=== PATIENT | male | born 1945 | race Caucasian/White ===

== ENCOUNTER 2017-11-14 12:34 | Emergency (ER) | payer MEDICARE, SELFPAY ==
--- NOTE | 2017-11-14 12:12 | EKG12_ITS ---
Test Reason : PAIN LF SIDE Blood Pressure : / mmHG Vent. Rate : 070 BPM Atrial Rate : 070 BPM P-R Int : 164 ms QRS Dur : 082 ms QT Int : 390 ms P-R-T Axes : 045 000 033 degrees QTc Int : 421 ms Normal sinus rhythm Normal ECG Confirmed by MARGARITA BUCKLEY, MOO ([id number]), editor magazine CARMEN MACIAS ([id number]) on 11/20/2017 5:30:08 PM Referred By: CAITLIN Confirmed By:MOO AVILA MD
--- NOTE | 2017-11-14 12:34 | DT_ITS ---
This patient was seen during an EMR downtime November 11, 2017 - November 18, 2017. This patient may have a combination of paper and electronic documentation or all paper documentation. All documentation is viewable within the e-chart portion of [facility] for each patient visit.
--- NOTE | 2017-11-14 13:45 | RAD_ITS ---
STUDY: X-RAY CHEST REASON FOR EXAM: Male, 72 years old. Weakness. TECHNIQUE: Frontal and lateral views of the chest. COMPARISON: June 22, 2017 FINDINGS: The lungs are mildly hyperexpanded and there is scarring at both bases unchanged. There is no demonstrated pleural abnormality. Normal size heart. Normal mediastinum and autumn. Normal visualized pulmonary arteries. There is atherosclerotic calcification of the aortic arch with tortuosity. Normal visualized thoracic spine. Normal visualized ribs, clavicles, and shoulders. There is no demonstrated abnormality of the visualized soft tissue structures of the upper abdomen. RAD/Chest PA and Lateral IMPRESSION: Stable appearance of the chest with no new or acute pathology. Electronically Signed: Rafael Godinez MD at 12:58 EDT , Service support ,
[2017-11-16 14:20] LABS: AST(SGOT) 15 U/L (15-37); Alanine Aminotransfer ALT/SGPT 22 U/L (16-61); Albumin, Serum 3.5 g/dL (3.2-5.0); Alkaline Phosphatase 56 U/L (45-117); Anion Gap 6 (5-15); BUN 23 mg/dL (7-18); BUN/Creat Ratio 25.3 RATIO (10-20); Calcium,Total 8.5 mg/dL (8.5-10.1); Chloride 107 mmol/L (98-107); Creatinine, Serum 0.91 mg/dL (0.70-1.30); EST Glomerular Filtration Rate 87 mL/min (>60); Est Glom Filt Rate - Afr Amer 105 mL/min (>60); Globulin 3.4 g/dL (2.2-4.2); Glucose 76 mg/dL (74-106); Protein, Total 6.9 g/dL (6.4-8.2); Sodium Level 142 mmol/L (136-145)
[2017-11-17 13:31] LABS: Differential Indicated SCAN CRITERIA MET; Hematocrit 41.7 % (40-54); Mean Corp Hgb Conc 33.6 g/gl (32-36); Mean Corpuscular Hgb 29.6 pg (27.0-32.0); Mean Corpuscular Volume 88.2 fL (80-94); Mean Platelet Vol. 9.3 fl (6.2-12.0); POSITIVE COUNT NO; POSITIVE DIFFERENTIAL YES; POSITIVE MORPHOLOGY NO; Platelet Count 173 K/mm3 (150-450); RBC Distribution Width CV 14.2 % (11.6-14.6); Red Blood Count 4.73 M/mm3 (4.6-6.2); White Blood Count 4.8 K/mm3 (4.4-11.0)
[2017-11-17 13:32] LABS: Absolute Lymphocyte Count 0.56 X10^3/ul (0.83-4.51); Absolute Neutrophil Count 3.6 X10^3/uL (2.0-7.7); Basophil# 0.02 X10^3/uL; Basophil% 0.4 % (0-1); Eosinophil# 0.19 X10^3/uL; Lymphocyte # 0.56 X10^3/ul (4.0); Lymphocyte % 11.8 % (19-41); Monocyte# 0.42 X10^3/uL; Monocyte% 8.8 % (0-10); Neutrophil # 3.56 X10^3/uL (2.7-7.7)
[2017-11-17 13:33] LABS: Differential Comment SCANNED
== END 2017-11-14 15:15 | disposition home or self-care (01) ==
LOC: ED 16:32
PROVIDERS: Emergency Provider Emergency Medicine; Family Provider Family Medicine; PCP Family Medicine
DX: M54.2 Cervicalgia (principal); R53.1 Weakness; E78.00 Pure hypercholesterolemia, unspecified; Z85.46 Personal history of malignant neoplasm of prostate; Z87.891 Personal history of nicotine dependence; Z79.82 Long term (current) use of aspirin; Z79.899 Other long term (current) drug therapy
CPT/HCPCS: 36415; 71046; 80053; 84484; 85025; 93005; 99283; A4216

== ENCOUNTER → 2017-12-27 09:41 | Outpatient (CLI) | payer MEDICARE, SELFPAY ==
[2017-12-27 11:43] LABS: PSA,Total- Diagnostic 1.26 ng/mL (0.0-4.0)
== END ==
PROVIDERS: Family Provider Family Medicine; PCP Family Medicine; Visit Provider Urology
DX: C61 Malignant neoplasm of prostate (principal)
CPT/HCPCS: 36415; 84153

== ENCOUNTER → 2018-01-23 08:47 | Outpatient (CLI) | payer MEDICARE, SELFPAY ==
[2018-01-23 09:08] LABS: Hematocrit 42.2 % (40-54); Hemoglobin 14.1 g/dl (13.0-16.5); Mean Corp Hgb Conc 33.4 g/gl (32-36); Mean Corpuscular Hgb 29.9 pg (27.0-32.0); Mean Corpuscular Volume 89.4 fL (80-94); Mean Platelet Vol. 9.4 fl (6.2-12.0); Platelet Count 197 K/mm3 (150-450); RBC Distribution Width CV 14.2 % (11.6-14.6); RBC Distribution Width SD 46.2 fl (35.1-43.9); Red Blood Count 4.72 M/mm3 (4.6-6.2); Scan Indicated on CBC? Y/N NO; White Blood Count 4.1 K/mm3 (4.4-11.0)
[2018-01-23 09:37] LABS: Anion Gap 4 (5-15); BUN 17 mg/dL (7-18); BUN/Creat Ratio 19.5 RATIO (10-20); Calcium,Total 8.7 mg/dL (8.5-10.1); Chloride 107 mmol/L (98-107); Creatinine, Serum 0.87 mg/dL (0.70-1.30); EST Glomerular Filtration Rate 91 mL/min (>60); Est Glom Filt Rate - Afr Amer 110 mL/min (>60); Glucose 106 mg/dL (74-106); Sodium Level 142 mmol/L (136-145)
== END ==
PROVIDERS: Family Provider Family Medicine; PCP Family Medicine; Visit Provider Otolaryngology
DX: Z01.818 Encounter for other preprocedural examination (principal)
CPT/HCPCS: 36415; 80048; 85027; 93005

== ENCOUNTER → 2018-01-28 16:37 | Outpatient (CLI) | payer MEDICARE, SELFPAY ==
--- NOTE | 2018-01-28 11:51 | SUBM_PTH ---
PATIENT: FRANTZ MEYERS [id number] AGE/SX: 79/M ROOM: RE01/28/[address]: Dr. Benigno Alvarez MD : 1945 BED: DIS: SPEC #: [id number] RECD: 01/28/18 16:34 STATUS: JOHN CELE #: [id number] DENISE: 01/28/18 11:[address]: Benigno Alvarez DEPT: SURGICAL PATHOLOGY RECD BY: Michael Azevedo ENTERED: 01/29/18 12:22 SP TYPE: SUBMAN GL OTHR DR: Dr. Warner Lewis MD [facility] Tissues: Salivary gland, NOS Procedures: Surgery Specimen Level V HEADER OPERATION: Excision left submandibular gland PRE-OP DIAGNOSIS: Chronic sialoadenitis TISSUE SUBMITTED: Left submandibular gland MICROSCOPIC DIAGNOSIS Left submandibular gland, excision: Major salivary gland tissue with focal mild chronic inflammation. SJ:davi 01/30/18 MICROSCOPIC DESCRIPTION Slides are reviewed. GROSS DESCRIPTION Received is one container labeled with the patient's name and not further designated. The specimen consists of two pieces of irregular glandular tissue weighing in aggregate 12.8 gm and measuring 4 x 2.5 x 2 cm and 3.5 x 2 x 1 cm. Both pieces are inked black. Sections do not reveal any mass lesion. The entire specimen is submitted in nine cassettes as follows: 1 & 2 ? smaller piece of tissue, 3-9 ? larger piece of tissue from one end to another end. / LEIF:davi 01/29/18 TC:3 CPT: 22752
== END ==
PROVIDERS: Family Provider Family Medicine; PCP Family Medicine; Visit Provider Otolaryngology
DX: K11.23 Chronic sialoadenitis (principal)
CPT/HCPCS: 88307

== ENCOUNTER 2018-02-04 08:26 | Day surgery (SDC) | payer MEDICARE, SELFPAY ==
[2018-02-04] VITALS (7 sets, daily range): BP systolic 117–157; BP diastolic 71–107; PULSE 64–74; RESP 14–18; TEMP 35.7–36.6; O2SAT 97–100; BMI 26.6
--- NOTE | 2018-02-04 09:30 | COLBX_PTH ---
PATIENT: FRANTZ MEYERS LOC: [facility] U#:[id number] AGE/SX: 72/M ROOM: RE02/04/[address]: Dr. Galen Levin MD : 1945 BED: DIS: 02/04/2018 SPEC #: [id number] RECD: 02/04/18 09:59 STATUS: JOHN CELE #: [id number] DENISE: 02/04/18 09:[address]: Galen Levin DEPT: SURGICAL PATHOLOGY RECD BY: Garfield Perez ENTERED: 02/04/18 12:27 SP TYPE: COLON BX OTHR DR: Dr. 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 No evidence of colitis. AM:davi 8/29/18 MICROSCOPIC DESCRIPTION Slides are reviewed. GROSS DESCRIPTION Received in fixative is one container labeled with the patient's name and designated rectal biopsy. The specimen consists of two irregular fragments of light etienne soft tissue that in aggregate measure 0.5 x 0.3 x 0.1 cm. The specimen is totally submitted in one cassette. / AM:davi 02/04/18 TC:5 CPT: 76626
--- NOTE | 2018-02-04 09:49 | PCM.OPRPT ---
Problem List (1) Radiation proctitis Status: Acute Report of Operation Date of Procedure: 02/04/18 Pre-Operative Diagnosis: Radiation proctitis, acute change of bowel habits, rectal bleeding Post-Operative Diagnosis: Patent colorectal anastomosis, mild radiation proctitis Surgery/Procedure Performed:: Colonoscopy with cold forcep rectal biopsies Description of Surgical Findings:: Timeout and informed consent was obtained. 72-year-old gent was taken to the endoscopy suite. He was placed in the left lateral decubitus position. Throughout the procedure total 100 mg Remeron 3.5 mg of Versed were given as intravenous sedation. Digital rectal exam performed. Mild hemorrhoidal changes. 3+ enlarged smooth prostate. No mass lesions. Flexible colonoscope inserted the rectum advanced quite readily through the left and transverse colon. The patient required being placed supine with transabdominal pressure to get the scope to go to the cecum. The cecum ileocecal valve area was nicely achieved. Bowel prep was good. The scope was carefully withdrawn from the cecum ascending colon transverse colon and descending colon without acute abnormality. Scattered diverticulosis noted on the left. Patent low colorectal anastomosis was identified. There was some mild erythema of the rectum consistent with proctitis. Cold forcep biopsies were obtained. Excess fluid and air was aspirated free the procedure was completed with the patient tolerating it well. Impression No evidence for radiation-induced stricturing. The rectal mucosa though erythematous quite distally still has normal texture. Final pathology is pending. Previous colonoscopy was November 27, 2016. Next screening colonoscopy recommended in 10 years. The patient will be notified of pathology results as they become available. There are no signs of obstruction or stricturing. Mild erythema of the very distal rectum noted. Cc: Dr. Warner Lewis Medications were given in 927. The scope [place] 0931[place] [id number]. The procedure was completed at 1042 Galen Levin M.D., F.A.C.S. Type of Anesthesia:: IV Sedation
== END 2018-02-04 10:47 | disposition home or self-care (01) ==
LOC: EN 08:26 → AC 08:27
PROVIDERS: Family Provider Family Medicine; PCP Family Medicine; Visit Provider Surgery
PROC: 0DJD8ZZ Inspection of Lower Intestinal Tract, Via Natural or Artificial Opening Endoscopic (ICD-10-PCS; CPT 45378; principal; 2018-02-04 09:25)
DX: K63.89 Other specified diseases of intestine (principal); K62.7 Radiation proctitis; K64.9 Unspecified hemorrhoids; I10 Essential (primary) hypertension; E78.5 Hyperlipidemia, unspecified; M19.90 Unspecified osteoarthritis, unspecified site; Z85.46 Personal history of malignant neoplasm of prostate; Z92.3 Personal history of irradiation; Z87.19 Personal history of other diseases of the digestive system; Z90.49 Acquired absence of other specified parts of digestive tract; Z79.899 Other long term (current) drug therapy; Z87.891 Personal history of nicotine dependence
CPT/HCPCS: 45380; 88305; 99152; 99153; J7120

== ENCOUNTER → 2018-05-22 18:45 | Outpatient (CLI) | payer MEDICARE, SELFPAY ==
--- OUTSIDE RECORDS SUMMARY | 2018-07-08 14:57 | XMS RPT_ITS ---
:1945 Author Organization OHIP Support Name Relationship Address Phone R Unavailable Unavailable Unavailable DESAI, LAITH Unavailable [id number] + [facility] [place] [address] CHRISTOPHER DESAI Unavailable [address] + [place] [address] R Unavailable Unavailable Unavailable DESAI, LAITH Unavailable [address] + [place] [address] DARRIUS DESAIICA Un[address] + [place] [address] R Unavailable Unavailable Unavailable DESAI, LAITH Unavailable [address] + [place] [address] DARRIUS DESAIICA Unavailable [address] + [place] [address] R Unavailable Unavailable Unavailable DESAI, LAITH Unavailable [address] + [place] [address] DARRIUS DESAIICA Unavailable [address] + [place] [address] R Unavailable Unavailable Unavailable DESAI, LAITH Unavailable [address] + [place] [address] DARRIUS DESAIICA Unavailable [address] + [place] [address] R Unavailable Unavailable Unavailable DESAI, LAITH Unavailable [address] + [place] [address] STEPHANIE DESAISSICA Unavailable [address] + [place] [address] R Unavailable Unavailable Unavailable DESAI, LAITH Unavailable [address] + [place] [address] STEPHANIE DESAISSICA Unavailable [address] + [place], [place] R Unavailable Unavailable Unavailable DESAI, LAITH Unavailable [address] + [place] [address] DARRIUS DESAIICA Unavailable [address] + [place], [place] R Unavailable Unavailable Unavailable DESAI, LAITH Unavailable [address] + [place] [address] DESAIDARRISU TAYLORICA Unavailable [address] + [place], [place] R Unavailable Unavailable Unavailable DESAI, LAITH Unavailable [address] + [place] [address] R Unavailable Unavailable Unavailable DESAI, LAITH Unavailable [address] + [place] [address] R Unavailable Unavailable Unavailable DESAI, LAITH Unavailable [address] + [place] [address] R Unavailable Unavailable Unavailable DESAI, LAITH Unavailable [address] + [place] [address] Care Team Providers Name Role Phone REGINE DE LEÓN (YE) Attending Unavailable WARNER OVERTON Attending Unavailable BROOKLYNN, WARNER A Referring Unavailable BROOKLYNN, WARNER A Referring Unavailable Betty Omer Attending Unavailable Brooklynn, Warner Primary Care Unavailable Betty Omer Referring Unavailable Galen Levin Attending Unavailable Brooklynn, Warner Referring Unavailable Ruben Freeman Attending Unavailable Brooklynn, Warner Primary Care Unavailable Galen Levin Attending Unavailable Galen Levin Referring Unavailable Brooklynn, Warner Primary Care Unavailable Slade Reid Attending Unavailable Lennie Nino Referring Unavailable Brooklynn, Warner Primary Care Unavailable Brooklynn, Warner Primary Care Unavailable Tristen Kaplan Attending Unavailable Slade Reid Attending Unavailable Lennie Nino Referring Unavailable Brooklynn, Warner Primary Care Unavailable Galen Levin Attending Unavailable Brooklynn, Warner Referring Unavailable Brooklynn, Warner Primary Care Unavailable Carlos Alvarez Attending Unavailable Carlos Alvarez Referring Unavailable Brooklynn, Warner Primary Care Unavailable Galen Levin Attending Unavailable Poonam Galen Referring Unavailable Brooklynn, Warner Primary Care Unavailable Carlos Alvarez Attending Unavailable Warner Overton Primary Care Unavailable Galen Levin Attending Unavailable Galen Levin Referring Unavailable Warner Overton Primary Care Unavailable Galen Levin Consulting Unavailable Galen Levin Attending Unavailable Warner Overton Referring Unavailable PROBLEMS PROBLEMS DATE TYPE CONDITION / CODE ATTENDING STATUS SOURCE 05/23/2018 Unknown R82.998 - Other [place], Betty Active [place] abnormal findings in [facility] urine / Hospital R82.998(ICD-10) Repository 04/24/2018 Unknown K62.5 - Hemorrhage CebulGalen Active [place] of anus and rectum / [facility]ly [facility] K62.5(ICD-10) Hospital Repository 01/17/2018 Unknown 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 / [facility] K62.7(ICD-10) Hospital Repository 12/27/2017 Unknown C61 - Malignant LennieSlade Active [place] neoplasm of prostate [facility] / C61(ICD-10) Hospital Repository 12/06/2017 Unknown M54.2 - Cervicalgia Jwayyed, Active [place] / M54.2(ICD-10) [facility] Repository 12/01/2014 Active Mixed hyperlipidemia NA Active [place] / E78.2(ICD-10) Clinic Main [place] Repository 10/25/2017 Active Other superintendent container terminal NA Active [place] (current) drug Clinic Main therapy / [place] Z79.899(ICD-10) Repository PROCEDURES PROCEDURES No Procedure Records FoundRESULTS RESULTS PROGRESS Observed: 06/27/2018 Status: COMPLETED Source: [place] 7:47 AM [facility] REPOSITORY HNO ID: [id number] Author: Umang De León Service: (none) Author Type: Physician Documentation Improvement Specialist Type: Progress Notes Filed: 06/27/2018 8:36 AM Note Text: Chief Complaint Patient presents with: ED Follow-up HPI Frantz Desai is a 72 year old male who presents here today for ER Follow Up.. Patient was in ER on 06/24/18 for intermittent chest pain. Workup at ER was negative. patient reports he is still getting intermittent twinges of pain on left chest wall/breast. No aggravating or alleviating factors. Symptoms are random. He can not illicit the pain. Currently has mild ache in left lower lateral chest wall. No shortness of breath, no SHELTON, chest pain not worse with activity. No pleuritic chest pain Patient has been trimming his pine trees recently using hedge clippers. No heartburn or abdominal pain. No n/v/d No past hx of cardiac dz No significant family hx of Cardiac dz patient is former smoker- quit . Past medical history, appointments, medications, allergies reviewed. Previous Medical History PAST MEDICAL HISTORY Diagnosis Date - Acid reflux - Allergic rhinitis, cause unspecified Allergic rhinitis - Enlarged prostate - Hypertrophy of prostate without urinary obstruction and other lower urinary tract symptoms (LUTS) Hypertrophy of the prostate w/o obstruction - Impaired fasting glucose 10/13/2010 - Irritable bowel syndrome Irritable bowel - Mental disorder anxiety - Migraine - Mixed hyperlipidemia Hyperlipidemia - Nontraumatic rupture of tendons of biceps (long head) 2006 right arm - Osteoarthrosis, unspecified whether generalized or localized, other specified sites Osteoarthritis Previous Surgical History PAST SURGICAL HISTORY Procedure Laterality Date - CARD CATH DIAGNOSTIC 2002 normal - COLONOSCOPY reported polyp removed - no followup indicated - COLONOSCOPY 03/09/03 Ashleigh Levin. No polyps. Sigmoid diveticulosis - COLONOSCOPY 09/04/06 @ as part of [facility] physical. No polyp , repeat in 10 yrs. - COLONOSCOPY 11/27/2016 repeat 10 yrs - COLONOSCOPY 02/04/2018 Dr. Levin Repeat 10 yrs - KNEE SCOPE,DIAGNOSTIC 2002 Arthroscopy, knee right - LAP COLECTOMY, SIGMOID W/SPEECH INSTRUCTOR 03/10/03 Ashleigh Kelley Diverticulitis with localized perforation - REMOVAL OF TONSILS,<12 Y/O Tonsillectomy - REPAIR ING HERNIA,5+Y/O,REDUCIBL 1994 Hernia repair, inguinal - STRESS TEST 10/25/2016 negative - STRESS TEST 10/25/2016 WNL Family History FAMILY HISTORY Problem Relation Age of Onset - Cancer Mother lung- age 75 - Cancer Brother prostate diagnosed at 64 Patient Allergies ALLERGIES Allergen Reactions - Nut - Unspecified Anaphylaxis headache - Sulfa (Sulfonamide * Rash - Alcohol Other: See Comments headache - Chocolate Other: See Comments headaches Current Medications Current Outpatient Prescriptions on File Prior to Visit: simvastatin (ZOCOR) 20 mg tablet Take 1 tablet by mouth daily at bedtime. rizatriptan (MAXALT) 10 mg tablet Take 1 tablet by mouth as needed. May repeat in 2 hours if needed. No more than 2 tabs in 24hours. sertraline (ZOLOFT) 50 mg tablet TAKE ONE AND ONE-HALF TABLETS ONCE DAILY etodolac (LODINE) 400 mg tablet Take 1 tablet by mouth once daily. tamsulosin ER (FLOMAX) 0.4 mg cap Take 1 capsule by mouth once daily. fluticasone (FLONASE) 50 mcg/actuation nasal spray Use 1 [place] in each nostril once daily. Rinse mouth after use. Multivitamin ORAL Tab Take one(1) tablet daily. Nmwldszuotvdvji-Mxysivbwt-CO (BROMFED DM) 2-30-10 mg/5 mL syrup Take 5-10 ml po q6h prn ADULT LOW DOSE ASPIRIN 81 MG TAB, DELAYED RELEASE Take one(1) tablet daily. No current facility-administered medications on file prior to visit. Social History Social History Marital status: Spouse name: Emmanuelle Years of education: Number of children: 2 Occupational History Occupation Employer Comment [employer]- retired [employer]* Social History Main Topics Smoking status: Former Smoker Packs/day: 0.00 Years: 0.00 Types: Cigarettes Smokeless tobacco: Former User Comment: last smoked 20 years ago (age 39). Smoked for 25 years Alcohol use: No Drug use: No Sexual activity: Yes Partners with: Female Review of Symptoms REVIEW OF SYSTEMS GENERAL: No weight loss, malaise or fevers NECK: Negative for lumps, goiter, pain and significant neck swelling RESPIRATORY: Negative for cough, hemoptysis, wheezing, COPD, dyspnea or shortness of breath CARDIOVASCULAR: Negative for chest pain, leg swelling, CHF or palpitations, See HPI GI: No nausea, vomiting, or diarrhea and No heartburn or reflux symptoms : No history of worsening. dysuria, frequency or incontinence NEURO: No history of headaches, syncope, paralysis, seizures or tremors EXAM: BP 140/94 Pulse 64 Wt 80.3 kg (177 lb) BMI 29.01 kg/m? BP 144/84 Pulse 64 Wt 80.3 kg (177 lb) BMI 29.01 kg/m? Last 5 Encounter BP Readings: Date: BP: 06/27/2018 140/94 02/09/2018 142/84 01/08/2018 100/80 12/31/2017 122/72 10/30/2017 134/78 General Appearance: Well appearing, alert, in no acute distress, well-hydrated, well nourished.. Neck: Supple, no adenopathy; thyroid symmetric, normal size, no bruits. Lungs: lungs clear to auscultation. No wheezing, rhonchi, rales. Heart: RRR without murmur, gallop, or rubs. No ectopy. Chest Wall: no pain to palp. No abnormality noted. Breast: Left breast without masses or abnormality. No axillary lymphadenopathy. Health Maintenance List DTAP,TDAP,TD(1 - Tdap) due on 1963 DIABETES SCREEN due on 10/25/2020 LIPID SCREEN due on 10/25/2022 COLORECTAL CANCER SCREENING,SEE MODIFIER due on 02/05/2028 ADULT PREVNAR-13 Completed INFLUENZA Completed HEPATITIS C SCREENING Completed PNEUMOVAX AGE 65 AND OVER WITH 5YR LOOKBACK Completed Data reviewed ER Report: ECG: NSR Labs: unremarkable CXR: No acute findings. Left lung base with evidence of scarring and/or linear atelectasis. ASSESSMENT/PLAN: 1. Atypical chest pain - ICD9: 786.59, ICD10: R07.89 (primary diagnosis) Atypical chest pain, symptoms are not consistent with cardiac ischemia due to nonexertional nature of symptom and localization of the pain possible etiology include musculoskeletal Given age, will schedule for stress test, however my suspicion for cardiac is low. Symptoms are more consistent with MSK give the location and nature of pain. Patient is to let us know or go to ER if symptoms worsen or if he develops additional symptoms such as lightheadedness, shortness of breath or SHELTON. - STRESS REGULAR W/TREAD 2. Elevated BP without diagnosis of hypertension - ICD9: 796.2, ICD10: R03.0 - Recheck today with minimal improvement - Patient has appointment scheduled in 2 weeks so have BP recheck during that visit. - Goal of BP <130/80 Discussed possible red flags and when to seek medical attention. LORIE BLEVINS Observed: 06/27/2018 Status: COMPLETED Source: [place] 7:40 AM [facility] RE[facility]IT[facility] FRANTZ DESAI ([id number]) 1945 M Date Time Provider Department 06/27/18 7:40 AM MIKE DE LEÓN) RENZO During your visit today, we recorded the following information about you: Pulse Blood pressure Weight 64/minute 144/84 80.3 kg REGINE DE LEÓN PA-C 06/27/2018 8:36 AM Signed Chief Complaint Patient presents with: ED Follow-up HPI Frantz Desai is a 72 year old male who presents here today for ER Follow Up.. Patient was in ER on 06/24/18 for intermittent chest pain. Workup at ER was negative. patient reports he is still getting intermittent twinges of pain on left chest wall/breast. No aggravating or alleviating factors. Symptoms are random. He can not illicit the pain. Currently has mild ache in left lower lateral chest wall. No shortness of breath, no SHELTON, chest pain not worse with activity. No pleuritic chest pain Patient has been trimming his pine trees recently using hedge clippers. No heartburn or abdominal pain. No n/v/d No past hx of cardiac dz No significant family hx of Cardiac dz patient is former smoker- quit . Past medical history, appointments, medications, allergies reviewed. Previous Medical History PAST MEDICAL HISTORY Diagnosis Date - Acid reflux - Allergic rhinitis, cause unspecified Allergic rhinitis - Enlarged prostate - Hypertrophy of prostate without urinary obstruction and other lower urinary tract symptoms (LUTS) Hypertrophy of the prostate w/o obstruction - Impaired fasting glucose 10/13/2010 - Irritable bowel syndrome Irritable bowel - Mental disorder anxiety - Migraine - Mixed hyperlipidemia Hyperlipidemia - Nontraumatic rupture of tendons of biceps (long head) 2006 right arm - Osteoarthrosis, unspecified whether generalized or localized, other specified sites Osteoarthritis Previous Surgical History PAST SURGICAL HISTORY Procedure Laterality Date - CARD CATH DIAGNOSTIC 2002 normal - COLONOSCOPY reported polyp removed - no followup indicated - COLONOSCOPY 03/09/03 Ashleigh Levin. No polyps. Sigmoid diveticulosis - COLONOSCOPY 09/04/06 @ as part of [facility] physical. No polyp , repeat in 10 yrs. - COLONOSCOPY 11/27/2016 repeat 10 yrs - COLONOSCOPY 02/04/2018 Dr. Levin Repeat 10 yrs - KNEE SCOPE,DIAGNOSTIC 2002 Arthroscopy, knee right - LAP COLECTOMY, SIGMOID W/SPEECH INSTRUCTOR 03/10/03 Ashleigh Levin. Diverticulitis with localized perforation - REMOVAL OF TONSILS,<12 Y/O Tonsillectomy - REPAIR ING HERNIA,5+Y/O,REDUCIBL 1994 Hernia repair, inguinal - STRESS TEST 10/25/2016 negative - STRESS TEST 10/25/2016 WNL Family History FAMILY HISTORY Problem Relation Age of Onset - Cancer Mother lung- age 75 - Cancer Brother prostate diagnosed at 64 Patient Allergies ALLERGIES Allergen Reactions - Nut - Unspecified Anaphylaxis headache - Sulfa (Sulfonamide * Rash - Alcohol Other: See Comments headache - Chocolate Other: See Comments headaches Current Medications Current Outpatient Prescriptions on File Prior to Visit: simvastatin (ZOCOR) 20 mg tablet Take 1 tablet by mouth daily at bedtime. rizatriptan (MAXALT) 10 mg tablet Take 1 tablet by mouth as needed. May repeat in 2 hours if needed. No more than 2 tabs in 24hours. sertraline (ZOLOFT) 50 mg tablet TAKE ONE AND ONE-HALF TABLETS ONCE DAILY etodolac (LODINE) 400 mg tablet Take 1 tablet by mouth once daily. tamsulosin ER (FLOMAX) 0.4 mg cap Take 1 capsule by mouth once daily. fluticasone (FLONASE) 50 mcg/actuation nasal spray Use 1 [place] in each nostril once daily. Rinse mouth after use. Multivitamin ORAL Tab Take one(1) tablet daily. Sdqdhjrsrnclmba-Ibcgjxzlj-FH (BROMFED DM) 2-30-10 mg/5 mL syrup Take 5-10 ml po q6h prn ADULT LOW DOSE ASPIRIN 81 MG TAB, DELAYED RELEASE Take one(1) tablet daily. No current facility-administered medications on file prior to visit. Social History Social History Marital status: Spouse name: Emmanuelle Years of education: Number of children: 2 Occupational History Occupation Employer Comment [employer]- retired [employer]* Social History Main Topics Smoking status: Former Smoker Packs/day: 0.00 Years: 0.00 Types: Cigarettes Smokeless tobacco: Former User Comment: last smoked 20 years ago (age 39). Smoked for 25 years Alcohol use: No Drug use: No Sexual activity: Yes Partners with: Female Review of Symptoms REVIEW OF SYSTEMS GENERAL: No weight loss, malaise or fevers NECK: Negative for lumps, goiter, pain and significant neck swelling RESPIRATORY: Negative for cough, hemoptysis, wheezing, COPD, dyspnea or shortness of breath CARDIOVASCULAR: Negative for chest pain, leg swelling, CHF or palpitations, See HPI GI: No nausea, vomiting, or diarrhea and No heartburn or reflux symptoms : No history of worsening. dysuria, frequency or incontinence NEURO: No history of headaches, syncope, paralysis, seizures or tremors EXAM: BP 140/94 Pulse 64 Wt 80.3 kg (177 lb) BMI 29.01 kg/m? BP 144/84 Pulse 64 Wt 80.3 kg (177 lb) BMI 29.01 kg/m? Last 5 Encounter BP Readings: Date: BP: 06/27/2018 140/94 02/09/2018 142/84 01/08/2018 100/80 12/31/2017 122/72 10/30/2017 134/78 General Appearance: Well appearing, alert, in no acute distress, well-hydrated, well nourished.. Neck: Supple, no adenopathy; thyroid symmetric, normal size, no bruits. Lungs: lungs clear to auscultation. No wheezing, rhonchi, rales. Heart: RRR without murmur, gallop, or rubs. No ectopy. Chest Wall: no pain to palp. No abnormality noted. Breast: Left breast without masses or abnormality. No axillary lymphadenopathy. Health Maintenance List DTAP,TDAP,TD(1 - Tdap) due on 1963 DIABETES SCREEN due on 10/25/2020 LIPID SCREEN due on 10/25/2022 COLORECTAL CANCER SCREENING,SEE MODIFIER due on 02/05/2028 ADULT PREVNAR-13 Completed INFLUENZA Completed HEPATITIS C SCREENING Completed PNEUMOVAX AGE 65 AND OVER WITH 5YR LOOKBACK Completed Data reviewed ER Report: ECG: NSR Labs: unremarkable CXR: No acute findings. Left lung base with evidence of scarring and/or linear atelectasis. ASSESSMENT/PLAN: 1. Atypical chest pain - ICD9: 786.59, ICD10: R07.89 (primary diagnosis) Atypical chest pain, symptoms are not consistent with cardiac ischemia due to nonexertional nature of symptom and localization of the pain possible etiology include musculoskeletal Given age, will schedule for stress test, however my suspicion for cardiac is low. Symptoms are more consistent with MSK give the location and nature of pain. Patient is to let us know or go to ER if symptoms worsen or if he develops additional symptoms such as lightheadedness, shortness of breath or SHELTON. - STRESS REGULAR W/TREAD 2. Elevated BP without diagnosis of hypertension - ICD9: 796.2, ICD10: R03.0 - Recheck today with minimal improvement - Patient has appointment scheduled in 2 weeks so have BP recheck during that visit. - Goal of BP <130/80 Discussed possible red flags and when to seek medical attention. REGINE DE LEÓN PA-C Referring Provider: SELF [[id number]] Allergies As of Date: 06/27/2018 Noted Allergy Reaction NUT - UNSPECIFIED 07/06/2009 10 - Anaphylaxis Comments: headache SULFA (SULFONAMIDE ANTIBIOTICS) 04/16/2005 2 - Rash ALCOHOL 07/06/2009 14 - Other: See Comments Comments: headache CHOCOLATE 07/06/2009 14 - Other: See Comments Comments: headaches Date Reviewed: 06/27/2018 Reviewed by: Mike) Sarthak - Fully Assessed Reason for Visit: ED Follow-up [821] Primary Visit Diagnosis:Atypical chest pain [R07.89] Other Visit Diagnosis:Elevated BP without diagnosis of hypertension [R03.0] Order(s):STRESS REGULAR W/TREAD [[id number]] Order #: [id number]: 1 Prescriptions as of 06/27/2018 Sig: SIMVASTATIN 20 MG TABLET Take 1 tablet by mouth daily * RIZATRIPTAN 10 MG TABLET Take 1 tablet by mouth as nee* SERTRALINE 50 MG TABLET TAKE ONE AND ONE-HALF TABLETS* ETODOLAC 400 MG TABLET Take 1 tablet by mouth once d* TAMSULOSIN 0.4 MG CAPSULE Take 1 capsule by mouth once * FLUTICASONE 50 MCG/ACTUATION * Use 1 [place] in each nostril o* MULTIVITAMIN TABLET Take one(1) tablet daily. BROMPHENIRAMINE-PSEUDOEPHEDRI* Take 5-10 ml po q6h prn ADULT LOW DOSE ASPIRIN 81 MG * Take one(1) tablet daily. Problem List As Of Date 06/27/2018 Noted Resolved Osteoarthrosis, unspecified whether generalized*INVALID FOR* Mixed hyperlipidemia [E78.2] INVALID FOR* DISC DEGENERATION NOS [GDH8352] INVALID FOR* Cough [R05] INVALID FOR*07/06/2009 More... More... Colon polyps [K63.5] INVALID FOR* More... Spinal stenosis, lumbar [M48.061] INVALID FOR* Melanoma [C43.9] INVALID FOR* More... Impaired fasting glucose [R73.01] INVALID FOR* Family history of prostate cancer [Z80.42] INVALID FOR* Prostate cancer (HCC) [C61] INVALID FOR* More... Well adult exam [Z00.00] INVALID FOR* More... Irritable bowel syndrome without diarrhea [K58.*INVALID FOR* Allergic rhinitis [J30.9] INVALID FOR* Benign non-nodular prostatic hyperplasia withou*INVALID FOR* Cluster headache, not intractable [G44.009] INVALID FOR* More... Generalized anxiety disorder [F41.1] INVALID FOR* Hiatal hernia [K44.9] INVALID FOR* GERD with esophagitis [K21.0] INVALID FOR* Medicare annual wellness visit, subsequent [Z00*INVALID FOR* More... Encounter Status:Closed by REGINE MAN on 06/27/18 12 LEAD ELECTROCARDIOGRAM Observed: 06/26/2018 Status: F Source: [place] 3:56 PM [facility] REPOSIT[facility] Cardiovascular Services [address] [place] [id number] 12 Lead EKG 06/24/18 1337 MR#: [id number] Acct: [id number] Name: FRANTZ DSEAI Rep #: [id number] : 1945 72 From: Javier Galvez MD Attending Dr: Status: DEP ER Ordering Dr: Tristen Kaplan MD Date: 06/24/18 Location: ED Sex: M C Admitted: Test Reason : CHEST PAIN Blood Pressure : / mmHG Vent. Rate : 077 BPM Atrial Rate : 077 BPM P-R Int : 166 ms QRS Dur : 076 ms QT Int : 380 ms P-R-T Axes : 049 -03 053 degrees QTc Int : 430 ms Normal sinus rhythm Normal ECG Confirmed by LEONOR BUCKLEY, JAVIER ([id number]), editorial intern CARMEN MACIAS ([id number]) on 06/26/2018 3:55:39 PM Referred By: Slade Reid Confirmed By:JAVIER GALVEZ MD 06/26/18 1555 Date Javier Galvez MD CC: Tristen Kaplan MD; Warner Overton MD Signed EMERGENCY DEPARTMENT Observed: 06/24/2018 Status: F Source: [place] SUMMARY 4:09 PM [facility] REPOSITORY [facility] Medical Records Department [address] [place] [address] Emergency Department Summary 06/24/18 1553 MR#: [id number] Acct: [id number] Name: FRANTZ DESAI Rep #: [id number] : 1945 72 From: Tristen Kaplan MD PCP: Warner Overton MD Status: REG ER - ER Visit Summary Date of Service: 06/24/18 Chief Complaint: Chest pain History of Present Illness: The patient is a 72 M with left- sided chest pain intermittently for 3 days. The pain feels like a twinge in his left chest. Associated with some mild nausea and hot flashes. No pain or symptoms with exertion. No history of coronary disease, aortic disease, or venous thromboembolism. No cough or sputum. No other GI symptoms. Non-smoker. History of hyperlipidemia. Physical Examination: Afebrile and vital signs unremarkable. Alert and oriented. No acute distress. Skin appears normal without pallor or diaphoresis. Heart regular rate and rhythm. Lungs clear in all carnes. Abdomen soft and nontender. Extremities nontender with no edema. Pulses strong and equal. Test Results: EKG showed sinus rhythm at a rate of 77. No signs of ischemia, infarction, or nonspecific changes. Chest x-ray showed left base atelectasis versus scarring. CBC, metabolic panel, troponin normal. Emergency Department Course and Treatment: Patient declined aspirin because of an upcoming hemorrhoid surgery. He was placed on a monitor. Had no further events or changes during his stay. His workup was unremarkable. His symptoms are atypical for cardiac pain. There is nothing to suggest aortic disease or PE. This does not appear to be infectious. He does have a history of similar symptoms from acid reflux. This was considered. Patient's history, exam, and workup are reassuring. I advised that I cannot rule out cardiac, aortic, or PE disease entirely, but I have low suspicion. Patient was discussed with Dr. Leija who was on-call for his PCP. They will follow-up with him as an outpatient. Advised the patient to return right away if he has new or worsening issues. Treatment Plan: As above Disposition: Discharge Impression: 1. Chest pain unclear etiology This note was generated with Central Test[employer] software. It may contain incorrect words, spelling, and punctuation that were not noted in review of the chart prior to signing ED Disposition - Plan for ED Patient: Chief Complaint: Chest Pain Referrals: Warner Overton MD [Primary Care Provider] - What to do if you have Problems For any increased pain, shortness of breath, bleeding, nausea or vomiting, chest pain, or any unexpected problems, contact your Primary Care Provider. Call [facility] ([phone]) or report to the closest Emergency Room. Call 911 if necessary. 06/24/18 1609 <Electronically signed by Tristen Kaplan MD> Date Tristen Kaplan MD Cosigner Signature (If Indicated): Date CC: Warner Overton MD DISCHARGE INSTRUCTION Observed: 06/24/2018 Status: F Source: [place] 4:09 PM [facility] REPOSITORY [facility] Medical Records Department [address] [place] [address] Discharge Instruction 06/24/18 1558 MR#: [id number] Acct: [id number] Name: FRANTZ DESAI Rep #: [id number] : 1945 72 From: Tristen Kaplan MD PCP: Warner Overton MD Status: REG ER ED Disposition - Plan for ED Patient: Chief Complaint: Chest Pain Instructions: ED Chest Pain Atypical Unkn Cause Referrals: Warner Overton MD [Primary Care Provider] - What to do if you have Problems For any increased pain, shortness of breath, bleeding, nausea or vomiting, chest pain, or any unexpected problems, contact your Primary Care Provider. Call [facility] ([phone]) or report to the closest Emergency Room. Call 911 if necessary. 06/24/18 1609 <Electronically signed by Tristen Kaplan MD> Date Tristen Kaplan MD Cosigner Signature (If Indicated): Date CC: Warner Overton MD CHEST 1 VIEW Observed: 06/24/2018 Status: F Source: [place] (PORTABLE) 2:00 PM [facility] REPOSITORY [facility] Imaging Services [address] [place] [id number] Chest 1 View (Portable) MR#: [id number] Acct: [id number] Name: FRANTZ DESAI Rep #: [id number] : 1945 M 72 From: Mark Kelsey MD PCP: Warner Overton MD Status: REG ER Study: Chest 1 View (Portable) Date of Exam: 06/24/18 Exam# [id number] Ordering Dr: Tristen Kaplan MD STUDY: X-RAY CHEST REASON FOR EXAM: Male, 72 years old. Chest pain. TECHNIQUE: Single AP portable view of the chest. COMPARISON: Comparison is made with prior study dated June 22, 2017. FINDINGS: EKG electrodes are seen. Stable mild increased markings at the left lung base suggestive of atelectasis and/or scarring. There is no demonstrated pleural abnormality. Normal size heart. Normal mediastinum and autumn. Normal visualized pulmonary arteries. There is atherosclerotic tortuosity of the aortic arch and descending thoracic aorta. Normal visualized thoracic spine. Normal visualized ribs, clavicles, and shoulders. There is no demonstrated abnormality of the visualized soft tissue structures of the upper abdomen. RAD/Chest 1 View (Portable) IMPRESSION: Stable mild increased linear markings at the left lung base suggestive of linear atelectasis and/or scarring. Electronically Signed: Mark Kelsey MD at 14:41 EST Tel [phone], Service support , CC: Tristen Kaplan MD; Warner Overton MD Forwarder Operator: Signed CBC W/DIFF, AUTOMATED Collected: 06/24/2018 Status: F Source: [place] 1:42 PM [facility] REPOSIT[facility] TYPE CODE TESTS RESULT OUT OF RANGE REFERENCE UNITS LAB L100.1000 4.4-11.0 K/mm3 Normal WBC 4.9 LAB L100.1200 4.6-6.2 M/mm3 Normal RBC 4.96 LAB L100.1300 13.0-16.5 g/dl Normal HGB 14.3 LAB L100.1400 40-54 % Normal HCT 43.8 LAB L100.1500 80-94 fL Normal MCV 88.3 LAB L100.1600 27.0-32.0 pg Normal MCH 28.8 LAB L100.1700 32-36 g/gl Normal MCHC 32.6 LAB L100.1810 11.6-14.6 % Normal RDW CV 14.2 LAB L100.1820 35.1-43.9 fl High RDW SD 45.5 LAB L100.1900 150-450 K/mm3 Normal PLT 199 LAB L100.2000 6.2-12.0 fl Normal MPV 9.7 LAB L100.2100 47-70 % High NEUT% 70.9 LAB L100.2200 19-41 % Low LY% 16.8 LAB L100.2300 0-10 % Normal MONO% 8.6 LAB L100.2400 0-5 % Normal EO% 2.9 LAB L100.2500 0-1 % Normal BASO% 0.6 LAB L100.2550 0.0-0.9 % Normal IM GRAN % 0.200 Result Comment: IG% - Immature Granulocytes (promyelocytes, myelocytes and metamyelocytes) > 1% indicates that a LEFT SHIFT is Present. LAB L100.2620 2.0-7.7 X10 3/uL Normal Absolute Neut 3.5 LAB L100.2720 0.83-4.51 X10 3/ul Low Absolute Lymph 0.82 Performed By: #### L100.0100 #### [facility] [address] [place], [place], [address] BASIC METABOLIC Collected: 06/24/2018 Status: F Source: [place] PROFILE ([facility]) 1:42 PM [facility] REPOSIT[facility] TYPE CODE TESTS RESULT OUT OF RANGE REFERENCE UNITS LAB L501.0100 74-106 mg/dL Normal GLU 95 Result Comment: Please note revised GLUCOSE reference range effective 2017. LAB L501.1000 7-18 mg/dL Normal BUN 15 LAB L501.1100 0.70-1.30 mg/dL Normal CREAT,SERUM 0.85 Result Comment: The validity of the calculated GFR AND GFRAA in patients over 70 years has not been determined. Clinical correlation is essential. LAB L501.1110 >60 mL/min Normal EST GFR 94 Result Comment: Non- GFR Calc LAB L501.1115 >60 mL/min Normal EST GFR - AA 113 Result Comment: GFR Calc LAB L501.1255 ml/min Normal Estimated CRCL 74.88 LAB L501.1300 10-20 RATIO Normal BUN/CRE 17.6 LAB L501.2200 8.5-10 mg/dL Normal .1 CA 8.7 LAB L501.5300 136-14 mmol/L Normal 5 NA 140 LAB L501.5600 3.5-5. mmol/L Normal 1 K 4.0 LAB L501.5900 98-107 mmol/L Normal CL 106 LAB L501.6100 21.0-3 mmol/L Normal 2.0 CO2 27.0 LAB L501.6200 5-15 Normal GAP 7 Performed By: #### L500.2500, L501.4010 #### [facility] [address] [place], [address] TROPONIN-I Collected: 06/24/2018 Status: F Source: [place] 1:42 PM [facility] REPOSITORY TYPE CODE TESTS RESULT OUT OF RANGE REFERENCE UNITS LAB L501.4010 <0.045 ng/mL Normal < 0.015 TROPONIN-I Result Comment: TROPONIN-I EXPECTED VALUES <0.045 Negative 0.045 - 0.590 Consistent with Cardiac Damage > OR = 0.600 Critical Value Not every elevated troponin is indicative of MA. These values should be used with clinical judgement in examining the patient's clinical picture for diagnosis. To establish a diagnosis of MA versus myocardial injury, there must be a demonstrated rise and/or fall in the troponin values, in addition to ischemic symptoms, EKG changes, new regional wall motion abnormality, and/or angiographical evidence. PLEASE NOTE: REFERENCE RANGES EDITED 17 Performed By: #### L500.2500, L501.4010 #### [facility] [address] [place], [address] CBC-COMPLETE BLOOD CNT Collected: 06/23/2018 Status: F Source: [place] NO DIFF 9:28 AM [facility] REPOSITORY Order Comment: PSAD FOR DR REID CBC BMP FOR DR LEVIN TYPE CODE TESTS RESULT OUT OF RANGE REFERENCE UNITS LAB L100.1000 4.4-11.0 K/mm3 Normal WBC 4.5 LAB L100.1200 4.6-6.2 M/mm3 Normal RBC 5.05 LAB L100.1300 13.0-16.5 g/dl Normal HGB 14.7 LAB L100.1400 40-54 % Normal HCT 45.5 LAB L100.1500 80-94 fL Normal MCV 90.1 LAB L100.1600 27.0-32.0 pg Normal MCH 29.1 LAB L100.1700 32-36 g/gl Normal MCHC 32.3 LAB L100.1810 11.6-14.6 % Normal RDW CV 14.2 LAB L100.1820 35.1-43.9 fl High RDW SD 46.2 LAB L100.1900 150-450 K/mm3 Normal PLT 185 LAB L100.2000 6.2-12.0 fl Normal MPV 9.5 Performed By: #### L100.0500 #### [facility] [address] [place], [address] BASIC METABOLIC Collected: 06/23/2018 Status: F Source: [place] PROFILE (BMP) 9:28 AM [facility] REPOSIT[facility] Order Comment: PSAD FOR DR REID CBC BMP FOR DR LEVIN TYPE CODE TESTS RESULT OUT OF RANGE REFERENCE UNITS LAB L501.0100 74-106 mg/dL High GLU 111 Result Comment: Fasting Glucose result from 100 to 125 mg/dL suggests IMPAIRED HOMEOSTASIS per A.D.A. criteria. Please note revised GLUCOSE reference range effective 2017. LAB L501.1000 7-18 mg/dL High BUN 19 LAB L501.1100 0.70-1.30 mg/dL Normal CREAT,SERUM 0.83 Result Comment: The validity of the calculated GFR AND GFRAA in patients over 70 years has not been determined. Clinical correlation is essential. LAB L501.1110 >60 mL/min Normal EST GFR 97 Result Comment: Non- GFR Calc LAB L501.1115 >60 mL/min Normal EST GFR - AA 117 Result Comment: GFR Calc LAB L501.1300 10-20 RATIO High BUN/CRE 22.9 LAB L501.2200 8.5-10.1 mg/dL CA Normal 8.8 LAB L501.5300 136-145 mmol/L NA Normal 140 LAB L501.5600 3.5-5.1 mmol/L K Normal 4.2 LAB L501.5900 98-107 mmol/L CL Normal 104 LAB L501.6100 21.0-32.0 mmol/L Normal CO2 30.0 LAB L501.6200 5-15 Normal GAP 6 Performed By: #### L500.2500, L501.9940 #### [facility] [address] [place], [address] PSA,TOTAL- DIAGNOSTIC Collected: 06/23/2018 Status: F Source: [place] 9:28 AM [facility] REPOSIT[facility] Order Comment: PSAD FOR DR REID CBC BMP FOR DR LEVIN TYPE CODE TESTS RESULT OUT OF RANGE REFERENCE UNITS LAB L501.9940 0.0-4.0 ng/mL PSA, Normal DIAGNOSTIC 1.05 Result Comment: This test was performed using the TPSA assay method for the Transifex chemistry system. Values obtained with different assay methods cannot be used interchangably. When changing PSA assays in the course of monitoring a patient, additional sequential testing should be carried out to confirm baseline values. Performed By: #### L500.2500, L501.9940 #### [facility] [address] [place], [address] SURGERY VISIT REPORT Observed: 05/28/2018 Status: F Source: [place] 5:16 PM [facility] REPOSITORY [facility] [address] [place] [address] OFFICE VISIT Date of Service: 05/28/18 MR#: [id number] Acct: [id number] Name: FRANTZ DESAI Rep #: [id number] : 1945 Provider: Galen Levin MD Age/Sex: 72/M Location: [facility] Status: Signed Intake Intake Visit Reasons: F/U Rectal Bleeding seen 04/24 Chief Complaint: recheck rectal bleeding Change Release Manager Required: No Is patient in pain?: No Allergies Sulfa (Sulfonamide Antibiotics) Adverse Reaction (Verified 05/28/18 07:47) Unknown Medications Fluticasone Propionate [Allergy Relief] 15.8 ml NS DAILY 09/24/16 [History Confirmed 05/28/18] Rizatriptan Benzoate [Maxalt] 10 mg PO PRN PRN 09/24/16 [History Confirmed 05/28/18] Sertraline HCl [Zoloft] 50 mg PO DAILY 09/24/16 [History Confirmed 05/28/18] Simvastatin [Zocor] 20 mg PO QHS 09/24/16 [History Confirmed 05/28/18] Tamsulosin HCl [Flomax] 0.4 mg PO DAILY 09/24/16 [History Confirmed 05/28/18] Etodolac 400 mg PO DAILY 06/22/17 [History Confirmed 05/28/18] Aspirin [Aspirin, Baby] 81 mg PO DAILY@0800 02/04/18 [History Confirmed 05/28/18] Multivitamin [Daily Multiple Vitamin] 1 ea PO DAILY 02/04/18 [History Confirmed 05/28/18] Subjective Details: 72-year-old gentleman returns today. He has had problems with rectal bleeding. I performed a colonoscopy demonstrating hemorrhoids and possibly some radiation proctitis but biopsies did not confirm the radiation proctitis. He has had radiation treatment for prostate cancer. Despite being taken off the aspirin and not being on any anticoagulants he continues to have rectal bleeding bright red is noted on the stool. On a couple occasions he has noted it without defecation and is been present on his undergarments. This point he would like to attempt a definitive treatment MR#:[id number]:[id number] Name: FRANTZ DESAI HRep #:[id number] : 1945 Provider:Galen Levin MD Age/Sex: 72/M Location:[facility] Status:Signed Intake Intake Visit Reasons: Rectal Bleeding - Self Ref Chief Complaint: rectal bleeding/ c-scope Change Release Manager Required: No Is patient in pain?: No Allergies Sulfa (Sulfonamide Antibiotics) Adverse Reaction (Verified 04/24/18 07:37) Unknown Medications Fluticasone Propionate [Allergy Relief] 15.8 ml NS DAILY 09/24/16 [History Confirmed 02/04/18] Rizatriptan Benzoate [Maxalt] 10 mg PO PRN PRN 09/24/16 [History Confirmed 02/04/18] Sertraline HCl [Zoloft] 50 mg PO DAILY 09/24/16 [History Confirmed 02/04/18] Simvastatin [Zocor] 20 mg PO QHS 09/24/16 [History Confirmed 02/04/18] Tamsulosin HCl [Flomax] 0.4 mg PO DAILY 09/24/16 [History Confirmed 02/04/18] Etodolac 400 mg PO DAILY 06/22/17 [History Confirmed 02/04/18] Aspirin [Aspirin, Baby] 81 mg PO DAILY@0800 02/04/18 [History Confirmed 02/04/18] Multivitamin [Daily Multiple Vitamin] 1 ea PO DAILY 02/04/18 [History Confirmed 02/04/18] [facility] Medical History Rectal bleeding (Acute) Environmental allergies (Acute) Hyperlipidemia (Acute) Prostate cancer (Acute) HTN (hypertension) (Chronic) Surgical History History of colonoscopy (Acute 01/2018) H/O colonoscopy (Acute) History of partial colectomy (Acute) S/P inguinal hernia repair (Acute) S/P right knee arthroscopy (Acute) Family History Brother Cancer prostate Social History Smoking Status: Former smoker alcohol intake: never HPI HPI HPI: FRANTZ DESAI, is a 72 M who presents to the office today for ongoing surgical follow-up because of rectal bleeding. The patient has had a history of prostate cancer with radiation treatment. He presented with rectal bleeding. I performed a colonoscopy on him on February 04, 2018. Rectal biopsies were negative for radiation proctitis. The patient returns today complaining of ongoing almost daily painless rectal bleeding. [facility] Medical Records Department [address] [place] [address] Operative Report 02/04/18 0949 MR#: [id number]:[id number] Name: FRANTZ DESAI [facility] #:[id number] : [id number]: Galen Levin MD PCP:Warner Overton MD Status:REG [facility] Location: [place] [address] Problem List (1) Radiation proctitis Status: Acute Report of Operation Date of Procedure: 02/04/18 Pre-Operative Diagnosis: Radiation proctitis, acute change of bowel habits, rectal bleeding Post-Operative Diagnosis: Patent colorectal anastomosis, mild radiation proctitis Surgery/Procedure Performed:: Colonoscopy with cold forcep rectal biopsies Description of Surgical Findings:: Timeout and informed consent was obtained. 72-year-old gent was taken to the endoscopy suite. He was placed in the left lateral decubitus position. Throughout the procedure total 100 mg Remeron 3.5 mg of Versed were given as intravenous sedation. Digital rectal exam performed. Mild hemorrhoidal changes. 3+ enlarged smooth prostate. No mass lesions. Flexible colonoscope inserted the rectum advanced quite readily through the left and transverse colon. The patient required being placed supine with transabdominal pressure to get the scope to go to the cecum. The cecum ileocecal valve area was nicely achieved. Bowel prep was good. The scope was carefully withdrawn from the cecum ascending colon transverse colon and descending colon without acute abnormality. Scattered diverticulosis noted on the left. Patent low colorectal anastomosis was identified. There was some mild erythema of the rectum consistent with proctitis. Cold forcep biopsies were obtained. Excess fluid and air was aspirated free the procedure was completed with the patient tolerating it well. Impression No evidence for radiation-induced stricturing. The rectal mucosa though erythematous quite distally still has normal texture. Final pathology is pending. Previous colonoscopy was November 27, 2016. Next screening colonoscopy recommended in 10 years. The patient will be notified of pathology results as they become available. There are no signs of obstruction or stricturing. Mild erythema of the very distal rectum noted. Cc: Dr. Warner Overton Medications were given in 09. The [place] 0931[place] [address]. The procedure was completed at 1042 Galen Levin M.D., F.A.C.S. Type of Anesthesia:: IV Sedation 02/04/18 0952<Electronically signed by Galen Levin MD> Date Galen Levin MD CC: Warner Overton MD; Galen Levin MD Signed Exam GI Other: External anus appears to be clean. Minimal hemorrhoidal findings. On digital exam he has some moderate internal hemorrhoids. Nontender. 3+ enlarged prostate. No active bleeding. Assessment AND Plan Problems 1. Rectal bleeding K62.5 Plan Upon further discussing features with him it has become apparent that he is taking a daily aspirin. He claims that he recently injured his right ear with a small scrape that then bled profusely. He has not had any documented heart disease. He has not had any documented colon polyps. No family history of colon cancer. He has not been prescribed the aspirin but has been taking it on his own account. With that in mind I have asked him to cease his aspirin at this time. He is to give me a phone call contact in 3 weeks with an assessment as to whether his breathing is any better. If he is still having bleeding then I would consider a examination under anesthesia with anticipated internal hemorrhoidectomy with a sutured approach. Because of his previous rectal radiation I would not risk hemorrhoidal banding or stapling. I believe that he would have the best chance of healing with a surgical hemorrhoidectomy. The majority of his hemorrhoids are internal. Is of additional note that the patient was questioning whether this could be diverticular bleeding. I do not believe that his clinical presentation is consistent with that. Galen Levin M.D., Pavithra.CNaveenS. Coding Level of Care Code Off vis,est,level 2 Diagnoses Rectal bleeding K62.5 04/24/18 0759<Electronically signed by Galen Levin MD> Date Galen Levin MD Objective Details: Patient is alert no acute distress Chest: Clear to auscultation with good effort Cardiac exam regular rate and rhythm Abdomen is soft, nontender, no gross hepatosplenomegaly Calves are supple nontender Neurologic exam grossly intact Assessment AND Plan Plan I am recommending to the patient examination under anesthesia believe this could be accomplished under monitored anesthesia care and local anesthetic I anticipate a surgical hemorrhoidectomy I anticipate the possible use of argon beam to treat radiation proctitis. He is aware of technique, benefits, risks and alternatives. We will proceed at his discretion. Galen Levin M.D., F.A.C.S. Coding Level of Care Code Off vis,est,level 2 05/28/18 1716 <Electronically signed by Galen Levin MD> Date Galen Levin MD Cosigner Signature: Date (if applicable) CC: Observed: 05/22/2018 Status: F Source: [place] CULTURE, URINE 10:45 AM [facility] REPOSITORY Urine Culture Culture exhibits no growth. Performed By: #### M100.0650 #### [facility] [address] [place], [address] SURGERY VISIT REPORT Observed: 04/24/2018 Status: F Source: [place] 7:59 AM [facility] REPOSITORY [facility] [address] [place] [address] OFFICE VISIT Date of Service: 04/24/18 MR#: [id number] Acct: [id number] Name: FRANTZ DESAI Rep #: [id number] : 1945 Provider: Galen Levin MD Age/Sex: 72/M Location: [facility] Status: Signed Intake Intake Visit Reasons: Rectal Bleeding - Self Ref Chief Complaint: rectal bleeding/ c-scope Change Release Manager Required: No Is patient in pain?: No Allergies Sulfa (Sulfonamide Antibiotics) Adverse Reaction (Verified 04/24/18 07:37) Unknown Medications Fluticasone Propionate [Allergy Relief] 15.8 ml NS DAILY 09/24/16 [History Confirmed 02/04/18] Rizatriptan Benzoate [Maxalt] 10 mg PO PRN PRN 09/24/16 [History Confirmed 02/04/18] Sertraline HCl [Zoloft] 50 mg PO DAILY 09/24/16 [History Confirmed 02/04/18] Simvastatin [Zocor] 20 mg PO QHS 09/24/16 [History Confirmed 02/04/18] Tamsulosin HCl [Flomax] 0.4 mg PO DAILY 09/24/16 [History Confirmed 02/04/18] Etodolac 400 mg PO DAILY 06/22/17 [History Confirmed 02/04/18] Aspirin [Aspirin, Baby] 81 mg PO DAILY@0800 02/04/18 [History Confirmed 02/04/18] Multivitamin [Daily Multiple Vitamin] 1 ea PO DAILY 02/04/18 [History Confirmed 02/04/18] [facility] Medical History Rectal bleeding (Acute) Environmental allergies (Acute) Hyperlipidemia (Acute) Prostate cancer (Acute) HTN (hypertension) (Chronic) Surgical History History of colonoscopy (Acute 01/2018) H/O colonoscopy (Acute) History of partial colectomy (Acute) S/P inguinal hernia repair (Acute) S/P right knee arthroscopy (Acute) Family History Brother Cancer prostate Social History Smoking Status: Former smoker alcohol intake: never HPI HPI HPI: FRANTZ DESAI, is a 72 M who presents to the office today for ongoing surgical follow-up because of rectal bleeding. The patient has had a history of prostate cancer with radiation treatment. He presented with rectal bleeding. I performed a colonoscopy on him on February 04, 2018. Rectal biopsies were negative for radiation proctitis. The patient returns today complaining of ongoing almost daily painless rectal bleeding. [facility] Medical Records Department [address] [place] [address] Operative Report 02/04/18 0949 MR#: [id number] Name: FRANTZ DESAI [facility] #:[id number] : [id number]: Galen Levin MD PCP:Warner Overton MD Status:REG [facility] Location: [id number] Problem List (1) Radiation proctitis Status: Acute Report of Operation Date of Procedure: 02/04/18 Pre-Operative Diagnosis: Radiation proctitis, acute change of bowel habits, rectal bleeding Post-Operative Diagnosis: Patent colorectal anastomosis, mild radiation proctitis Surgery/Procedure Performed:: Colonoscopy with cold forcep rectal biopsies Description of Surgical Findings:: Timeout and informed consent was obtained. 72-year-old gent was taken to the endoscopy suite. He was placed in the left lateral decubitus position. Throughout the procedure total 100 mg Remeron 3.5 mg of Versed were given as intravenous sedation. Digital rectal exam performed. Mild hemorrhoidal changes. 3+ enlarged smooth prostate. No mass lesions. Flexible colonoscope inserted the rectum advanced quite readily through the left and transverse colon. The patient required being placed supine with transabdominal pressure to get the scope to go to the cecum. The cecum ileocecal valve area was nicely achieved. Bowel prep was good. The scope was carefully withdrawn from the cecum ascending colon transverse colon and descending colon without acute abnormality. Scattered diverticulosis noted on the left. Patent low colorectal anastomosis was identified. There was some mild erythema of the rectum consistent with proctitis. Cold forcep biopsies were obtained. Excess fluid and air was aspirated free the procedure was completed with the patient tolerating it well. Impression No evidence for radiation-induced stricturing. The rectal mucosa though erythematous quite distally still has normal texture. Final pathology is pending. Previous colonoscopy was November 27, 2016. Next screening colonoscopy recommended in 10 years. The patient will be notified of pathology results as they become available. There are no signs of obstruction or stricturing. Mild erythema of the very distal rectum noted. Cc: Dr. Warner Overton Medications were given in 927. The scope was inserted 930. [place] [address]. The procedure was completed at 1042 Galen Levin M.D., F.A.C.S. Type of Anesthesia:: IV Sedation 02/04/18 0952<Electronically signed by Galen Levin MD> Date Galen Levin MD CC: Warner Overton MD; Galen Levin MD Signed Exam GI Other: External anus appears to be clean. Minimal hemorrhoidal findings. On digital exam he has some moderate internal hemorrhoids. Nontender. 3+ enlarged prostate. No active bleeding. Assessment AND Plan Problems 1. Rectal bleeding K62.5 Plan Upon further discussing features with him it has become apparent that he is taking a daily aspirin. He claims that he recently injured his right ear with a small scrape that then bled profusely. He has not had any documented heart disease. He has not had any documented colon polyps. No family history of colon cancer. He has not been prescribed the aspirin but has been taking it on his own account. With that in mind I have asked him to cease his aspirin at this time. He is to give me a phone call contact in 3 weeks with an assessment as to whether his breathing is any better. If he is still having bleeding then I would consider a examination under anesthesia with anticipated internal hemorrhoidectomy with a sutured approach. Because of his previous rectal radiation I would not risk hemorrhoidal banding or stapling. I believe that he would have the best chance of healing with a surgical hemorrhoidectomy. The majority of his hemorrhoids are internal. Is of additional note that the patient was questioning whether this could be diverticular bleeding. I do not believe that his clinical presentation is consistent with that. Galen Levin M.D., F.A.C.S. Coding Level of Care Code Off vis,est,level 2 Diagnoses Rectal bleeding K62.5 04/24/18 0759 <Electronically signed by Galen Levin MD> Date Galen Levin MD Cosigner Signature: Date (if applicable) CC: Warner Overton MD PROGRESS Observed: 02/09/2018 Status: COMPLETED Source: [place] 12:[address] [facility] REPOSITORY HNO ID: [id number] Author: Bridgette (Paralegal Supervisor) Older Service: (none) Author Type: Nurse Practitioner Type: Progress Notes Filed: 02/09/2018 1:28 PM Note Text: CC: Patient presents with: left ear pain: x 10 days HPI: Frantz Desai is a 72 year old male who presents to the office with complaint of left ear pain for 10 days. Also reports pain in left maxillary sinus and left jaw. Patient states he had left salivary gland removed two weeks ago. History of sinus infection one month ago requiring treatment with two different antibiotics. Denies fever, chills, muffled hearing, drainage from ear. Surgical site left neck appears normal to patient. Denies swelling or pain inside mouth or purulent drainage. Is able to fully open and close mouth but does cause some discomfort. Treatments tried include Claritin daily with minor relief of symptoms. Smoker: No Seasonal/environmental allergies: Yes The ROS is otherwise negative. The patient's pmh, medications, allergies, and past visits are reviewed. PHYSICAL EXAM: BP 142/84 Pulse 68 Temp 36.7 ?C (98.1 ?F) (Right Tympanic) Resp 16 Wt 77.9 kg (171 lb 12.8 oz) SpO2 98% BMI 28.15 kg/m? General appearance: healthy, alert, cooperative, pleasant, in no acute distress Head: Normocephalic Eyes: conjunctiva pink and moist, no icterus, sclera white, non-injected Ears: Right ear: External ear/canal- Normal, TM - clear with good landmarks. Left ear: External ear/canal- Normal, TM - clear with good landmarks Nose: sinus tenderness over maxillary sinuses left. Oropharynx:moist without lesions, No erythema, exudates or tonsillar hypertrophy., oral mucosa normal. Incision left neck well approximated without redness, drainage, induration, fluctuance. Neck:supple and no adenopathy Heart: Negative. RRR without obvious murmur, gallop, or rubs. No ectopy. Lungs: clear to auscultation, without rales or wheeze, good air exchange ASSESSMENT/PLAN: 1. Left ear pain - ICD9: 388.70, ICD10: H92.02 Possible eustachian tube dysfunction Secondary to recent sinus infection vs left salivary gland removal No evidence of surgical infection or otitis media. No alarm symptoms or exam findings. Discussed analgesics for pain relief including NSAID's and Tylenol Follow-up with surgeon on Saturday if no relief or to ER for acutely worsening symptoms Prescription instructions reviewed with patient as applicable. Potential red flag symptoms discussed with the patient. Reviewed appropriate action plan to take if red flag symptoms occur. Patient agreeable to treatment plan. LUIS McleodOV Observed: 02/09/2018 Status: COMPLETED Source: [place] 12:00 PM [facility] REPOSITORY Office Visit ([facility]) FRANTZ DESAI ([id number]) 1945 M Date Time Provider Department 02/09/18 12:00 PM BRIDGETTE SONI) [facility] During your visit today, we recorded the following information about you: Temperature Pulse Respiration Blood pressure 98.1 degrees 68/minute 16/minute 142/84 Weight 77.9 kg Bridgette Soni APRN.[employer] TECHNICIAN 02/09/2018 1:28 PM Signed CC: Patient presents with: left ear pain: x 10 days HPI: Frantz Desai is a 72 year old male who presents to the office with complaint of left ear pain for 10 days. Also reports pain in left maxillary sinus and left jaw. Patient states he had left salivary gland removed two weeks ago. History of sinus infection one month ago requiring treatment with two different antibiotics. Denies fever, chills, muffled hearing, drainage from ear. Surgical site left neck appears normal to patient. Denies swelling or pain inside mouth or purulent drainage. Is able to fully open and close mouth but does cause some discomfort. Treatments tried include Claritin daily with minor relief of symptoms. Smoker: No Seasonal/environmental allergies: Yes The ROS is otherwise negative. The patient's pmh, medications, allergies, and past visits are reviewed. PHYSICAL EXAM: BP 142/84 Pulse 68 Temp 36.7 ?C (98.1 ?F) (Right Tympanic) Resp 16 Wt 77.9 kg (171 lb 12.8 oz) SpO2 98% BMI 28.15 kg/m? General appearance: healthy, alert, cooperative, pleasant, in no acute distress Head: Normocephalic Eyes: conjunctiva pink and moist, no icterus, sclera white, non-injected Ears: Right ear: External ear/canal- Normal, TM - clear with good landmarks. Left ear: External ear/canal- Normal, TM - clear with good landmarks Nose: sinus tenderness over maxillary sinuses left. Oropharynx:moist without lesions, No erythema, exudates or tonsillar hypertrophy., oral mucosa normal. Incision left neck well approximated without redness, drainage, induration, fluctuance. Neck:supple and no adenopathy Heart: Negative. RRR without obvious murmur, gallop, or rubs. No ectopy. Lungs: clear to auscultation, without rales or wheeze, good air exchange ASSESSMENT/PLAN: 1. Left ear pain - ICD9: 388.70, ICD10: H92.02 Possible eustachian tube dysfunction Secondary to recent sinus infection vs left salivary gland removal No evidence of surgical infection or otitis media. No alarm symptoms or exam findings. Discussed analgesics for pain relief including NSAID's and Tylenol Follow-up with surgeon on [place] if no relief or to ER for acutely worsening symptoms Prescription instructions reviewed with patient as applicable. Potential red flag symptoms discussed with the patient. Reviewed appropriate action plan to take if red flag symptoms occur. Patient agreeable to treatment plan. Bridgette Soni APRN.[employer] TECHNICIAN Referring Provider: SELF [[id number]] Allergies As of Date: 02/09/2018 Noted Allergy Reaction NUT - UNSPECIFIED 07/06/2009 10 - Anaphylaxis Comments: headache SULFA (SULFONAMIDE ANTIBIOTICS) 04/16/2005 2 - Rash ALCOHOL 07/06/2009 14 - Other: See Comments Comments: headache CHOCOLATE 07/06/2009 14 - Other: See Comments Comments: headaches Date Reviewed: 02/09/2018 Reviewed by: Gali Montesinos Ma - Fully Assessed Reason for Visit: left ear pain [Other] Cmt: x 10 days Primary Visit Diagnosis:Left ear pain [H92.02] Prescriptions as of 02/09/2018 Sig: BROMPHENIRAMINE-PSEUDOEPHEDRI* Take 5-10 ml po q6h prn TAMSULOSIN 0.4 MG CAPSULE Take 1 capsule by mouth once * SIMVASTATIN 20 MG TABLET Take 1 tablet by mouth daily * FLUTICASONE 50 MCG/ACTUATION * Use 1 [place] in each nostril o* RIZATRIPTAN 10 MG TABLET TAKE 1 TABLET AT ONSET OF HEA* SERTRALINE 50 MG TABLET TAKE ONE AND ONE-HALF TABLETS* ETODOLAC 400 MG TABLET Take 1 tablet by mouth once d* MULTIVITAMIN TABLET Take one(1) tablet daily. ADULT LOW DOSE ASPIRIN 81 MG * Take one(1) tablet daily. Problem List As Of Date 02/09/2018 Noted Resolved Osteoarthrosis, unspecified whether generalized*INVALID FOR* Priority: M Mixed hyperlipidemia [E78.2] INVALID FOR* Priority: A DISC DEGENERATION NOS [DPV7297] INVALID FOR* Priority: M Cough [R05] INVALID FOR*07/06/2009 More... More... Colon polyps [K63.5] INVALID FOR* Priority: C More... Spinal stenosis, lumbar [M48.061] INVALID FOR* Priority: M Melanoma [C43.9] INVALID FOR* Priority: A More... Impaired fasting glucose [R73.01] INVALID FOR* Priority: A Family history of prostate cancer [Z80.42] INVALID FOR* Priority: F Prostate cancer (HCC) [C61] INVALID FOR* Priority: C More... Well adult exam [Z00.00] INVALID FOR* Priority: E More... Irritable bowel syndrome without diarrhea [K58.*INVALID FOR* Priority: C Allergic rhinitis [J30.9] INVALID FOR* Priority: B Benign non-nodular prostatic hyperplasia withou*INVALID FOR* Priority: C Cluster headache, not intractable [G44.009] INVALID FOR* Priority: A More... Generalized anxiety disorder [F41.1] INVALID FOR* Priority: A Hiatal hernia [K44.9] INVALID FOR* Priority: A GERD with esophagitis [K21.0] INVALID FOR* Priority: A Medicare annual wellness visit, subsequent [Z00*INVALID FOR* Priority: E More... Encounter Status:Closed by BRIDGETTE SONI CNP on 02/09/18 OPERATIVE REPORT Observed: 02/04/2018 Status: F Source: [place] 9:52 AM [facility] REPOSITORY [facility] Medical Records Department [address] [place] [address] Operative Report 02/04/18 0949 MR#: [id number] Acct: [id number] Name: FRANTZ DESAI Rep #: [id number] : 1945 72 From: Galen Levin MD PCP: Warner Overton MD Status: REG [facility] Location: [place] [address] Problem List (1) Radiation proctitis Status: Acute Report of Operation Date of Procedure: 02/04/18 Pre-Operative Diagnosis: Radiation proctitis, acute change of bowel habits, rectal bleeding Post-Operative Diagnosis: Patent colorectal anastomosis, mild radiation proctitis Surgery/Procedure Performed:: Colonoscopy with cold forcep rectal biopsies Description of Surgical Findings:: Timeout and informed consent was obtained. 72-year-old gent was taken to the endoscopy suite. He was placed in the left lateral decubitus position. Throughout the procedure total 100 mg Remeron 3.5 mg of Versed were given as intravenous sedation. Digital rectal exam performed. Mild hemorrhoidal changes. 3+ enlarged smooth prostate. No mass lesions. Flexible colonoscope inserted the rectum advanced quite readily through the left and transverse colon. The patient required being placed supine with transabdominal pressure to get the scope to go to the cecum. The cecum ileocecal valve area was nicely achieved. Bowel prep was good. The scope was carefully withdrawn from the cecum ascending colon transverse colon and descending colon without acute abnormality. Scattered diverticulosis noted on the left. Patent low colorectal anastomosis was identified. There was some mild erythema of the rectum consistent with proctitis. Cold forcep biopsies were obtained. Excess fluid and air was aspirated free the procedure was completed with the patient tolerating it well. Impression No evidence for radiation-induced stricturing. The rectal mucosa though erythematous quite distally still has normal texture. Final pathology is pending. Previous colonoscopy was November 27, 2016. Next screening colonoscopy recommended in 10 years. The patient will be notified of pathology results as they become available. There are no signs of obstruction or stricturing. Mild erythema of the very distal rectum noted. Cc: Dr. Warner Overton Medications were given in 927. The scope was [place] 0931. [place] [address]. The procedure was completed at 1042 Galen Levin M.D., F.A.C.S. Type of Anesthesia:: IV Sedation 02/04/18951 <Electronically signed by Galen eLvin MD> Date Galen Levin MD CC: Warner Overton MD; Galen Levin MD Signed COLON BIOPSY (CHOOSE Observed: 02/04/2018 Status: F Source: [facility]) 9:30 AM [facility] REPOS[facility] Patient: FRANTZ DESAI : 1945 (72/M) Acct Num: [id number] Phys: Poonam BUCKLEY,Galen Unit Num: [id number] Loc: EN Specimen: [id number] Received: 02/04/1859 Spec Type: COLON BX TISSUES TISSUES: Rectum, NOS GROSS DESCRIPTION Received in fixative is one container labeled with the patient's name and designated rectal biopsy. The specimen consists of two irregular fragments of light etienne soft tissue that in aggregate measure 0.5 x 0.3 x 0.1 cm. The specimen is totally submitted in one cassette. / AM:rg 02/04/18 TC:5 CPT: 42966 HEADER OPERATION: Colonoscopy (MOD) PRE-OP DIAGNOSIS: Radiation proctitis, change in bowel habits TISSUE SUBMITTED: Rectal biopsy MICROSCOPIC DESCRIPTION Slides are reviewed. MICROSCOPIC DIAGNOSIS Rectum, biopsy: No significant pathologic change. No evidence of colitis. AM:davi 02/05/18 Signed David Duran 02/05/18 <signature on file> Performed By: #### PCOLBX #### [facility] [address] [place], [address] SUBMANDIBULAR GL Observed: 01/28/2018 Status: F Source: [place] 11:51 AM [facility] REPOSITORY Patient: FRANTZ DESAI : 1945 (72/M) Acct Num: [id number] Phys: [place] Unit Num: [id number] Loc: LABSPEC Specimen: [id number] Received: 01/28/18 - 163 Spec Type: SUBMAN GL TISSUES TISSUES: Salivary gland, NOS GROSS DESCRIPTION Received is one container labeled with the patient's name and not further designated. The specimen consists of two pieces of irregular glandular tissue weighing in aggregate 12.8 gm and measuring 4 x 2.5 x 2 cm and 3.5 x 2 x 1 cm. Both pieces are inked black. Sections do not reveal any mass lesion. The entire specimen is submitted in nine cassettes as follows: 1 AND 2 smaller piece of tissue, 3-9 larger piece of tissue from one end to another end. / LEIF :davi 01/29/18 TC:3 CPT: 61760 HEADER OPERATION: Excision left submandibular gland PRE-OP DIAGNOSIS: Chronic sialoadenitis TISSUE SUBMITTED: Left submandibular gland MICROSCOPIC DESCRIPTION Slides are reviewed. MICROSCOPIC DIAGNOSIS Left submandibular gland, excision: Major salivary gland tissue with focal mild chronic inflammation. SJ:davi 01/30/18 Signed Silvano Soler 01/30/18 <signature on file> Performed By: #### PSUBM #### [facility] [address] [place], [address] 12 LEAD ELECTROCARDIOGRAM Observed: 01/24/2018 Status: F Source: [place] 1:53 PM [facility] REPOSITORY [facility] Cardiovascular Services [address] [place] [address] 12 Lead EKG 01/23/18 0902 MR#: [id number] Acct: [id number] Name: FRANTZ DESAI Rep #: [id number] : 1945 72 From: Silverio Stovall MD Attending Dr: Benigno Alvarez MD Status: REG CLI Ordering Dr: Carlos Alvarez MD Date: 01/23/18 Location: LAB Sex: M C Admitted: Test Reason : PRE OP Blood Pressure : / mmHG Vent. Rate : 056 BPM Atrial Rate : 056 BPM P-R Int : 168 ms QRS Dur : 082 ms QT Int : 414 ms P-R-T Axes : 058 013 033 degrees QTc Int : 399 ms Sinus bradycardia Otherwise normal ECG Confirmed by MARGARITA BUCKLEY, SILVERIO ([id number]), editorial intern CARMEN MACIAS ([id number]) on 01/24/2018 1:52:39 PM Referred By: Aleksandr Alvarez Confirmed By:SILVERIO STOVALL MD 01/24/18 1352 Date Silverio Stovall MD CC: Benigno Alvarez MD; Warner Overton MD Signed CBC-COMPLETE BLOOD CNT Collected: 01/23/2018 Status: F Source: [place] NO DIFF 8:50 AM [facility] REPOSITORY TYPE CODE TESTS RESULT OUT OF RANGE REFERENCE UNITS LAB L100.1000 4.4-11.0 K/mm3 Low WBC 4.1 LAB L100.1200 4.6-6.2 M/mm3 Normal RBC 4.72 LAB L100.1300 13.0-16.5 g/dl Normal HGB 14.1 LAB L100.1400 40-54 % Normal HCT 42.2 LAB L100.1500 80-94 fL Normal MCV 89.4 LAB L100.1600 27.0-32.0 pg Normal MCH 29.9 LAB L100.1700 32-36 g/gl Normal MCHC 33.4 LAB L100.1810 11.6-14.6 % Normal RDW CV 14.2 LAB L100.1820 35.1-43.9 fl High RDW SD 46.2 LAB L100.1900 150-450 K/mm3 Normal PLT 197 LAB L100.2000 6.2-12.0 fl Normal MPV 9.4 Performed By: #### L100.0500 #### [facility] [address] [place], [address] BASIC METABOLIC Collected: 01/23/2018 Status: F Source: [place] PROFILE (BMP) 8:50 AM [facility] REPOSITORY TYPE CODE TESTS RESULT OUT OF RANGE REFERENCE UNITS LAB L501.0100 74-106 mg/dL Normal GLU 106 Result Comment: Fasting Glucose result from 100 to 125 mg/dL suggests IMPAIRED HOMEOSTASIS per A.D.A. criteria. Please note revised GLUCOSE reference range effective 2017. LAB L501.1000 7-18 mg/dL Normal BUN 17 LAB L501.1100 0.70-1.30 mg/dL Normal CREAT,SERUM 0.87 Result Comment: The validity of the calculated GFR AND GFRAA in patients over 70 years has not been determined. Clinical correlation is essential. LAB L501.1110 >60 mL/min Normal EST GFR 91 Result Comment: Non- GFR Calc LAB L501.1115 >60 mL/min Normal EST GFR - AA 110 Result Comment: GFR Calc LAB L501.1300 10-20 RATIO Normal BUN/CRE 19.5 LAB L501.2200 8.5-10.1 mg/dL CA Normal 8.7 LAB L501.5300 136-145 mmol/L NA Normal 142 LAB L501.5600 3.5-5.1 mmol/L K Normal 4.0 LAB L501.5900 98-107 mmol/L CL Normal 107 LAB L501.6100 21.0-32.0 mmol/L Normal CO2 31.0 LAB L501.6200 5-15 Low GAP 4 Performed By: #### L500.2500 #### [facility] [address] [place], [address] SURGERY VISIT REPORT Observed: 01/17/2018 Status: F Source: [place] 3:35 PM [facility] REPOSITORY [facility] [address] [place] [address] OFFICE VISIT Date of Service: 01/17/18 MR#: [id number] Acct: [id number] Name: FRANTZ DESAI Rep #: [id number] : 1945 Provider: Galen Levin MD Age/Sex: 72/M Location: [facility] Status: Signed Intake Vital Signs01/17/18 Height 5 ft 6 in 01/17/18 Weight: 170 lb 01/17/18 Body Mass Index (BMI) 27.4 Intake Visit Reasons: change in bowel habits Change Release Manager Required: No Is patient in pain?: No Allergies Sulfa (Sulfonamide Antibiotics) Adverse Reaction (Verified 01/17/18 15:18) Unknown Medications Fluticasone Propionate [Allergy Relief] 15.8 ml NS DAILY 09/24/16 [History Confirmed 01/17/18] Rizatriptan Benzoate [Maxalt] 10 mg PO PRN PRN 09/24/16 [History Confirmed 01/17/18] Sertraline HCl [Zoloft] 50 mg PO DAILY 09/24/16 [History Confirmed 01/17/18] Simvastatin [Zocor] 20 mg PO QHS 09/24/16 [History Confirmed 01/17/18] Tamsulosin HCl [Flomax] 0.4 mg PO DAILY 09/24/16 [History Confirmed 01/17/18] Etodolac 400 mg PO DAILY 06/22/17 [History Confirmed 01/17/18] pediatric multivitamin no.28 chewable tablet tab PO 01/17/18 [History Confirmed 01/17/18] PFSH Medical History Environmental allergies (Acute) Hyperlipidemia (Acute) Prostate cancer (Acute) HTN (hypertension) (Chronic) Surgical History H/O colonoscopy (Acute) History of partial colectomy (Acute) S/P inguinal hernia repair (Acute) S/P right knee arthroscopy (Acute) Family History Brother Cancer prostate Social History Smoking Status: Former smoker alcohol intake: never HPI HPI HPI: FRANTZ DESAI, is a 72 M who presents to the office today for surgical consultation regarding change of bowel habits. The patient is referred by his neurologist .. March 12, 2013 I performed a sigmoid colectomy and incidental appendectomy for him because of recurrent sigmoid diverticulitis. Since that time he is always had more urgent stools but very controllable. His most recent colonoscopy was performed by myself as an outpatient at the [facility] was drawn November 27, 2016. The anastomosis that point was so widely patent that I did not even comment about it. There was a small rectal polyp which on biopsy was hyperplastic. In the interim the patient has been diagnosed with prostate cancer. He has had 43 radiation treatments. Initially he had diarrhea. Radiation has completed and now he has had a distinct change in his bowel habits. Now he produces only small hard marbles and occasional slender string size stool. There is concerned that he may have radiation proctitis or radiation stricturing. This may have affected the long-term anastomosis. ROS General General: No weight change, appetite, fatigue, colon cancer, breast cancer or weakness HEENT HEENT: No difficulty swallowing, eye injury, eye surgery, swollen glands or hoarseness Endo Endocrine: No thyroid disease, diabetes mellitus, thyroid cancer, Hair loss, heat intolerance or cold intolerance Skin Skin: No rash or changing moles Breast Breast: No left breast lump, right breast lump, nipple discharge, breast pain, abnormal mammogram, abnormal US or breast enlargement Musc Musculoskeletal: Yes back problems and arthritis; no rheumatoid arthritis, gout or joint pain Cardio Cardiovascular: No murmur, pacemaker, heart disease, atrial fibrillation, high blood pressure, heart attack, heart stent, palpitations, shortness of breat with exertion or chest pain Psych Psychiatric: Yes anxiety; no depression or hearing voices Resp Respiratory: No shortness of breath, No sleep apnea, No cough, No COPD, No asthma, No emphysema, No wheezing Gastro Gastrointestinal: Yes constipation, Yes acid reflux, No abdominal pain, No nausea or vomiting, No diarrhea, No blood in stool, No hemorrhoids, No ulcers, No gallbladder problem, No black,tarry stools Fredo Hematologic: Yes blood thinners, No blood disorders, No bleeding, No anemia, No blood clots Neuro Neurologic: No system reviewed and no additional complaints, except as docu, No as per HPI, No abnormal walking, No abnormal hearing, No abnormal movements, No abnormal speech, No behavioral changes, No burning sensations, No confusion, No seizure-like activity, No unsteadiness, No dizziness, No localized weakness, No frequent falls, No headache(s), No lack of coordination, No loss of vision, No memory loss, No numbness, No other visual disturbances, No radiating pain, No restless legs, No sensory deficit, No fainting, No tingling, No tremor(s), No weakness, No other Exam Const General: cooperative, healthy appearing, comfortable Nutritional Appearance: average body habitus HENMT Head: normal to inspection Eyes General: appearance normal, both eyes and all related structures Chest Breast Palpation: No nipple discharge Resp Effort AND Inspection: normal respiratory effort Auscultation: clear to auscultation bilaterally Cardio Rate: regular rate Rhythm: regular rhythm Heart Sounds: no murmurs GI Palpation: soft, no hepatosplenomegaly Skin General: no rashes or lesions noted Neuro Cranial Nerves: CN's II-XI intact bilaterally Extrem General: no clubbing, cyanosis or edema Psych Affect: normal affect Assessment AND Plan Problems 1. 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 Of even more concern is that he might have stricturing of his long-term colorectal anastomosis. I do not otherwise have etiologic reason for the significant bowel habit change with now much diminutive stool. I do propose for him a colonoscopy. I would anticipate very careful inspection of the left colon and rectal area with biopsies as needed. The patient has had a previous right-sided colon polyp albeit benign. He has had an opportunity to ask and have questions answered. We will schedule and proceed at his discretion. I appreciate the opportunity to continue to assist with his surgical care. Cc: Dr. Warner Overton and Dr Lennie Levin M.D., F.A.C.S. 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 Time Spent (min) 01/17/18 7267 <Electronically signed by Galen Levin MD> Date Galen Levin MD [facility] Signature: Date (if applicable) CC: Warner Overton MD; Slade Reid MD [facility] Observed: 01/10/2018 Status: COMPLETED Source: [place] 12:00 AM [facility] REPOSITORY Telephone ([facility]) FRANTZ DESAI ([id number]) 1945 M Date Time Provider Department 01/10/18 SHAE GONG) [facility] During your visit today, we recorded the following information about you: Freda Madrigal Psr 01/10/2018 9:47 AM Signed Left message for patient to call back to schedule Colon Consult with Shae Gong.Freda Madrigal Psr Karli Snell 01/13/2018 9:17 AM Signed Patient wants to have colonoscopy done by Dr. Levin at [facility] Karli Overton MD 01/13/2018 6:58 PM Signed Why was patient called. Had colonoscopy 11/2016 and not due for repeat till 2026? Karli Snell 01/16/2018 1:15 PM Signed Im not sure as to why the patient was called for a colonoscopy consultation. It was sent [facility] to the [facility] Surgical Scheduling pool and I proceeded to contact the patient Karli Overton MD 01/16/2018 4:53 PM Signed Ok thanks Allergies As of Date: 01/10/2018 Noted Allergy Reaction NUT - UNSPECIFIED 07/06/2009 10 - Anaphylaxis Comments: headache SULFA (SULFONAMIDE ANTIBIOTICS) 04/16/2005 2 - Rash ALCOHOL 07/06/2009 14 - Other: See Comments Comments: headache CHOCOLATE 07/06/2009 14 - Other: See Comments Comments: headaches Date Reviewed: 01/08/2018 Reviewed by: Mitzi GiraldoDanvers State HospitalSridhar Hitchcock - Fully Assessed Reason for Visit: LMTCB [1226] Prescriptions as of 01/10/2018 Sig: DOXYCYCLINE MONOHYDRATE 100 M* Take 1 capsule by mouth twice* BROMPHENIRAMINE-PSEUDOEPHEDRI* Take 5-10 ml po q6h prn TAMSULOSIN 0.4 MG CAPSULE Take 1 capsule by mouth once * SIMVASTATIN 20 MG TABLET Take 1 tablet by mouth daily * FLUTICASONE 50 MCG/ACTUATION * Use 1 [place] in each nostril o* RIZATRIPTAN 10 MG TABLET TAKE 1 TABLET AT ONSET OF HEA* SERTRALINE 50 MG TABLET TAKE ONE AND ONE-HALF TABLETS* ETODOLAC 400 MG TABLET Take 1 tablet by mouth once d* MULTIVITAMIN TABLET Take one(1) tablet daily. ADULT LOW DOSE ASPIRIN 81 MG * Take one(1) tablet daily. Problem List As Of Date 01/10/2018 Noted Resolved Osteoarthrosis, unspecified whether generalized*INVALID FOR* Priority: M Mixed hyperlipidemia [E78.2] INVALID FOR* Priority: A DISC DEGENERATION NOS [SGB4899] INVALID FOR* Priority: M Cough [R05] INVALID FOR*07/06/2009 More... More... Colon polyps [K63.5] INVALID FOR* Priority: C More... Spinal stenosis, lumbar [M48.061] INVALID FOR* Priority: M Melanoma [C43.9] INVALID FOR* Priority: A More... Impaired fasting glucose [R73.01] INVALID FOR* Priority: A Family history of prostate cancer [Z80.42] INVALID FOR* Priority: F Prostate cancer (HCC) [C61] INVALID FOR* Priority: C More... Well adult exam [Z00.00] INVALID FOR* Priority: E More... Irritable bowel syndrome without diarrhea [K58.*INVALID FOR* Priority: C Allergic rhinitis [J30.9] INVALID FOR* Priority: B Benign non-nodular prostatic hyperplasia withou*INVALID FOR* Priority: C Cluster headache, not intractable [G44.009] INVALID FOR* Priority: A More... Generalized anxiety disorder [F41.1] INVALID FOR* Priority: A Hiatal hernia [K44.9] INVALID FOR* Priority: A GERD with esophagitis [K21.0] INVALID FOR* Priority: A Medicare annual wellness visit, subsequent [Z00*INVALID FOR* Priority: E More... Encounter Status:Closed by FREDA YODER on 01/10/18 CNOV Observed: 01/08/2018 Status: COMPLETED Source: [place] 6:30 PM [facility] RE[facility] Office Visit ([facility]) FRANTZ DESAI ([id number]) 1945 M Date Time Provider Department 01/08/18 6:30 PM MITZI HITCHCOCK ([facility]) [facility] During your visit today, we recorded the following information about you: Temperature Pulse Respiration Blood pressure 97.1 degrees 78/minute 16/minute 100/80 Weight 78.9 kg Mitzi Hitchcock APRN.CNP 01/08/2018 6:44 PM Signed Subjective The history is provided by the patient. No interpreter translator was used. [facility] Frantz Desai is a 72 year old male who presents today for CC of sinus pressure and congestion This started 2 weeks ago, and is worsening, seems to be getting better, but worsened over the past 24 hours. He is also having green drainage. Symptoms are worsened by leaning forward or lying down. He has tried medications as discussed at last visit. Risk factors cold for 2 weeks. BP 100/80 Pulse 78 Temp 36.2 ?C (97.1 ?F) (Left Tympanic) Resp 16 Wt 78.9 kg (174 lb) SpO2 98% BMI 28.51 kg/m? ALLERGIES Allergen Reactions - Nut - Unspecified Anaphylaxis headache - Sulfa (Sulfonamide * Rash - Alcohol Other: See Comments headache - Chocolate Other: See Comments headaches ACTIVE PROBLEM LIST Osteoarthrosis, unspecified whether generalized or localized, unspecified site Mixed Hyperlipidemia DISC DEGENERATION NOS Colon Polyps Spinal Stenosis, Lumbar Melanoma (Hcc) Impaired Fasting Glucose Family History of Prostate Cancer Prostate Cancer (Hcc) Well Adult Exam Irritable Bowel Syndrome Without Diarrhea Allergic Rhinitis Benign Non-Nodular Prostatic Hyperplasia Without Lower Urinary Tract Symptoms Cluster Headache, Not Intractable Generalized Anxiety Disorder Hiatal Hernia Gerd With Esophagitis Medicare Annual Wellness Visit, Subsequent Family History Problem Relation Age of Onset - Cancer Mother lung- age 75 - Cancer Brother prostate diagnosed at 64 Social History Marital status: Spouse name: Emmanuelle Years of education: Number of children: 2 Occupational History Occupation Employer Comment [employer]- retired [employer]* Social History Main Topics Smoking status: Former Smoker Packs/day: 0.00 Years: 0.00 Types: Cigarettes Smokeless tobacco: Former User Comment: last smoked 20 years ago (age 39). Smoked for 25 years Alcohol use: No Drug use: No Sexual activity: Yes Partners with: Female PAST MEDICAL HISTORY Diagnosis Date - Acid reflux - Allergic rhinitis, cause unspecified Allergic rhinitis - Enlarged prostate - Hypertrophy of prostate without urinary obstruction and other lower urinary tract symptoms (LUTS) Hypertrophy of the prostate w/o obstruction - Impaired fasting glucose 10/13/2010 - Irritable bowel syndrome Irritable bowel - Mental disorder anxiety - Migraine - Mixed hyperlipidemia Hyperlipidemia - Nontraumatic rupture of tendons of biceps (long head) 2006 right arm - Osteoarthrosis, unspecified whether generalized or localized, other specified sites Osteoarthritis Review of Systems Constitutional: Positive for malaise/fatigue. Negative for chills and fever. HENT: Positive for congestion, ear pain (pressure) and sinus pain. Negative for sore throat. Respiratory: Positive for cough. Negative for sputum production, shortness of breath and wheezing. Cardiovascular: Negative for chest pain. Musculoskeletal: Negative for myalgias. Skin: Negative for rash. Neurological: Positive for headaches. Objective Physical Exam Constitutional: He is well-developed, well-nourished, and in no distress. HENT: Head: Normocephalic and atraumatic. Right Ear: Tympanic membrane, external ear and ear canal normal. Tympanic membrane is not injected, not erythematous, not retracted and not bulging. No middle ear effusion. Left Ear: External ear and ear canal normal. Tympanic membrane is bulging. Tympanic membrane is not injected, not erythematous and not retracted. A middle ear effusion (serous) is present. Nose: Mucosal edema and rhinorrhea present. Right sinus exhibits maxillary sinus tenderness. Right sinus exhibits no frontal sinus tenderness. Left sinus exhibits maxillary sinus tenderness. Left sinus exhibits no frontal sinus tenderness. Mouth/Throat: Uvula is midline, oropharynx is clear and moist and mucous membranes are normal. No oropharyngeal exudate, posterior oropharyngeal edema, posterior oropharyngeal erythema or tonsillar abscesses. Eyes: Conjunctivae and EOM are normal. Pupils are equal, round, and reactive to light. Neck: Normal range of motion. Cardiovascular: Normal rate, regular rhythm and normal heart sounds. Pulmonary/Chest: Effort normal and breath sounds normal. No respiratory distress. He has no decreased breath sounds. He has no wheezes. He has no rhonchi. He has no rales. A rattling cough was noted during this encounter. Talking in full sentences. Handling secretions without drooling. Lips and nailbeds are pink without cyanosis. Lymphadenopathy: Head (right side): No submental, no submandibular, no tonsillar, no preauricular and no posterior auricular adenopathy present. Head (left side): No submental, no submandibular, no tonsillar, no preauricular and no posterior auricular adenopathy present. He has no cervical adenopathy. Right cervical: No posterior cervical adenopathy present. Left cervical: No posterior cervical adenopathy present. Right: No supraclavicular adenopathy present. Left: No supraclavicular adenopathy present. Skin: Skin is warm and dry. Psychiatric: Affect normal. Nursing note and vitals reviewed. ASSESSMENT/PLAN: 1. Acute non-recurrent pansinusitis - ICD9: 461.8, ICD10: J01.40 - Will begin treatment with Doxycline - The patient should also be given warm salt water gargles, throat lozenges and/or OTC throat spray as needed for the first 5-7 days of treatment. - Supportive care with plenty of fluids, rest, and analgesia prn. - Follow up in one week if symptoms persist or worsen. - -Increase fluid intake. Try to drink at least 8 glasses of non caffeinated fluids daily. --Rest as much as possible. -Do the nasal saline irrigation at least 2 x day to relieve nasal mucous and congestion: brands include Jitendra Med, Simply saline, [place] nasal spray, or even the generic store brand one is ok. Take the entire course of antibiotics as prescribed. DO NOT stop taking it early, even if you are feeling better. -Practice good hygiene, wash hands frequently. -Monitor for signs of worsening infection: increased temperature, pain in face, ear pain or headaches or increase in nasal congestion/mucous that is not improving. -Educated patient on side effects of medication. * Seek medical care immediately, call 911, go to ER if you have chest pain, difficulty breathing, shortness of breath, inability to swallow. - DOXYCYCLINE MONOHYDRATE 100 MG CAPSULE Diagnosis and treatment plan were discussed and questions were answered to the patient's satisfaction. Pt acknowledged understanding of concepts and follow up plan. Specific signs and symptoms that would indicate the need for higher level of care were discussed in detail warranting prompt ER evaluation. Mitzi Hitchcock APRN.ELIZABETH Hitchcock APRN.CNP 01/08/2018 6:33 PM Signed ASSESSMENT/PLAN: 1. Acute non-recurrent pansinusitis - ICD9: 461.8, ICD10: J01.40 - Will begin treatment with Doxycline - The patient should also be given warm salt water gargles, throat lozenges and/or OTC throat spray as needed for the first 5-7 days of treatment. - Supportive care with plenty of fluids, rest, and analgesia prn. - Follow up in one week if symptoms persist or worsen. - -Increase fluid intake. Try to drink at least 8 glasses of non caffeinated fluids daily. --Rest as much as possible. -Do the nasal saline irrigation at least 2 x day to relieve nasal mucous and congestion: brands include Jitendra Med, Simply saline, [place] nasal spray, or even the generic store brand one is ok. Take the entire course of antibiotics as prescribed. DO NOT stop taking it early, even if you are feeling better. -Practice good hygiene, wash hands frequently. -Monitor for signs of worsening infection: increased temperature, pain in face, ear pain or headaches or increase in nasal congestion/mucous that is not improving. -Educated patient on side effects of medication. * Seek medical care immediately, call 911, go to ER if you have chest pain, difficulty breathing, shortness of breath, inability to swallow. - DOXYCYCLINE MONOHYDRATE 100 MG CAPSULE Referring Provider: SELF [[id number]] Allergies As of Date: 01/08/2018 Noted Allergy Reaction NUT - UNSPECIFIED 07/06/2009 10 - Anaphylaxis Comments: headache SULFA (SULFONAMIDE ANTIBIOTICS) 04/16/2005 2 - Rash ALCOHOL 07/06/2009 14 - Other: See Comments Comments: headache CHOCOLATE 07/06/2009 14 - Other: See Comments Comments: headaches Date Reviewed: 01/08/2018 Reviewed by: Mitzi Hitchcock - Fully Assessed Reason for Visit: URI [115] Primary Visit Diagnosis:Acute non-recurrent pansinusitis [J01.40] Order(s):doxycycline monohydrate (MONODOX) 100 mg capsuleTake 1 capsule by mouth twice daily for 10 days.Disp: 20 capsuleRfl: 0 Dbdbaizknzpqyod-Irytyezbx-KL (BROMFED DM) 2-30-10 mg/5 mL syrupTake 5-10 ml po q6h prnDisp: 120 mLRfl: 0 Prescriptions as of 01/08/2018 Sig: TAMSULOSIN 0.4 MG CAPSULE Take 1 capsule by mouth once * SIMVASTATIN 20 MG TABLET Take 1 tablet by mouth daily * FLUTICASONE 50 MCG/ACTUATION * Use 1 [place] in each nostril o* RIZATRIPTAN 10 MG TABLET TAKE 1 TABLET AT ONSET OF HEA* SERTRALINE 50 MG TABLET TAKE ONE AND ONE-HALF TABLETS* ETODOLAC 400 MG TABLET Take 1 tablet by mouth once d* MULTIVITAMIN TABLET Take one(1) tablet daily. ADULT LOW DOSE ASPIRIN 81 MG * Take one(1) tablet daily. DOXYCYCLINE MONOHYDRATE 100 M* Take 1 capsule by mouth twice* BROMPHENIRAMINE-PSEUDOEPHEDRI* Take 5-10 ml po q6h prn Problem List As Of Date 01/08/2018 Noted Resolved Osteoarthrosis, unspecified whether generalized*INVALID FOR* Priority: M Mixed hyperlipidemia [E78.2] INVALID FOR* Priority: A DISC DEGENERATION NOS [[id number]] INVALID FOR* Priority: M Cough [R05] INVALID FOR*07/06/2009 More... More... Colon polyps [K63.5] INVALID FOR* Priority: C More... Spinal stenosis, lumbar [M48.061] INVALID FOR* Priority: M Melanoma [C43.9] INVALID FOR* Priority: A More... Impaired fasting glucose [R73.01] INVALID FOR* Priority: A Family history of prostate cancer [Z80.42] INVALID FOR* Priority: F Prostate cancer (HCC) [C61] INVALID FOR* Priority: C More... Well adult exam [Z00.00] INVALID FOR* Priority: E More... Irritable bowel syndrome without diarrhea [K58.*INVALID FOR* Priority: C Allergic rhinitis [J30.9] INVALID FOR* Priority: B Benign non-nodular prostatic hyperplasia withou*INVALID FOR* Priority: C Cluster headache, not intractable [G44.009] INVALID FOR* Priority: A More... Generalized anxiety disorder [F41.1] INVALID FOR* Priority: A Hiatal hernia [K44.9] INVALID FOR* Priority: A GERD with esophagitis [K21.0] INVALID FOR* Priority: A Medicare annual wellness visit, subsequent [Z00*INVALID FOR* Priority: E More... Other instructions from your clinician: ASSESSMENT/PLAN: 1. Acute non-recurrent pansinusitis - ICD9: 461.8, ICD10: J01.40 - Will begin treatment with Doxycline - The patient should also be given warm salt water gargles, throat lozenges and/or OTC throat spray as needed for the first 5-7 days of treatment. - Supportive care with plenty of fluids, rest, and analgesia prn. - Follow up in one week if symptoms persist or worsen. - -Increase fluid intake. Try to drink at least 8 glasses of non caffeinated fluids daily. --Rest as much as possible. -Do the nasal saline irrigation at least 2 x day to relieve nasal mucous and congestion: brands include Jitendra Med, Simply saline, [place] nasal spray, or even the generic store brand one is ok. Take the entire course of antibiotics as prescribed. DO NOT stop taking it early, even if you are feeling better. -Practice good hygiene, wash hands frequently. -Monitor for signs of worsening infection: increased temperature, pain in face, ear pain or headaches or increase in nasal congestion/mucous that is not improving. -Educated patient on side effects of medication. * Seek medical care immediately, call 911, go to ER if you have chest pain, difficulty breathing, shortness of breath, inability to swallow. - DOXYCYCLINE MONOHYDRATE 100 MG CAPSULE Prescriptions ordered this encounter Disp Refills Start End DOXYCYCLINE MONOHYDRATE 100 MG CAPSU* 20 c* 0 01/08/2018 01/18/2018 Route: ORAL Sig: Take 1 capsule by mouth twice daily for 10 days. DBOJCEHPWGKQIQS-FZBHASIZPTCKZSZ-WM 2* 120 * 0 01/08/2018 Sig: Take 5-10 ml po q6h prn Medications Discontinued During This Encounter cetirizine (ZYRTEC) 5 mg tablet 90 t* 3 06/08/2015 01/08/2018 Route: ORAL Sig: Take 1 tablet by mouth once daily. Disc: Course of therapy completed Uzwidfsllbeywme-Gmfyamcld-PE (BROMFE* 120 * 0 12/31/2017 01/08/2018 Sig: Take 5-10 ml po q6h prn Disc: Reason for discontinue is not on file. Encounter Status:Closed by MITZI HITCHCOCK CNP on 01/08/18 PROGRESS Observed: 01/08/2018 Status: COMPLETED Source: [place] 6:[address] [facility] [place] REPOSITORY HNO ID: [id number] Author: Mitzi Barrett) Oliver Service: (none) Author Type: Nurse Practitioner Type: Progress Notes Filed: 01/08/2018 6:44 PM Note Text: Subjective The history is provided by the patient. No interpreter translator was used. HPI Frantz Desai is a 72 year old male who presents today for CC of sinus pressure and congestion This started 2 weeks ago, and is worsening, seems to be getting better, but worsened over the past 24 hours. He is also having green drainage. Symptoms are worsened by leaning forward or lying down. He has tried medications as discussed at last visit. Risk factors cold for 2 weeks. BP 100/80 Pulse 78 Temp 36.2 ?C (97.1 ?F) (Left Tympanic) Resp 16 Wt 78.9 kg (174 lb) SpO2 98% BMI 28.51 kg/m? ALLERGIES Allergen Reactions - Nut - Unspecified Anaphylaxis headache - Sulfa (Sulfonamide * Rash - Alcohol Other: See Comments headache - Chocolate Other: See Comments headaches ACTIVE PROBLEM LIST Osteoarthrosis, unspecified whether generalized or localized, unspecified site Mixed Hyperlipidemia DISC DEGENERATION NOS Colon Polyps Spinal Stenosis, Lumbar Melanoma (Hcc) Impaired Fasting Glucose Family History of Prostate Cancer Prostate Cancer (Hcc) Well Adult Exam Irritable Bowel Syndrome Without Diarrhea Allergic Rhinitis Benign Non-Nodular Prostatic Hyperplasia Without Lower Urinary Tract Symptoms Cluster Headache, Not Intractable Generalized Anxiety Disorder Hiatal Hernia Gerd With Esophagitis Medicare Annual Wellness Visit, Subsequent Family History Problem Relation Age of Onset - Cancer Mother lung- age 75 - Cancer Brother prostate diagnosed at 64 Social History Marital status: Spouse name: Emmanuelle Years of education: Number of children: 2 Occupational History Occupation Employer Comment [employer]- retired [employer]* Social History Main Topics Smoking status: Former Smoker Packs/day: 0.00 Years: 0.00 Types: Cigarettes Smokeless tobacco: Former User Comment: last smoked 20 years ago (age 39). Smoked for 25 years Alcohol use: No Drug use: No Sexual activity: Yes Partners with: Female PAST MEDICAL HISTORY Diagnosis Date - Acid reflux - Allergic rhinitis, cause unspecified Allergic rhinitis - Enlarged prostate - Hypertrophy of prostate without urinary obstruction and other lower urinary tract symptoms (LUTS) Hypertrophy of the prostate w/o obstruction - Impaired fasting glucose 10/13/2010 - Irritable bowel syndrome Irritable bowel - Mental disorder anxiety - Migraine - Mixed hyperlipidemia Hyperlipidemia - Nontraumatic rupture of tendons of biceps (long head) 2006 right arm - Osteoarthrosis, unspecified whether generalized or localized, other specified sites Osteoarthritis Review of Systems Constitutional: Positive for malaise/fatigue. Negative for chills and fever. HENT: Positive for congestion, ear pain (pressure) and sinus pain. Negative for sore throat. Respiratory: Positive for cough. Negative for sputum production, shortness of breath and wheezing. Cardiovascular: Negative for chest pain. Musculoskeletal: Negative for myalgias. Skin: Negative for rash. Neurological: Positive for headaches. Objective Physical Exam Constitutional: He is well-developed, well-nourished, and in no distress. HENT: Head: Normocephalic and atraumatic. Right Ear: Tympanic membrane, external ear and ear canal normal. Tympanic membrane is not injected, not erythematous, not retracted and not bulging. No middle ear effusion. Left Ear: External ear and ear canal normal. Tympanic membrane is bulging. Tympanic membrane is not injected, not erythematous and not retracted. A middle ear effusion (serous) is present. Nose: Mucosal edema and rhinorrhea present. Right sinus exhibits maxillary sinus tenderness. Right sinus exhibits no frontal sinus tenderness. Left sinus exhibits maxillary sinus tenderness. Left sinus exhibits no frontal sinus tenderness. Mouth/Throat: Uvula is midline, oropharynx is clear and moist and mucous membranes are normal. No oropharyngeal exudate, posterior oropharyngeal edema, posterior oropharyngeal erythema or tonsillar abscesses. Eyes: Conjunctivae and EOM are normal. Pupils are equal, round, and reactive to light. Neck: Normal range of motion. Cardiovascular: Normal rate, regular rhythm and normal heart sounds. Pulmonary/Chest: Effort normal and breath sounds normal. No respiratory distress. He has no decreased breath sounds. He has no wheezes. He has no rhonchi. He has no rales. A rattling cough was noted during this encounter. Talking in full sentences. Handling secretions without drooling. Lips and nailbeds are pink without cyanosis. Lymphadenopathy: Head (right side): No submental, no submandibular, no tonsillar, no preauricular and no posterior auricular adenopathy present. Head (left side): No submental, no submandibular, no tonsillar, no preauricular and no posterior auricular adenopathy present. He has no cervical adenopathy. Right cervical: No posterior cervical adenopathy present. Left cervical: No posterior cervical adenopathy present. Right: No supraclavicular adenopathy present. Left: No supraclavicular adenopathy present. Skin: Skin is warm and dry. Psychiatric: Affect normal. Nursing note and vitals reviewed. ASSESSMENT/PLAN: 1. Acute non-recurrent pansinusitis - ICD9: 461.8, ICD10: J01.40 - Will begin treatment with Doxycline - The patient should also be given warm salt water gargles, throat lozenges and/or OTC throat spray as needed for the first 5- 7 days of treatment. - Supportive care with plenty of fluids, rest, and analgesia prn. - Follow up in one week if symptoms persist or worsen. - -Increase fluid intake. Try to drink at least 8 glasses of non caffeinated fluids daily. --Rest as much as possible. -Do the nasal saline irrigation at least 2 x day to relieve nasal mucous and congestion: brands include Jitendra Med, Simply saline, [place] nasal spray, or even the generic store brand one is ok. Take the entire course of antibiotics as prescribed. DO NOT stop taking it early, even if you are feeling better. -Practice good hygiene, wash hands frequently. -Monitor for signs of worsening infection: increased temperature, pain in face, ear pain or headaches or increase in nasal congestion/mucous that is not improving. -Educated patient on side effects of medication. * Seek medical care immediately, call 911, go to ER if you have chest pain, difficulty breathing, shortness of breath, inability to swallow. - DOXYCYCLINE MONOHYDRATE 100 MG CAPSULE Diagnosis and treatment plan were discussed and questions were answered to the patient's satisfaction. Pt acknowledged understanding of concepts and follow up plan. Specific signs and symptoms that would indicate the need for higher level of care were discussed in detail warranting prompt ER evaluation. Mitzi Hitchcock APRN.CNP CNOV Observed: 12/31/2017 Status: COMPLETED Source: [place] 1:45 PM [facility] [place] [facility] [facility] Office Visit (WSTR) FRANTZ DESAI ([id number]) 1945 M Date Time Provider Department 12/31/17 1:45 PM MITZI HITCHCOCK ([facility]) [facility] During your visit today, we recorded the following information about you: Temperature Pulse Respiration Blood pressure 98.4 degrees 88/minute 16/minute 122/72 Weight 76.7 kg Mitzi Hitchcock APRN.CNP 12/31/2017 2:12 PM Signed Subjective The history is provided by the patient. No interpreter translator was used. HPI Frantzada Desai is a 72 year old male who presents today for CC of nasal congestion, cough, and sore throat This started 2 days ago. He is also having nasal drainage Symptoms are worsened by lying down. He has tried no treatment or medications. Risk factors none known. BP 122/72 Pulse 88 Temp 36.9 ?C (98.4 ?F) (Tympanic) Resp 16 Wt 76.7 kg (169 lb) SpO2 98% BMI 27.70 kg/m? ALLERGIES Allergen Reactions - Nut - Unspecified Anaphylaxis headache - Sulfa (Sulfonamide * Rash - Alcohol Other: See Comments headache - Chocolate Other: See Comments headaches ACTIVE PROBLEM LIST Osteoarthrosis, unspecified whether generalized or localized, unspecified site Mixed Hyperlipidemia DISC DEGENERATION NOS Colon Polyps Spinal Stenosis, Lumbar Melanoma (Hcc) Impaired Fasting Glucose Family History of Prostate Cancer Prostate Cancer (Hcc) Well Adult Exam Irritable Bowel Syndrome Without Diarrhea Allergic Rhinitis Benign Non-Nodular Prostatic Hyperplasia Without Lower Urinary Tract Symptoms Cluster Headache, Not Intractable Generalized Anxiety Disorder Hiatal Hernia Gerd With Esophagitis Medicare Annual Wellness Visit, Subsequent Family History Problem Relation Age of Onset - Cancer Mother lung- age 75 - Cancer Brother prostate diagnosed at 64 Social History Marital status: Spouse name: Emmanuelle Years of education: Number of children: 2 Occupational History Occupation Employer Comment [employer]- retired [employer]* Social History Main Topics Smoking status: Former Smoker Packs/day: 0.00 Years: 0.00 Types: Cigarettes Smokeless tobacco: Former User Comment: last smoked 20 years ago (age 39). Smoked for 25 years Alcohol use: No Drug use: No Sexual activity: Yes Partners with: Female PAST MEDICAL HISTORY Diagnosis Date - Acid reflux - Allergic rhinitis, cause unspecified Allergic rhinitis - Enlarged prostate - Hypertrophy of prostate without urinary obstruction and other lower urinary tract symptoms (LUTS) Hypertrophy of the prostate w/o obstruction - Impaired fasting glucose 10/13/2010 - Irritable bowel syndrome Irritable bowel - Mental disorder anxiety - Migraine - Mixed hyperlipidemia Hyperlipidemia - Nontraumatic rupture of tendons of biceps (long head) 2006 right arm - Osteoarthrosis, unspecified whether generalized or localized, other specified sites Osteoarthritis Review of Systems Constitutional: Negative. Negative for chills, fever and malaise/fatigue. HENT: Positive for congestion, ear pain (left), sinus pain and sore throat. Respiratory: Positive for cough. Negative for sputum production, shortness of breath and wheezing. Cardiovascular: Negative for chest pain. Musculoskeletal: Negative for myalgias. Skin: Negative for rash. Neurological: Positive for headaches. Objective Physical Exam Constitutional: He is well-developed, well-nourished, and in no distress. HENT: Head: Normocephalic and atraumatic. Right Ear: Tympanic membrane, external ear and ear canal normal. Tympanic membrane is not injected, not erythematous, not retracted and not bulging. No middle ear effusion. Left Ear: External ear and ear canal normal. Tympanic membrane is bulging. Tympanic membrane is not injected, not erythematous and not retracted. A middle ear effusion (serous) is present. Nose: Mucosal edema and rhinorrhea present. No nose lacerations. Right sinus exhibits no maxillary sinus tenderness and no frontal sinus tenderness. Left sinus exhibits no maxillary sinus tenderness and no frontal sinus tenderness. Mouth/Throat: Uvula is midline and mucous membranes are normal. Posterior oropharyngeal erythema present. No oropharyngeal exudate, posterior oropharyngeal edema or tonsillar abscesses. Eyes: Conjunctivae and EOM are normal. Pupils are equal, round, and reactive to light. Neck: Normal range of motion. Cardiovascular: Normal rate, regular rhythm and normal heart sounds. Pulmonary/Chest: Effort normal and breath sounds normal. No respiratory distress. He has no decreased breath sounds. He has no wheezes. He has no rhonchi. He has no rales. A dry harsh cough was noted during this encounter. Talking in full sentences. Handling secretions without drooling. Lips and nailbeds are pink without cyanosis. Lymphadenopathy: Head (right side): No submental, no submandibular, no tonsillar, no preauricular and no posterior auricular adenopathy present. Head (left side): No submental, no submandibular, no tonsillar, no preauricular and no posterior auricular adenopathy present. He has no cervical adenopathy. Right cervical: No posterior cervical adenopathy present. Left cervical: No posterior cervical adenopathy present. Right: No supraclavicular adenopathy present. Left: No supraclavicular adenopathy present. Skin: Skin is warm and dry. Psychiatric: Affect normal. Nursing note and vitals reviewed. ASSESSMENT/PLAN: 1. URI with cough and congestion - ICD9: 465.9, ICD10: J06.9 - Discussed viral etiology and rationale for treatment. You need to rest as much as possible. Motrin or Tylenol as needed for fever or pain. Salt water gargles, chloraseptic spray or lozenges as needed for sore throat. Nasal saline irrigation at least 2 x day. Drink at least 8 glasses of fluids per day that aren't caffeinated. Eat a nutritious diet. Use a humidifier in your room at night. Take 5-10 ml po q6h prn Tylenol (generic acetaminophen) 500 mg-2 tabs every 8 hrs. as needed for fever and aches Ibuprofen 600 mg (3-200mg tablets) every 6 hours * Seek medical care immediately, call 911, go to ER if you have chest pain, difficulty breathing, shortness of breath, inability to swallow. Diagnosis and treatment plan were discussed and questions were answered to the patient's satisfaction. Pt acknowledged understanding of concepts and follow up plan. Specific signs and symptoms that would indicate the need for higher level of care were discussed in detail warranting prompt ER evaluation. Mitzi Hitchcock APRN.ELIZABETH Hitchcock APRN.CNP 12/31/2017 2:00 PM Signed ASSESSMENT/PLAN: 1. URI with cough and congestion - ICD9: 465.9, ICD10: J06.9 - Discussed viral etiology and rationale for treatment. You need to rest as much as possible. Motrin or Tylenol as needed for fever or pain. Salt water gargles, chloraseptic spray or lozenges as needed for sore throat. Nasal saline irrigation at least 2 x day. Drink at least 8 glasses of fluids per day that aren't caffeinated. Eat a nutritious diet. Use a humidifier in your room at night. Take 5-10 ml po q6h prn Tylenol (generic acetaminophen) 500 mg-2 tabs every 8 hrs. as needed for fever and aches Ibuprofen 600 mg (3-200mg tablets) every 6 hours * Seek medical care immediately, call 911, go to ER if you have chest pain, difficulty breathing, shortness of breath, inability to swallow. Referring Provider: SELF [[id number]] Allergies As of Date: 12/31/2017 Noted Allergy Reaction NUT - UNSPECIFIED 07/06/2009 10 - Anaphylaxis Comments: headache SULFA (SULFONAMIDE ANTIBIOTICS) 04/16/2005 2 - Rash ALCOHOL 07/06/2009 14 - Other: See Comments Comments: headache CHOCOLATE 07/06/2009 14 - Other: See Comments Comments: headaches Date Reviewed: 12/31/2017 Reviewed by: Josette Tang Ma - Fully Assessed Reason for Visit: Nasal Congestion [235] Cmt: clear drainage, headache, cough and sore throat x 2 days Primary Visit Diagnosis:URI with cough and congestion [J06.9] Order(s):Mpwnsoykzoyjvhp-Pwnsgjtjc-NN (BROMFED DM) 2-30-10 mg/5 mL syrupTake 5-10 ml po q6h prnDisp: 120 mLRfl: 0 Prescriptions as of 12/31/2017 Sig: SIMVASTATIN 20 MG TABLET Take 1 tablet by mouth daily * FLUTICASONE 50 MCG/ACTUATION * Use 1 [place] in each nostril o* RIZATRIPTAN 10 MG TABLET TAKE 1 TABLET AT ONSET OF HEA* SERTRALINE 50 MG TABLET TAKE ONE AND ONE-HALF TABLETS* ETODOLAC 400 MG TABLET Take 1 tablet by mouth once d* TAMSULOSIN 0.4 MG CAPSULE Take 1 capsule by mouth once * CETIRIZINE 5 MG TABLET Take 1 tablet by mouth once d* MULTIVITAMIN TABLET Take one(1) tablet daily. ADULT LOW DOSE ASPIRIN 81 MG * Take one(1) tablet daily. BROMPHENIRAMINE-PSEUDOEPHEDRI* Take 5-10 ml po q6h prn Problem List As Of Date 12/31/2017 Noted Resolved Osteoarthrosis, unspecified whether generalized*INVALID FOR* Priority: M Mixed hyperlipidemia [E78.2] INVALID FOR* Priority: A DISC DEGENERATION NOS [FFN8049] INVALID FOR* Priority: M Cough [R05] INVALID FOR*07/06/2009 More... More... Colon polyps [K63.5] INVALID FOR* Priority: C More... Spinal stenosis, lumbar [M48.061] INVALID FOR* Priority: M Melanoma [C43.9] INVALID FOR* Priority: A More... Impaired fasting glucose [R73.01] INVALID FOR* Priority: A Family history of prostate cancer [Z80.42] INVALID FOR* Priority: F Prostate cancer (HCC) [C61] INVALID FOR* Priority: C More... Well adult exam [Z00.00] INVALID FOR* Priority: E More... Irritable bowel syndrome without diarrhea [K58.*INVALID FOR* Priority: C Allergic rhinitis [J30.9] INVALID FOR* Priority: B Benign non-nodular prostatic hyperplasia withou*INVALID FOR* Priority: C Cluster headache, not intractable [G44.009] INVALID FOR* Priority: A More... Generalized anxiety disorder [F41.1] INVALID FOR* Priority: A Hiatal hernia [K44.9] INVALID FOR* Priority: A GERD with esophagitis [K21.0] INVALID FOR* Priority: A Medicare annual wellness visit, subsequent [Z00*INVALID FOR* Priority: E More... Other instructions from your clinician: ASSESSMENT/PLAN: 1. URI with cough and congestion - ICD9: 465.9, ICD10: J06.9 - Discussed viral etiology and rationale for treatment. You need to rest as much as possible. Motrin or Tylenol as needed for fever or pain. Salt water gargles, chloraseptic spray or lozenges as needed for sore throat. Nasal saline irrigation at least 2 x day. Drink at least 8 glasses of fluids per day that aren't caffeinated. Eat a nutritious diet. Use a humidifier in your room at night. Take 5-10 ml po q6h prn Tylenol (generic acetaminophen) 500 mg-2 tabs every 8 hrs. as needed for fever and aches Ibuprofen 600 mg (3-200mg tablets) every 6 hours * Seek medical care immediately, call 911, go to ER if you have chest pain, difficulty breathing, shortness of breath, inability to swallow. Prescriptions ordered this encounter Disp Refills Start End DZNUPYXRXVKYJWZ-TYOBUUMXKIUAQYG-UR 2* 120 * 0 12/31/2017 Sig: Take 5-10 ml po q6h prn Encounter Status:Closed by MITZI HITCHCOCK CNP on 12/31/17 PROGRESS Observed: 12/31/2017 Status: COMPLETED Source: [place] 1:[address] [facility] [place] REPOSITORY HNO ID: [id number] Author: Mitzi Barrett) Oliver Service: (none) Author Type: Nurse Practitioner Type: Progress Notes Filed: 12/31/2017 2:12 PM Note Text: Subjective The history is provided by the patient. No interpreter translator was used. HPI Frantz Desai is a 72 year old male who presents today for CC of nasal congestion, cough, and sore throat This started 2 days ago. He is also having nasal drainage Symptoms are worsened by lying down. He has tried no treatment or medications. Risk factors none known. BP 122/72 Pulse 88 Temp 36.9 ?C (98.4 ?F) (Tympanic) Resp 16 Wt 76.7 kg (169 lb) SpO2 98% BMI 27.70 kg/m? ALLERGIES Allergen Reactions - Nut - Unspecified Anaphylaxis headache - Sulfa (Sulfonamide * Rash - Alcohol Other: See Comments headache - Chocolate Other: See Comments headaches ACTIVE PROBLEM LIST Osteoarthrosis, unspecified whether generalized or localized, unspecified site Mixed Hyperlipidemia DISC DEGENERATION NOS Colon Polyps Spinal Stenosis, Lumbar Melanoma (Hcc) Impaired Fasting Glucose Family History of Prostate Cancer Prostate Cancer (Hcc) Well Adult Exam Irritable Bowel Syndrome Without Diarrhea Allergic Rhinitis Benign Non-Nodular Prostatic Hyperplasia Without Lower Urinary Tract Symptoms Cluster Headache, Not Intractable Generalized Anxiety Disorder Hiatal Hernia Gerd With Esophagitis Medicare Annual Wellness Visit, Subsequent Family History Problem Relation Age of Onset - Cancer Mother lung- age 75 - Cancer Brother prostate diagnosed at 64 Social History Marital status: Spouse name: Emmanuelle Years of education: Number of children: 2 Occupational History Occupation Employer Comment [employer]- retired [employer]* Social History Main Topics Smoking status: Former Smoker Packs/day: 0.00 Years: 0.00 Types: Cigarettes Smokeless tobacco: Former User Comment: last smoked 20 years ago (age 39). Smoked for 25 years Alcohol use: No Drug use: No Sexual activity: Yes Partners with: Female PAST MEDICAL HISTORY Diagnosis Date - Acid reflux - Allergic rhinitis, cause unspecified Allergic rhinitis - Enlarged prostate - Hypertrophy of prostate without urinary obstruction and other lower urinary tract symptoms (LUTS) Hypertrophy of the prostate w/o obstruction - Impaired fasting glucose 10/13/2010 - Irritable bowel syndrome Irritable bowel - Mental disorder anxiety - Migraine - Mixed hyperlipidemia Hyperlipidemia - Nontraumatic rupture of tendons of biceps (long head) 2006 right arm - Osteoarthrosis, unspecified whether generalized or localized, other specified sites Osteoarthritis Review of Systems Constitutional: Negative. Negative for chills, fever and malaise/fatigue. HENT: Positive for congestion, ear pain (left), sinus pain and sore throat. Respiratory: Positive for cough. Negative for sputum production, shortness of breath and wheezing. Cardiovascular: Negative for chest pain. Musculoskeletal: Negative for myalgias. Skin: Negative for rash. Neurological: Positive for headaches. Objective Physical Exam Constitutional: He is well-developed, well-nourished, and in no distress. HENT: Head: Normocephalic and atraumatic. Right Ear: Tympanic membrane, external ear and ear canal normal. Tympanic membrane is not injected, not erythematous, not retracted and not bulging. No middle ear effusion. Left Ear: External ear and ear canal normal. Tympanic membrane is bulging. Tympanic membrane is not injected, not erythematous and not retracted. A middle ear effusion (serous) is present. Nose: Mucosal edema and rhinorrhea present. No nose lacerations. Right sinus exhibits no maxillary sinus tenderness and no frontal sinus tenderness. Left sinus exhibits no maxillary sinus tenderness and no frontal sinus tenderness. Mouth/Throat: Uvula is midline and mucous membranes are normal. Posterior oropharyngeal erythema present. No oropharyngeal exudate, posterior oropharyngeal edema or tonsillar abscesses. Eyes: Conjunctivae and EOM are normal. Pupils are equal, round, and reactive to light. Neck: Normal range of motion. Cardiovascular: Normal rate, regular rhythm and normal heart sounds. Pulmonary/Chest: Effort normal and breath sounds normal. No respiratory distress. He has no decreased breath sounds. He has no wheezes. He has no rhonchi. He has no rales. A dry harsh cough was noted during this encounter. Talking in full sentences. Handling secretions without drooling. Lips and nailbeds are pink without cyanosis. Lymphadenopathy: Head (right side): No submental, no submandibular, no tonsillar, no preauricular and no posterior auricular adenopathy present. Head (left side): No submental, no submandibular, no tonsillar, no preauricular and no posterior auricular adenopathy present. He has no cervical adenopathy. Right cervical: No posterior cervical adenopathy present. Left cervical: No posterior cervical adenopathy present. Right: No supraclavicular adenopathy present. Left: No supraclavicular adenopathy present. Skin: Skin is warm and dry. Psychiatric: Affect normal. Nursing note and vitals reviewed. ASSESSMENT/PLAN: 1. URI with cough and congestion - ICD9: 465.9, ICD10: J06.9 - Discussed viral etiology and rationale for treatment. You need to rest as much as possible. Motrin or Tylenol as needed for fever or pain. Salt water gargles, chloraseptic spray or lozenges as needed for sore throat. Nasal saline irrigation at least 2 x day. Drink at least 8 glasses of fluids per day that aren't caffeinated. Eat a nutritious diet. Use a humidifier in your room at night. Take 5-10 ml po q6h prn Tylenol (generic acetaminophen) 500 mg-2 tabs every 8 hrs. as needed for fever and aches Ibuprofen 600 mg (3-200mg tablets) every 6 hours * Seek medical care immediately, call 911, go to ER if you have chest pain, difficulty breathing, shortness of breath, inability to swallow. Diagnosis and treatment plan were discussed and questions were answered to the patient's satisfaction. Pt acknowledged understanding of concepts and follow up plan. Specific signs and symptoms that would indicate the need for higher level of care were discussed in detail warranting prompt ER evaluation. Mitzi Hitchcock APRN.[employer] TECHNICIAN PSA,TOTAL- DIAGNOSTIC Collected: 12/27/2017 Status: F Source: [place] 9:45 AM [facility] TYPE CODE TESTS RESULT OUT OF RANGE REFERENCE UNITS LAB L501.9940 0.0-4.0 ng/mL PSA, Normal DIAGNOSTIC 1.26 Result Comment: This test was performed using the TPSA assay method for the Transifex chemistry system. Values obtained with different assay methods cannot be used interchangably. When changing PSA assays in the course of monitoring a patient, additional sequential testing should be carried out to confirm baseline values. Performed By: #### L501.9940 #### [facility] [address] [place], [address] DOWNTIME REPORT Observed: 11/27/2017 Status: F Source: [place] 1:29 PM [facility] Medical Records Department [address] [place] [address] Downtime Report MR#: [id number] Acct: [id number] Name: FRANTZ DESAI Rep #: [id number] : 1945 72 From: Jeerl Macias MD PCP: Warner Overton MD Status: DEP ER This patient was seen during an EMR downtime November 11, 2017 - November 18, 2017. This patient may have a combination of paper and electronic documentation or all paper documentation. All documentation is viewable within the e-chart portion of [employer] for each patient visit. 12 LEAD ELECTROCARDIOGRAM Observed: 11/25/2017 Status: F Source: [place] 8:43 AM [facility] Cardiovascular Services [address] [place] [address] 12 Lead EKG 11/14/17 1327 MR#: [id number] Acct: [id number] Name: FRANTZ DESAI Rep #: [id number] : 1945 72 From: Silverio Stovall MD Attending Dr: Status: DEP ER Ordering Dr: Ruben Freeman MD Date: 11/14/17 Location: ED Sex: M C Admitted: Test Reason : PAIN LF SIDE Blood Pressure : / mmHG Vent. Rate : 070 BPM Atrial Rate : 070 BPM P-R Int : 164 ms QRS Dur : 082 ms QT Int : 390 ms P-R-T Axes : 045 000 033 degrees QTc Int : 421 ms Normal sinus rhythm Normal ECG Confirmed by SILVERIO STOVALL MD ([id number]), editorial intern CARMEN MACIAS ([id number]) on 11/20/2017 5:30:08 PM Referred By: CAITLIN Confirmed By:SILVERIO STOVALL MD 11/20/17 1730 Date Silverio Stovall MD CC: MD Michael Freeman; Warner Overton MD Signed CHEST PA AND LATERAL Observed: 11/15/2017 Status: F Source: [place] 12:11 PM [facility] REPOSITORY [facility] Imaging Services [address] [place] [address] Chest PA and Lateral MR#: [id number] Acct: [id number] Name: FRANTZ DESAI Rep #: [id number] : 1945 M 72 From: Rafael Godinez MD PCP: Warner Overton MD Status: REG ER Study: Chest PA and Lateral Date of Exam: 11/14/17 Exam# [id number] Ordering Dr: Ruben Freeman MD STUDY: X-RAY CHEST REASON FOR EXAM: Male, 72 years old. Weakness. TECHNIQUE: Frontal and lateral views of the chest. COMPARISON: June 22, 2017 FINDINGS: The lungs are mildly hyperexpanded and there is scarring at both bases unchanged. There is no demonstrated pleural abnormality. Normal size heart. Normal mediastinum and autumn. Normal visualized pulmonary arteries. There is atherosclerotic calcification of the aortic arch with tortuosity. Normal visualized thoracic spine. Normal visualized ribs, clavicles, and shoulders. There is no demonstrated abnormality of the visualized soft tissue structures of the upper abdomen. RAD/Chest PA and Lateral IMPRESSION: Stable appearance of the chest with no new or acute pathology. Electronically Signed: Rafael Godinez MD at 12:58 EDT , Service support , CC: MD Michael Freeman; Warner Overton MD Forwarder Operator: Signed COMPREHENSIVE METABOLIC Collected: 11/14/2017 Status: F Source: [place] 12:00 AM [facility] REPOSITORY Order Comment: RESULT(S) PREVIOUSLY REPORTED ON MANUAL REQUISITION DURING DOWNTIME. 'TROP' Serial specimen #1, #2, #3, or #4: 1 TYPE CODE TESTS RESULT OUT OF RANGE REFERENCE UNITS LAB L501.0100 74-106 mg/dL Normal GLU 76 Result Comment: Please note revised GLUCOSE reference range effective 2017. LAB L501.1000 7-18 mg/dL High BUN 23 LAB L501.1100 0.70-1.30 mg/dL Normal CREAT,SERUM 0.91 Result Comment: The validity of the calculated GFR AND GFRAA in patients over 70 years has not been determined. Clinical correlation is essential. LAB L501.1110 >60 mL/min Normal EST GFR 87 LAB L501.1115 >60 mL/min Normal EST GFR - AA 105 LAB L501.1300 10-20 RATIO High BUN/CRE 25.3 LAB L501.1500 6.4-8.2 g/dL Normal T PROT 6.9 LAB L501.1800 3.2-5.0 g/dL Normal ALB 3.5 LAB L501.1950 2.2-4.2 g/dL Normal GLOB 3.4 LAB L501.2000 0.9-2.4 RATIO Normal A/G 1.0 LAB L501.2200 8.5-10.1 mg/dL Normal CA 8.5 LAB L501.4100 15-37 U/L Normal AST 15 LAB L501.4305 45-117 U/L Normal ALK P 56 LAB L501.4405 16-61 U/L Normal ALT 22 LAB L501.4600 0.20-1.00 mg/dL Normal T BILI 0.50 LAB L501.5300 136-145 mmol/L Normal NA 142 LAB L501.5600 3.5-5.1 mmol/L Normal K 4.0 LAB L501.5900 98-107 mmol/L Normal CL 107 LAB L501.6100 21.0-32.0 mmol/L Normal CO2 29.0 LAB L501.6200 5-15 Normal GAP 6 Performed By: #### L500.4050, L501.4010 #### [facility] [address] [place], [place], [address] TROPONIN-I Collected: 11/14/2017 Status: F Source: [place] 12:00 AM [facility] REPOSITORY Order Comment: RESULT(S) PREVIOUSLY REPORTED ON MANUAL REQUISITION DURING DOWNTIME. 'TROP' Serial specimen #1, #2, #3, or #4: 1 TYPE CODE TESTS RESULT OUT OF RANGE REFERENCE UNITS LAB L501.4010 <0.045 ng/mL Normal < 0.015 TROPONIN-I Result Comment: TROPONIN-I EXPECTED VALUES <0.045 Negative 0.045 - 0.590 Consistent with Cardiac Damage > OR = 0.600 Critical Value Not every elevated troponin is indicative of MA. These values should be used with clinical judgement in examining the patient's clinical picture for diagnosis. To establish a diagnosis of MA versus myocardial injury, there must be a demonstrated rise and/or fall in the troponin values, in addition to ischemic symptoms, EKG changes, new regional wall motion abnormality, and/or angiographical evidence. PLEASE NOTE: REFERENCE RANGES EDITED 17 Performed By: #### L500.4050, L501.4010 #### [facility] [address] [place], [place], [address] CBC W/DIFF, AUTOMATED Collected: 11/14/2017 Status: F Source: [place] 12:00 AM [facility] REPOSITORY Order Comment: RESULT(S) PREVIOUSLY REPORTED ON MANUAL REQUISITION DURING DOWNTIME. TYPE CODE TESTS RESULT OUT OF RANGE REFERENCE UNITS LAB L100.1000 4.4-11.0 K/mm3 Normal WBC 4.8 LAB L100.1200 4.6-6.2 M/mm3 Normal RBC 4.73 LAB L100.1300 13.0-16.5 g/dl Normal HGB 14.0 LAB L100.1400 40-54 % Normal HCT 41.7 LAB L100.1500 80-94 fL Normal MCV 88.2 LAB L100.1600 27.0-32.0 pg Normal MCH 29.6 LAB L100.1700 32-36 g/gl Normal MCHC 33.6 LAB L100.1810 11.6-14.6 % Normal RDW CV 14.2 LAB L100.1820 35.1-43.9 fl High RDW SD 46.0 LAB L100.1900 150-450 K/mm3 Normal PLT 173 LAB L100.2000 6.2-12.0 fl Normal MPV 9.3 LAB L100.2100 47-70 % High NEUT% 75.0 LAB L100.2200 19-41 % Low LY% 11.8 LAB L100.2300 0-10 % Normal MONO% 8.8 LAB L100.2400 0-5 % Normal EO% 4.0 LAB L100.2500 0-1 % Normal BASO% 0.4 LAB L100.2550 0.0-0.9 % Normal IM GRAN % 0.000 Result Comment: IG% - Immature Granulocytes (promyelocytes, myelocytes and metamyelocytes) > 1% indicates that a LEFT SHIFT is Present. LAB L100.2620 2.0-7.7 X10 3/uL Normal Absolute Neut 3.6 LAB L100.2720 0.83-4.51 X10 3/ul Low Absolute Lymph 0.56 LAB L100.4500 Normal SMEAR COMMENT SCANNED Result Comment: LYMPHOPENIA NOTED Performed By: #### L100.0100 #### [facility] [place], [address] PROGRESS Observed: 10/30/2017 Status: COMPLETED Source: [place] 9:[address] [facility] REPOSITORY HNO ID: [id number] Author: Warner Overton Service: (none) Author Type: Physician Type: Progress Notes Filed: 10/30/2017 12:38 PM Note Text: Chief Complaint Patient presents with: F/U 6 Month HPI Frantz Desai is a 72 year old male who presents here today for Chronic Medical Conditions.. Patient with Hx as reviewed and documented below. Has been doing ok., Still gets a headache about 2-3 times a week. Typically mild. Uses a Maxalt as needed and works well in 20-30 min. Past medical history, appointments, medications, allergies reviewed. Previous Medical History PAST MEDICAL HISTORY Diagnosis Date - Acid reflux - Allergic rhinitis, cause unspecified Allergic rhinitis - Enlarged prostate - Hypertrophy of prostate without urinary obstruction and other lower urinary tract symptoms (LUTS) Hypertrophy of the prostate w/o obstruction - Impaired fasting glucose 10/13/2010 - Irritable bowel syndrome Irritable bowel - Mental disorder anxiety - Migraine - Mixed hyperlipidemia Hyperlipidemia - Nontraumatic rupture of tendons of biceps (long head) 2006 right arm - Osteoarthrosis, unspecified whether generalized or localized, other specified sites Osteoarthritis Previous Surgical History PAST SURGICAL HISTORY Procedure Laterality Date - CARD CATH DIAGNOSTIC 2002 normal - COLONOSCOPY reported polyp removed - no followup indicated - COLONOSCOPY 03/09/03 R. Cecotyl. No polyps. Sigmoid diveticulosis - COLONOSCOPY 09/04/06 @ as part of [facility] physical. No polyp , repeat in 10 yrs. - COLONOSCOPY 11/27/2016 repeat 10 yrs - KNEE SCOPE,DIAGNOSTIC 2002 Arthroscopy, knee right - LAP COLECTOMY, SIGMOID W/SPEECH INSTRUCTOR 03/10/03 R. Cebul. Diverticulitis with localized perforation - REMOVAL OF TONSILS,<12 Y/O Tonsillectomy - REPAIR ING HERNIA,5+Y/O,REDUCIBL 1994 Hernia repair, inguinal - STRESS TEST 10/25/2016 negative - STRESS TEST 10/25/2016 WNL Family History FAMILY HISTORY Problem Relation Age of Onset - Cancer Mother lung- age 75 - Cancer Brother prostate diagnosed at 64 Patient Allergies ALLERGIES Allergen Reactions - Nut - Unspecified Anaphylaxis headache - Sulfa (Sulfonamide * Rash - Alcohol Other: See Comments headache - Chocolate Other: See Comments headaches Current Medications Current Outpatient Prescriptions on File Prior to Visit: sertraline (ZOLOFT) 50 mg tablet TAKE ONE AND ONE-HALF TABLETS ONCE DAILY rizatriptan (MAXALT) 10 mg tablet TAKE 1 TABLET AT ONSET OF HEADACHE, MAY REPEAT ONCE IN TWO HOURS IF NEEDED. NOT MORE THAN 2 TABLETS IN 24 HOURS simvastatin (ZOCOR) 20 mg tablet TAKE 1 TABLET DAILY AT BEDTIME etodolac (LODINE) 400 mg tablet Take 1 tablet by mouth once daily. tamsulosin ER (FLOMAX) 0.4 mg cp24 Take 1 capsule by mouth once daily. fluticasone (FLONASE) 50 mcg/actuation nasal spray Use 1 [place] in each nostril once daily. Rinse mouth after use. cetirizine (ZYRTEC) 5 mg tablet Take 1 tablet by mouth once daily. Multivitamin ORAL Tab Take one(1) tablet daily. ADULT LOW DOSE ASPIRIN 81 MG TAB, DELAYED RELEASE Take one(1) tablet daily. No current facility-administered medications on file prior to visit. Social History Social History Marital status: Spouse name: Emmanuelle Years of education: Number of children: 2 Occupational History Occupation Employer Comment [employer]- retired [employer]* Social History Main Topics Smoking status: Former Smoker Packs/day: 0.00 Years: 0.00 Types: Cigarettes Smokeless tobacco: Former User Comment: last smoked 20 years ago (age 39). Smoked for 25 years Alcohol use: No Drug use: No Sexual activity: Yes Partners with: Female Review of Symptoms REVIEW OF SYSTEMS GENERAL: No weight loss, malaise or fevers NECK: Negative for lumps, goiter, pain and significant neck swelling RESPIRATORY: Negative for cough, hemoptysis, wheezing, COPD, dyspnea or shortness of breath CARDIOVASCULAR: Negative for chest pain, leg swelling, hypertension, CHF or palpitations GI: No nausea, vomiting, or diarrhea and No heartburn or reflux symptoms. Has been having some discomfort off and on in the LUG. No burning up into the throat. NEURO: No history of syncope, paralysis, seizures or tremors. See HPI regarding ALVAREZ's EXAM: BP 134/78 Pulse 68 Temp 36.1 ?C (96.9 ?F) (Left Tympanic) Resp 12 Wt 81.2 kg (179 lb) BMI 29.33 kg/m? General Appearance: Well appearing, alert, in no acute distress, well-hydrated, well nourished.. Neck: Supple, no adenopathy; thyroid symmetric, normal size, no bruits. Lungs: Lungs clear to auscultation. No wheezing, rhonchi, rales. Heart: RRR without murmur, gallop, or rubs. No ectopy. Abdomen: Normal abdominal exam, Abdomen soft, non-tender. Bowel sounds normal. No masses, organomegaly. Extremities: No deformities, edema. Peripheral Pulses: Normal. Health Maintenance List DTAP,TDAP,TD(1 - Tdap) due on 1963 DIABETES SCREEN due on 10/25/2020 LIPID SCREEN due on 10/25/2022 COLORECTAL CANCER SCREENING,SEE MODIFIER due on 11/27/2026 PROSTATE CANCER SCREENING DISCUSSION Completed ADULT PREVNAR-13 Completed INFLUENZA Completed HEPATITIS C SCREENING Completed PNEUMOVAX AGE 65 AND OVER WITH 5YR LOOKBACK Completed Data reviewed Component Latest Ref Rng AND Units 03/20/2016 09/17/2016 10/25/2017 Protein, Total 6.3 - 8.0 g/dL 6.6 7.0 Albumin 3.9 - 4.9 g/dL 3.8 (L) 4.1 Calcium 8.5 - 10.2 mg/dL 8.8 9.0 Bilirubin, Total 0.2 - 1.3 mg/dL 0.6 0.6 Alkaline Phosphatase 36 - 108 U/L 50 53 AST 14 - 40 U/L 20 23 Glucose 74 - 99 mg/dL 102 (H) 94 BUN 9 - 24 mg/dL 20 23 Creatinine 0.73 - 1.22 mg/dL 0.92 0.93 Sodium 136 - 144 mmol/L 141 142 Potassium 3.7 - 5.1 mmol/L 4.3 4.4 Chloride 97 - 105 mmol/L 104 103 CO2 22 - 30 mmol/L 28 27 Anion Gap 9 - 18 mmol/L 9 12 ALT 10 - 54 U/L 12 17 eGFR- >60 >60 eGFR-All Other Races . >60 >60 Color Yellow Yellow Clarity Clear Cloudy (A) Glucose, Urine Negative mg/dL Negative Bilirubin, Urine Negative Negative Ketones, Urine Negative Negative Specific [place], Ur 1.005 - 1.030 1.020 Hemoglobin/Blood,Ur Negative Negative pH, Urine 4.5 - 8.0 7.0 Protein, Urine Negative mg/dL Negative Urobilinogen Normal Elevated (A) Nitrites Negative Negative Leukest Negative Negative Comments SEE COMMENT Urine Marlon Comment SEE COMMENT WBC, Urine 0 - 5 /HPF 0-5 RBC, Urine 0 - 3 /HPF 0-3 Epithelial Cells /HPF SEE COMMENT Triglyceride <150 mg/dL 48 61 Cholesterol, Total <200 mg/dL 167 177 HDL Cholesterol >39 mg/dL 60 63 VLDL Cholesterol <30 mg/dL 10 12 LDL Cholesterol <100 mg/dL 97 102 (H) Fasting Time hrs 12 10 TC:HDL Ratio <5.10 2.78 2.81 LDL:HDL Ratio <2.54 1.62 1.62 Non HDL Cholesterol <130 mg/dL 107 114 Hemoglobin A1C 4.3 - 5.6 % 5.7 (H) 5.4 Estimated Average Glucose mg/dL 117 108 A/P ASSESSMENT/PLAN: 1. Mixed hyperlipidemia - ICD9: 272.2, ICD10: E78.2 (primary diagnosis) - good control - Continue current dose of simvastatin (Zocor) 20 mg. - Encouraged following a low fat, low cholesterol diet. - Discussed the benefits of regular aerobic exercise and weight loss. - Encouraged following a low carbohydrate, healthy oil intake diet. 2. Impaired fasting glucose - ICD9: 790.21, ICD10: R73.01 - Improved numbers. Patient to cont dietary changes. 3. Cluster headache, not intractable, unspecified chronicity pattern - ICD9: 339.00, ICD10: G44.009 - Discussed trying fish oill 1000 mg twice a day. Magnesium oxid 250 mg twice a day and Vit B2 200 mg twice a day - 1 litter of water a day. - Cont prn maxalt 4. Generalized anxiety disorder - ICD9: 300.02, ICD10: F41.1 - Stable with the zoloft 5. Malignant melanoma, unspecified site (HCC) - ICD9: 172.9, ICD10: C43.9 - Cont Derm f/u 6. GERD with esophagitis - ICD9: 530.11, ICD10: K21.0 - discussed dietary changes along with prn use pf tums. If not better discussed adding on Zantac 7. Prostate cancer (HCC) - ICD9: 185, ICD10: C61 - Cont urology f/u f/u 6 months WAE check FLP and A1c prior. Warner Overton MD CNOV Observed: 10/30/2017 Status: COMPLETED Source: [place] 9:00 AM [facility] REPOSITORY Office Visit (FAMPWS) FRANTZ DESAI ([id number]) 1945 M Date Time Provider Department 10/30/17 9:00 AM [facility]ER OVERTON [facility] During your visit today, we recorded the following information about you: Temperature Pulse Respiration Blood pressure 96.9 degrees 68/minute 12/minute 134/78 Weight 81.2 kg Warner Overton MD 10/30/2017 12:38 PM Signed Chief Complaint Patient presents with: F/U 6 Month HPI Frantz Desai is a 72 year old male who presents here today for Chronic Medical Conditions.. Patient with Hx as reviewed and documented below. Has been doing ok., Still gets a headache about 2-3 times a week. Typically mild. Uses a Maxalt as needed and works well in 20-30 min. Past medical history, appointments, medications, allergies reviewed. Previous Medical History PAST MEDICAL HISTORY Diagnosis Date - Acid reflux - Allergic rhinitis, cause unspecified Allergic rhinitis - Enlarged prostate - Hypertrophy of prostate without urinary obstruction and other lower urinary tract symptoms (LUTS) Hypertrophy of the prostate w/o obstruction - Impaired fasting glucose 10/13/2010 - Irritable bowel syndrome Irritable bowel - Mental disorder anxiety - Migraine - Mixed hyperlipidemia Hyperlipidemia - Nontraumatic rupture of tendons of biceps (long head) 2006 right arm - Osteoarthrosis, unspecified whether generalized or localized, other specified sites Osteoarthritis Previous Surgical History PAST SURGICAL HISTORY Procedure Laterality Date - CARD CATH DIAGNOSTIC 2002 normal - COLONOSCOPY reported polyp removed - no followup indicated - COLONOSCOPY 03/09/03 Ashleigh Choebul. No polyps. Sigmoid diveticulosis - COLONOSCOPY 09/04/06 @ [facility]. No polyp , repeat in 10 yrs. - COLONOSCOPY 11/27/2016 repeat 10 yrs - KNEE SCOPE,DIAGNOSTIC 2002 Arthroscopy, knee right - LAP COLECTOMY, SIGMOID W/SPEECH INSTRUCTOR 03/10/03 Ashleigh Levin. Diverticulitis with localized perforation - REMOVAL OF TONSILS,<12 Y/O Tonsillectomy - REPAIR ING HERNIA,5+Y/O,REDUCIBL 1994 Hernia repair, inguinal - STRESS TEST 10/25/2016 negative - STRESS TEST 10/25/2016 WNL Family History FAMILY HISTORY Problem Relation Age of Onset - Cancer Mother lung- age 75 - Cancer Brother prostate diagnosed at 64 Patient Allergies ALLERGIES Allergen Reactions - Nut - Unspecified Anaphylaxis headache - Sulfa (Sulfonamide * Rash - Alcohol Other: See Comments headache - Chocolate Other: See Comments headaches Current Medications Current Outpatient Prescriptions on File Prior to Visit: sertraline (ZOLOFT) 50 mg tablet TAKE ONE AND ONE-HALF TABLETS ONCE DAILY rizatriptan (MAXALT) 10 mg tablet TAKE 1 TABLET AT ONSET OF HEADACHE, MAY REPEAT ONCE IN TWO HOURS IF NEEDED. NOT MORE THAN 2 TABLETS IN 24 HOURS simvastatin (ZOCOR) 20 mg tablet TAKE 1 TABLET DAILY AT BEDTIME etodolac (LODINE) 400 mg tablet Take 1 tablet by mouth once daily. tamsulosin ER (FLOMAX) 0.4 mg cp24 Take 1 capsule by mouth once daily. fluticasone (FLONASE) 50 mcg/actuation nasal spray Use 1 [place] in each nostril once daily. Rinse mouth after use. cetirizine (ZYRTEC) 5 mg tablet Take 1 tablet by mouth once daily. Multivitamin ORAL Tab Take one(1) tablet daily. ADULT LOW DOSE ASPIRIN 81 MG TAB, DELAYED RELEASE Take one(1) tablet daily. No current facility-administered medications on file prior to visit. Social History Social History Marital status: Spouse name: Emmanuelle Years of education: Number of children: 2 Occupational History Occupation Employer Comment [employer]- retired [employer]* Social History Main Topics Smoking status: Former Smoker Packs/day: 0.00 Years: 0.00 Types: Cigarettes Smokeless tobacco: Former User Comment: last smoked 20 years ago (age 39). Smoked for 25 years Alcohol use: No Drug use: No Sexual activity: Yes Partners with: Female Review of Symptoms REVIEW OF SYSTEMS GENERAL: No weight loss, malaise or fevers NECK: Negative for lumps, goiter, pain and significant neck swelling RESPIRATORY: Negative for cough, hemoptysis, wheezing, COPD, dyspnea or shortness of breath CARDIOVASCULAR: Negative for chest pain, leg swelling, hypertension, CHF or palpitations GI: No nausea, vomiting, or diarrhea and No heartburn or reflux symptoms. Has been having some discomfort off and on in the LUG. No burning up into the throat. NEURO: No history of syncope, paralysis, seizures or tremors. See HPI regarding ALVAREZ's EXAM: BP 134/78 Pulse 68 Temp 36.1 ?C (96.9 ?F) (Left Tympanic) Resp 12 Wt 81.2 kg (179 lb) BMI 29.33 kg/m? General Appearance: Well appearing, alert, in no acute distress, well-hydrated, well nourished.. Neck: Supple, no adenopathy; thyroid symmetric, normal size, no bruits. Lungs: Lungs clear to auscultation. No wheezing, rhonchi, rales. Heart: RRR without murmur, gallop, or rubs. No ectopy. Abdomen: Normal abdominal exam, Abdomen soft, non-tender. Bowel sounds normal. No masses, organomegaly. Extremities: No deformities, edema. Peripheral Pulses: Normal. Health Maintenance List DTAP,TDAP,TD(1 - Tdap) due on 1963 DIABETES SCREEN due on 10/25/2020 LIPID SCREEN due on 10/25/2022 COLORECTAL CANCER SCREENING,SEE MODIFIER due on 11/27/2026 PROSTATE CANCER SCREENING DISCUSSION Completed ADULT PREVNAR-13 Completed INFLUENZA Completed HEPATITIS C SCREENING Completed PNEUMOVAX AGE 65 AND OVER WITH 5YR LOOKBACK Completed Data reviewed Component Latest Ref Rng AND Units 03/20/2016 09/17/2016 10/25/2017 Protein, Total 6.3 - 8.0 g/dL 6.6 7.0 Albumin 3.9 - 4.9 g/dL 3.8 (L) 4.1 Calcium 8.5 - 10.2 mg/dL 8.8 9.0 Bilirubin, Total 0.2 - 1.3 mg/dL 0.6 0.6 Alkaline Phosphatase 36 - 108 U/L 50 53 AST 14 - 40 U/L 20 23 Glucose 74 - 99 mg/dL 102 (H) 94 BUN 9 - 24 mg/dL 20 23 Creatinine 0.73 - 1.22 mg/dL 0.92 0.93 Sodium 136 - 144 mmol/L 141 142 Potassium 3.7 - 5.1 mmol/L 4.3 4.4 Chloride 97 - 105 mmol/L 104 103 CO2 22 - 30 mmol/L 28 27 Anion Gap 9 - 18 mmol/L 9 12 ALT 10 - 54 U/L 12 17 eGFR- >60 >60 eGFR-All Other Races . >60 >60 Color Yellow Yellow Clarity Clear Cloudy (A) Glucose, Urine Negative mg/dL Negative Bilirubin, Urine Negative Negative Ketones, Urine Negative Negative Specific [place], Ur 1.005 - 1.030 1.020 Hemoglobin/Blood,Ur Negative Negative pH, Urine 4.5 - 8.0 7.0 Protein, Urine Negative mg/dL Negative Urobilinogen Normal Elevated (A) Nitrites Negative Negative Leukest Negative Negative Comments SEE COMMENT Urine Marlon Comment SEE COMMENT WBC, Urine 0 - 5 /HPF 0-5 RBC, Urine 0 - 3 /HPF 0-3 Epithelial Cells /HPF SEE COMMENT Triglyceride <150 mg/dL 48 61 Cholesterol, Total <200 mg/dL 167 177 HDL Cholesterol >39 mg/dL 60 63 VLDL Cholesterol <30 mg/dL 10 12 LDL Cholesterol <100 mg/dL 97 102 (H) Fasting Time hrs 12 10 TC:HDL Ratio <5.10 2.78 2.81 LDL:HDL Ratio <2.54 1.62 1.62 Non HDL Cholesterol <130 mg/dL 107 114 Hemoglobin A1C 4.3 - 5.6 % 5.7 (H) 5.4 Estimated Average Glucose mg/dL 117 108 A/P ASSESSMENT/PLAN: 1. Mixed hyperlipidemia - ICD9: 272.2, ICD10: E78.2 (primary diagnosis) - good control - Continue current dose of simvastatin (Zocor) 20 mg. - Encouraged following a low fat, low cholesterol diet. - Discussed the benefits of regular aerobic exercise and weight loss. - Encouraged following a low carbohydrate, healthy oil intake diet. 2. Impaired fasting glucose - ICD9: 790.21, ICD10: R73.01 - Improved numbers. Patient to cont dietary changes. 3. Cluster headache, not intractable, unspecified chronicity pattern - ICD9: 339.00, ICD10: G44.009 - Discussed trying fish oill 1000 mg twice a day. Magnesium oxid 250 mg twice a day and Vit B2 200 mg twice a day - 1 litter of water a day. - Cont prn maxalt 4. Generalized anxiety disorder - ICD9: 300.02, ICD10: F41.1 - Stable with the zoloft 5. Malignant melanoma, unspecified site (HCC) - ICD9: 172.9, ICD10: C43.9 - Cont Derm f/u 6. GERD with esophagitis - ICD9: 530.11, ICD10: K21.0 - discussed dietary changes along with prn use pf tums. If not better discussed adding on Zantac 7. Prostate cancer (HCC) - ICD9: 185, ICD10: C61 - Cont urology f/u f/u 6 months WAE check FLP and A1c prior. MD Warner Duran MD 10/30/2017 9:35 AM Signed For headache's start taking: fish oill 1000 mg twice a day. Magnesium oxid 250 mg twice a day and Vit B2 200 mg twice a day. Also try to get 1 liter of water a day. Please get fasting labs on or after 04/18/2018 prior to next visit. Referring Provider: WARNER OVERTON [[id number]] Allergies As of Date: 10/30/2017 Noted Allergy Reaction NUT - UNSPECIFIED 07/06/2009 10 - Anaphylaxis Comments: headache SULFA (SULFONAMIDE ANTIBIOTICS) 04/16/2005 2 - Rash ALCOHOL 07/06/2009 14 - Other: See Comments Comments: headache CHOCOLATE 07/06/2009 14 - Other: See Comments Comments: headaches Date Reviewed: 10/30/2017 Reviewed by: Warner Overton - Fully Assessed Reason for Visit: F/U 6 Month [444] Primary Visit Diagnosis:Mixed hyperlipidemia [E78.2] Other Visit Diagnoses:Impaired fasting glucose [R73.01] Cluster headache, not intractable, unspecified chronicity pattern [G44.009] Generalized anxiety disorder [F41.1] Malignant melanoma, unspecified site (HCC) [C43.9] GERD with esophagitis [K21.0] Prostate cancer (HCC) [C61] Order(s):HGB A1C [[id number]] Order #: [id number] FUTURE LIPID PANEL BASIC [SQLIPB] Order #: [id number] FUTURE Prescriptions as of 10/30/2017 Sig: SERTRALINE 50 MG TABLET TAKE ONE AND ONE-HALF TABLETS* RIZATRIPTAN 10 MG TABLET TAKE 1 TABLET AT ONSET OF HEA* SIMVASTATIN 20 MG TABLET TAKE 1 TABLET DAILY AT BEDTIME ETODOLAC 400 MG TABLET Take 1 tablet by mouth once d* TAMSULOSIN 0.4 MG CAPSULE Take 1 capsule by mouth once * FLUTICASONE 50 MCG/ACTUATION * Use 1 [place] in each nostril o* CETIRIZINE 5 MG TABLET Take 1 tablet by mouth once d* MULTIVITAMIN TABLET Take one(1) tablet daily. ADULT LOW DOSE ASPIRIN 81 MG * Take one(1) tablet daily. Problem List As Of Date 10/30/2017 Noted Resolved Osteoarthrosis, unspecified whether generalized*INVALID FOR* Priority: M Mixed hyperlipidemia [E78.2] INVALID FOR* Priority: A DISC DEGENERATION NOS [[id number]] INVALID FOR* Priority: M Cough [R05] INVALID FOR*07/06/2009 More... More... Colon polyps [K63.5] INVALID FOR* Priority: C More... Spinal stenosis, lumbar [M48.061] INVALID FOR* Priority: M Melanoma [C43.9] INVALID FOR* Priority: A More... Impaired fasting glucose [R73.01] INVALID FOR* Priority: A Family history of prostate cancer [Z80.42] INVALID FOR* Priority: F Prostate cancer (HCC) [C61] INVALID FOR* Priority: C More... Well adult exam [Z00.00] INVALID FOR* Priority: E More... Irritable bowel syndrome without diarrhea [K58.*INVALID FOR* Priority: C Allergic rhinitis [J30.9] INVALID FOR* Priority: B Benign non-nodular prostatic hyperplasia withou*INVALID FOR* Priority: C Cluster headache, not intractable [G44.009] INVALID FOR* Priority: A More... Generalized anxiety disorder [F41.1] INVALID FOR* Priority: A Hiatal hernia [K44.9] INVALID FOR* Priority: A GERD with esophagitis [K21.0] INVALID FOR* Priority: A Medicare annual wellness visit, subsequent [Z00*INVALID FOR* Priority: E More... Other instructions from your clinician: For headache's start taking: fish oill 1000 mg twice a day. Magnesium oxid 250 mg twice a day and Vit B2 200 mg twice a day. Also try to get 1 liter of water a day. Please get fasting labs on or after 04/18/2018 prior to next visit. Disposition: Return in about 6 months (around 05/02/2018) for complete /medicare wellness. Follow-up and Disposition History Recorded Encounter Status:Closed by WARNER OVERTON on 10/30/17 COMP METABOLIC PANEL Collected: 10/25/2017 Status: F Source: [place] 8:[address] [facility] REPOSITORY TYPE CODE TESTS RESULT OUT OF REFERENCE UNITS RANGE LAB TP 6.3-8.0 g/dL Protein, Total 7.0 LAB ALB 3.9-4.9 g/dL Albumin 4.1 LAB CA 8.5-10.2 mg/dL Calcium, Total 9.0 LAB TBIL 0.2-1.3 mg/dL Bilirubin, Total 0.6 LAB ALKP 36-108 U/L Alkaline Phosphatase 53 LAB AST 14-40 U/L AST 23 LAB GLU 74-99 mg/dL Glucose 94 Result Comment: The [place] Diabetes Association (ADA) provides guidance for cutoff values for fasting glucose and random glucose. The ADA defines fasting as no caloric intake for at least 8 hours. Fas ting plasma glucose results between 100 to 125 mg/dL indicate increased risk for diabetes (prediabetes). Fasting plasma glucose results greater than or equal to 126 mg/dL meet the criteria for diagnosis of diabetes. In the absence of unequivocal hyperglycemia, results should be confirmed by repeat testing. In a patient with classic symptoms of hyperglycemia or hyperglycemic crisis, random plasma glucose results greater than or equal to 200 mg/dL meet the criteria for diagnosis of diabetes. Reference: Standards of Medical Care in Diabetes 2016, [place] Diabetes Association. Diabetes Care. 2016.39(Suppl 1). LAB BUN 9-24 mg/dL BUN 23 LAB CRET 0.73-1.22 mg/dL Creatinine 0.93 LAB NA 136-144 mmol/L Sodium 142 LAB K 3.7-5.1 mmol/L Potassium 4.4 LAB CL 97-105 mmol/L Chloride 103 LAB CO2 22-30 mmol/L CO2 27 LAB AGAP 9-18 mmol/L Anion Gap 12 LAB ALT 10-54 U/L ALT 17 LAB GFRAA eGFR- Amer. >60 LAB GFRNAA . eGFR-All Other Races >60 Result Comment: eGFR (Estimated GFR) Units of measure: mL/min/1.73 meters squared eGFR is derived from the reexpressed MDRD Study equation using the following parameters: serum creatinine, age, gender and race. The creatinine assay has been calibrated to be traceable to IDMS. An eGFR <60 mL/min/1.73m2 for >3 months is consistent with chronic kidney disease. Refer to KDOQI guidelines for clinical interpretation. In patients with unstable renal function, e.g. those with acute kidney injury, the eGFR may not accurately reflect actual GFR. Performed By: #### CMP, LIPB, HBA1C #### [facility] [address] [place], [place] [address] LIPID PANEL, BASIC Collected: 10/25/2017 Status: F Source: [place] 8:[address] [facility] REPOSITORY TYPE CODE TESTS RESULT OUT OF REFERENCE UNITS RANGE LAB CHOL <200 mg/dL Cholesterol 177 Result Comment: <200 mg/dL, Desirable 200-239 mg/dL, Borderline high >239 mg/dL, High LAB TRIGLY <150 mg/dL Triglyceride 61 Result Comment: <150 mg/dL, Normal 150-199 mg/dL, Borderline high 200-499 mg/dL, High >499 mg/dL, Very high LAB HDL >39 mg/dL HDL-Cholesterol 63 Result Comment: 40-59 mg/dL, Acceptable >59 mg/dL, High: Negative risk factor for coronary heart disease <40 mg/dL, Low: Positive risk factor for coronary heart disease LAB LDL <100 mg/dL LDL-Cholesterol High 102 Result Comment: <100 mg/dL, Optimal 100-129 mg/dL, Near optimal/above optimal 130-159 mg/dL, Borderline high 160-189 mg/dL, High >189 mg/dL, Very high Secondary prevention optimal LDL Cholesterol levels are recommended to be < 70 mg/dL LAB NONHDL <130 mg/dL Non HDL Cholesterol 114 Result Comment: <130 mg/dL, Optimal 130-159 mg/dL, Near optimal/above optimal 160-189 mg/dL, Borderline high 190-219 mg/dL, High >219 mg/dL, Very high Secondary prevention optimal non HDL Cholesterol levels are recommended to be < 100 mg/dL LAB FT hrs Fasting Time 10 LAB VLDL <30 mg/dL VLDL Cholesterol 12 LAB TCHDL <5.10 TC:HDL Ratio 2.81 LAB LDLHDL <2.54 LDL:HDL Ratio 1.62 Result Comment: Reference: 1. National Cholesterol Education Program ATP III Guideline At-A-Glance Quick Desk Reference: National Heart, Lung, and Blood [place]. National Institutes of Health. 2001: NIH Publication No. 01-3305. 2. An International Atherosclerosis Society position paper: global recommendations for the management of dyslipidemia: executive summary, Atherosclerosis. 2014: 232(2):410-413. Performed By: #### CMP, LIPB, HBA1C #### [facility] [address], [place] [address] HEMOGLOBIN A1C Collected: 10/25/2017 Status: F Source: [place] 8:53 AM [facility] REPOSITORY TYPE CODE TESTS RESULT OUT OF REFERENCE UNITS RANGE LAB HGBA1C 4.3-5.6 % Hemoglobin A1c 5.4 LAB HBA0 mg/dL Est. Average Glucose 108 Result Comment: eAG: (Estimated average glucose) is a calculated value from HgbA1c and is financial service representative of the average blood glucose level in the last 2-3 month period. Performed By: #### CMP, LIPB, HBA1C #### [facility] [address] [place], [place] [address] URINALYSIS WITH Collected: 10/25/2017 Status: F Source: [facility] 8:48 AM [facility] REPOSITORY TYPE CODE TESTS RESULT OUT OF RANGE REFERENCE UNITS LAB UCOL Yellow Color Yellow LAB [facility] Clear Clarity Abnormal Cloudy Alert LAB UGLUC Negative mg/dL Glucose, Urine Negative LAB UBIL Negative Bilirubin, Urine Negative LAB UKET Negative Ketones, Urine Negative LAB USPG 1.005-1.030 Specific [place], Ur 1.020 LAB UHGB Negative Hemoglobin/Blood, Negative Ur LAB UPH 4.5-8.0 pH 7.0 LAB UPROT Negative mg/dL Protein, Urine Negative LAB UUROB Normal Abnormal Urobilinogen Elevated Alert LAB UNITR Negative Nitrites Negative LAB ULKEST Negative Leukest Negative LAB UCOM Comments SEE COMMENT Result Comment: N/A LAB UMCOM Urine SEE Marlon Comment COMMENT Result Comment: N/A LAB UWBC 0-5 /HPF WBC 0-5 LAB URBC 0-3 /HPF RBC 0-3 LAB UEPI /HPF Epithelial SEE Cells COMMENT Result Comment: Few Squamous Epithelial Cells Performed By: #### UAWMIC #### [facility] [address] [place] [id number] CNPTOUTREACH Observed: 10/15/2017 Status: COMPLETED Source: [place] 12:00 AM [facility] REPOSITORY Patient Outreach ([facility]) FRANTZ DESAI ([id number]) 1945 M Date Time Provider Department 10/15/17 [facility] During your visit today, we recorded the following information about you: Allergies As of Date: 10/15/2017 Noted Allergy Reaction ALCOHOL 07/06/2009 Comments: headache CHOCOLATE 07/06/2009 Comments: headaches NUT - UNSPECIFIED 07/06/2009 10 - Anaphylaxis Comments: headache SULFA (SULFONAMIDE ANTIBIOTICS) 04/16/2005 2 - Rash Date Reviewed: 06/13/2017 Reviewed by: Warner Overton - Fully Assessed Primary Visit Diagnosis:Mixed hyperlipidemia [E78.2] Other Visit Diagnosis:Medication management [Z79.899] Order(s):HGB A1C [[id number]] Order #: [id number] FUTURE LIPID PANEL BASIC [SQLIPB] Order #: [id number] FUTURE COMP METABOLIC PANEL [SQCMP] Order #: [id number] FUTURE URINALYSIS WITH MICROSCOPIC [SQUAWMIC] Order #: [id number] FUTURE Prescriptions as of 10/15/2017 Sig: SERTRALINE 50 MG TABLET TAKE ONE AND ONE-HALF TABLETS* X RIZATRIPTAN 10 MG TABLET TAKE 1 TABLET AT ONSET OF HEA* X SIMVASTATIN 20 MG TABLET TAKE 1 TABLET DAILY AT BEDTIME ETODOLAC 400 MG TABLET Take 1 tablet by mouth once d* X TAMSULOSIN 0.4 MG CAPSULE Take 1 capsule by mouth once * X FLUTICASONE 50 MCG/ACTUATION * Use 1 [place] in each nostril o* X CETIRIZINE 5 MG TABLET Take 1 tablet by mouth once d* MULTIVITAMIN TABLET Take one(1) tablet daily. ADULT LOW DOSE ASPIRIN 81 MG * Take one(1) tablet daily. Problem List As Of Date 10/15/2017 Noted Resolved Osteoarthrosis, unspecified whether generalized*INVALID FOR* Priority: M Mixed hyperlipidemia [E78.2] INVALID FOR* Priority: A DISC DEGENERATION NOS [TPF6733] INVALID FOR* Priority: M Cough [R05] INVALID FOR*07/06/2009 More... More... Colon polyps [K63.5] INVALID FOR* Priority: C More... Spinal stenosis, lumbar [M48.061] INVALID FOR* Priority: M Melanoma [C43.9] INVALID FOR* Priority: A More... Impaired fasting glucose [R73.01] INVALID FOR* Priority: A Family history of prostate cancer [Z80.42] INVALID FOR* Priority: F Prostate cancer (HCC) [C61] INVALID FOR* Priority: C More... Well adult exam [Z00.00] INVALID FOR* Priority: E More... Irritable bowel syndrome without diarrhea [K58.*INVALID FOR* Priority: C Allergic rhinitis [J30.9] INVALID FOR* Priority: B Benign non-nodular prostatic hyperplasia withou*INVALID FOR* Priority: C Cluster headache, not intractable [G44.009] INVALID FOR* Priority: A More... Generalized anxiety disorder [F41.1] INVALID FOR* Priority: A Hiatal hernia [K44.9] INVALID FOR* Priority: A GERD with esophagitis [K21.0] INVALID FOR* Priority: A Medicare annual wellness visit, subsequent [Z00*INVALID FOR* Priority: E More... Encounter Status:Closed by ONEPLE, PRODUSER on 03/21/18 ALLERGIES ALLERGIES DATE TYPE / NAME / CODE REACTION SEVERITY SOURCE CODE 06/24/2018 Drug Sulfa Unknown Unknown [place] Allergy/41 (Sulfonamide Community 1556324(SN Antibiotics)/F001 [facility] OMED CT) 491803(RXNORM) Repository 07/06/2009 DRUG NUT - UNSPECIFIED ANAPHYLAXIS High [address] 7913285(SN Repository OMED CT) 07/06/2009 DRUG ALCOHOL OTHER: SEE C [address] 0883098(SN Repository OMED CT) 07/06/2009 Food/41446 CHOCOLATE OTHER: SEE C [facility] 1000(SNOME [place] D CT) Repository 07/06/2009 DRUG ALCOHOL [address] 5112623(SN Repository OMED CT) 07/06/2009 Food/13736 CHOCOLATE [facility] 1000(SNOME [place] D CT) Repository 07/06/2009 DRUG NUT - UNSPECIFIED ANAPHYLAXIS [address] 6004265(SN Repository OMED CT) 04/16/2005 Drug SULFA RASH Med [facility] Class/4195 (SULFONAMIDE [place] [address](SNOM ANTIBIOTICS) Repository ED CT) 04/16/2005 Drug SULFA RASH [facility] Class/4195 (SULFONAMIDE [place] [address](SNOM ANTIBIOTICS) Repository ED CT) ENCOUNTERS ENCOUNTERS ADMIT/DISCHARGE ACCOUNT ADMITTING ENCOUNTER LOCATION SOURCE NUMBER CLASS 06/27/2018/06/30/19 [id number] Ambulatory [address] [place] Repository 06/24/2018/06/24/19 [id number] Emergency [address] ing:ED Repository 06/23/2018 [id number] Ambulatory [facility] ing:LAB Repository 06/18/2018 [id number] Ambulatory [facility] ing:SDC Repository 05/28/2018/05/28/20 [id number] Ambulatory BMSBuilding:B Reba [facility] Repository 05/22/2018 [id number] Ambulatory [facility] ing:LABSPEC Repository 04/24/2018/04/24/20 [id number] Ambulatory BMSBuilding:B [place] [facility] Repository 02/09/2018/02/12/20 [id number] Ambulatory [address] Repository 02/04/2018/02/05/20 [id number] Ambulatory [address] ing:EN Repository 02/04/2018 [id number] Ambulatory BMSBuilding:B Reba MS.[facility] Repository 01/28/2018 [id number] Ambulatory [facility] ing:LABSPEC Repository 01/23/2018 [id number] Ambulatory [facility] ing:LAB Repository 01/17/2018/01/18/20 [id number] [facility] [facility] 01/08/2018/01/10/20 [id number] Ambulatory [address] Repository 12/31/2017/01/02/20 [id number] Ambulatory [address] Repository 12/27/2017 [id number] Ambulatory [facility] ing:LAB Repository 11/14/2017/11/15/19 [id number] Emergency [address] ing:ED Repository 10/30/2017/11/01/19 [id number] Ambulatory [address] Repository 10/25/2017/10/26/19 [id number] Ambulatory [address] Repository PAYERS PAYERS ENCOUNTER GUARANTOR PAYER SUBSCRIBER SOURCE 06/24/2018 FRANTZ Ashton Primary Insurance:MMO FRANTZ Britton [id number] MEDICAREPolicy WALTONDOB: [facility] Number: [id number], [place] [id number] Repository 87131Ljc: (330) Date:4797-35-50AE [phone] () [address] [place] [phone]: 06/24/2018 Secondary NOT GIVENUNK [place]oy Insurance:SELF PAY [facility] Number: Effective Repository Date:2018-06-24 06/23/2018 FRANTZ Ashton Primary Insurance:MMO [id number] MEDICAREPolicy WALTONDOB: [facility] Number: [id number], [place] [id number] Repository 49[address]Uxn: (330) Date:6638-78-43IQ [phone] () [address] [place] [phone]: 06/23/2018 Secondary NOT GIVENUNK El[place] Insurance:SELF PAY [facility] Number: Effective Repository Date:2018-06-23 06/18/2018 FRANTZ Ashton Primary Insurance:MMO FRANTZ Britton [id number] MEDICAREPolicy WALTONDOB: [facility] Number: [id number], [place] [id number] Repository 48754Nvo: (330) Date:4593-41-53SD [phone] (HP) [address] [place] [phone]: 06/18/2018 Secondary NOT GIVENUNK Eloy Insurance:SELF PAY [facility] Number: Effective Repository Date:2018-06-06 05/28/2018 FRANTZ Ashton Primary Insurance:MMO FRANTZ Britton [id number] MEDICAREPolicy WALTONDOB: [facility] Number: [id number], [place] [id number] Repository 56213Lpu: (330) Date:1643-96-54XE [phone] (HP) [address] [place] [phone]: 05/28/2018 Secondary NOT GIVENUNK [place] Insurance:SELF PAY [facility] Number: Effective Repository Date:2018-05-28 05/22/2018 FRANTZ Ashton Primary Insurance:MMO FRANTZ [id number] MEDICAREPolicy WALTONDOB: [facility] Number: [id number], [place] [id number] Repository 13522Han: (330) Date:2224-47-36EU [phone] (HP) [address] [place] [phone]: 05/22/2018 Secondary NOT GIVENUNK Reba Insurance:SELF PAY [facility] Number: Effective Repository Date:2018-05-22 04/24/2018 FRANTZ Ashton Primary Insurance:MMO FRANTZ Britton [id number] MEDICAREPolicy WALTONDOB: [facility] Number: [id number], [place] [id number] Repository 13866Ies: (330) Date:3856-60-22IX [phone] (HP) [address] [place] [phone]: 04/24/2018 Secondary NOT GIVENUNK Reba Insurance:SELF PAY [facility] Number: Effective Repository Date:2018-04-24 02/04/2018 FRANTZ Ashton Primary Insurance:MMO FRANTZ Ashton Eloy [id number] MEDICAREPolicy WALTONDOB: [facility] Number: [id number], [place] [id number] Repository 29274Agk: (330) Date:1552-37-26EQ [phone] () [address] [place] [phone]: 02/04/2018 Secondary NOT GIVENUNK Eloy Insurance:SELF PAY [facility] Number: Effective Repository Date:2018-01-21 02/04/2018 FRANTZ Ashton Primary Insurance:MMO FRANTZ Ashton Reba [id number] MEDICAREPolicy WALTONDOB: [facility] Number: [id number], [place] [id number] Repository 67487Jjg: (330) Date:8336-50-59LK [phone] () [address] [place] [phone]: 02/04/2018 Secondary NOT GIVENUNK Eloy Insurance:SELF PAY [facility] Number: Effective Repository Date:2018-02-04 01/28/2018 FRANTZ Ashton Primary Insurance:MMO FRANTZ Ashton El[place] [id number] MEDICAREPolicy WALTONDOB: [facility] Number: [id number], [place] [id number] Repository 48989Vvg: (330) Date:2844-01-03WY [phone] () [place], [place] [phone]: 01/28/2018 Secondary NOT GIVENUNK Eloy Insurance:SELF PAY [facility] Number: Effective Repository Date:2018-01-28 01/23/2018 FRANTZ Ashton Primary Insurance:MMO FRANTZ Ashton Reba [id number] MEDICAREPolicy WALTONDOB: [facility] Number: [id number], [place] [id number] Repository 26[address]Eos: (330) Date:6578-67-75YJ [phone] (HP) [address] [place] [phone]: 01/23/2018 Secondary NOT GIVENUNK Reba Insurance:SELF PAY [facility] Number: Effective Repository Date:2018-01-23 01/17/2018 FRANTZ Ashton Primary Insurance:MMO FRANTZ Poli Reba [id number] MEDICAREPolicy WALTONDOB: [facility] Number: [id number], [place] [id number] Repository 829[address]Pqb: (330) Date:8911-19-86OP [phone] (HP) [address] [place] [phone]: 01/17/2018 Secondary NOT GIVENUNK Reba Insurance:SELF PAY [facility] Number: Effective Repository Date:2018-01-15 12/27/2017 Frantz Ashton Primary Insurance:MMO Frantz Ashton Eloy [id number] MEDICAREPolicy WaltonDOB: [facility] Number: [id number], [place] [id number] Repository 21998Ngm: (330) Date:6310-05-44SO [phone] () [address] [place] [phone]: 12/27/2017 Secondary NOT GIVENUNK Eloy Insurance:SELF PAY [facility] Number: Effective Repository Date:2017-12-27 11/14/2017 Frantz Ashton Primary Insurance:MMO Frantz Ashton Reba [id number] MEDICAREPolicy WaltonDOB: [facility] Number: [id number], [place] [id number] Repository 64[address]Xwg: (330) Date:9922-98-08ZT [phone] (HP) [address] [place] [phone]: 11/14/2017 Secondary NOT GIVENUNK Reba Insurance:SELF PAY [facility] Number: Effective Repository Date:2017-11-14
== END ==
PROVIDERS: Family Provider Family Medicine; PCP Family Medicine; Referring Provider Nurse Practitioner Adult Health; Visit Provider Nurse Practitioner Adult Health
DX: R82.998 Other abnormal findings in urine (principal)
CPT/HCPCS: 87086

== ENCOUNTER → 2018-06-23 09:25 | Outpatient (CLI) | payer MEDICARE, SELFPAY ==
[2018-02-04 08:53] VITALS: BMI 26.6
[2018-06-23 10:22] LABS: Hematocrit 45.5 % (40-54); Hemoglobin 14.7 g/dl (13.0-16.5); Mean Corp Hgb Conc 32.3 g/gl (32-36); Mean Corpuscular Hgb 29.1 pg (27.0-32.0); Mean Corpuscular Volume 90.1 fL (80-94); Mean Platelet Vol. 9.5 fl (6.2-12.0); Platelet Count 185 K/mm3 (150-450); RBC Distribution Width CV 14.2 % (11.6-14.6); RBC Distribution Width SD 46.2 fl (35.1-43.9); Red Blood Count 5.05 M/mm3 (4.6-6.2); White Blood Count 4.5 K/mm3 (4.4-11.0)
[2018-06-23 10:24] LABS: Scan Indicated on CBC? Y/N NO
[2018-06-23 10:48] LABS: Anion Gap 6 (5-15); BUN 19 mg/dL (7-18); BUN/Creat Ratio 22.9 RATIO (10-20); Calcium,Total 8.8 mg/dL (8.5-10.1); Chloride 104 mmol/L (98-107); Creatinine, Serum 0.83 mg/dL (0.70-1.30); EST Glomerular Filtration Rate 97 mL/min (>60); Est Glom Filt Rate - Afr Amer 117 mL/min (>60); Glucose 111 mg/dL (74-106); PSA,Total- Diagnostic 1.05 ng/mL (0.0-4.0); Potassium 4.2 mmol/L (3.5-5.1); Sodium Level 140 mmol/L (136-145)
== END ==
PROVIDERS: Family Provider Family Medicine; PCP Family Medicine; Referring Provider Urology; Visit Provider Urology
DX: C61 Malignant neoplasm of prostate (principal)
CPT/HCPCS: 36415; 80048; 84153; 85027

== ENCOUNTER 2018-06-24 13:34 | Emergency (ER) | payer MEDICARE, SELFPAY ==
[2018-06-24 13:37] VITALS: BP 175/94; PULSE 79; RESP 14; TEMP 37.2; O2SAT 98; BMI 26.3
--- NOTE | 2018-06-24 13:59 | RAD_ITS ---
STUDY: X-RAY CHEST REASON FOR EXAM: Male, 72 years old. Chest pain. TECHNIQUE: Single AP portable view of the chest. COMPARISON: Comparison is made with prior study dated June 22, 2017. FINDINGS: EKG electrodes are seen. Stable mild increased markings at the left lung base suggestive of atelectasis and/or scarring. There is no demonstrated pleural abnormality. Normal size heart. Normal mediastinum and autumn. Normal visualized pulmonary arteries. There is atherosclerotic tortuosity of the aortic arch and descending thoracic aorta. Normal visualized thoracic spine. Normal visualized ribs, clavicles, and shoulders. There is no demonstrated abnormality of the visualized soft tissue structures of the upper abdomen. RAD/Chest 1 View (Portable) IMPRESSION: Stable mild increased linear markings at the left lung base suggestive of linear atelectasis and/or scarring. Electronically Signed: Mark Kelsey MD at 14:41 EST Tel [phone], Service support ,
--- NOTE | 2018-06-24 13:59 | EKG12_ITS ---
Test Reason : CHEST PAIN Blood Pressure : / mmHG Vent. Rate : 077 BPM Atrial Rate : 077 BPM P-R Int : 166 ms QRS Dur : 076 ms QT Int : 380 ms P-R-T Axes : 049 -03 053 degrees QTc Int : 430 ms Normal sinus rhythm Normal ECG Confirmed by LEONOR BUCKLEY, AKIRA ([id number]), editorial manager CARMEN MACIAS ([id number]) on 06/26/2018 3:55:39 PM Referred By: Slade Hogue Confirmed By:AKIRA GALVEZ MD
[2018-06-24 14:12] LABS: Absolute Lymphocyte Count 0.82 X10^3/ul (0.83-4.51); Absolute Neutrophil Count 3.5 X10^3/uL (2.0-7.7); Basophil# 0.03 X10^3/uL; Basophil% 0.6 % (0-1); Eosinophil# 0.14 X10^3/uL; Eosinophils% 2.9 % (0-5); Hematocrit 43.8 % (40-54); Hemoglobin 14.3 g/dl (13.0-16.5); Lymphocyte # 0.82 X10^3/ul (4.0); Lymphocyte % 16.8 % (19-41); Mean Corp Hgb Conc 32.6 g/gl (32-36); Mean Corpuscular Hgb 28.8 pg (27.0-32.0); Mean Corpuscular Volume 88.3 fL (80-94); Mean Platelet Vol. 9.7 fl (6.2-12.0); Monocyte# 0.42 X10^3/uL; Monocyte% 8.6 % (0-10); Neutrophil # 3.47 X10^3/uL (2.7-7.7); Neutrophil % 70.9 % (47-70); Platelet Count 199 K/mm3 (150-450); RBC Distribution Width CV 14.2 % (11.6-14.6); RBC Distribution Width SD 45.5 fl (35.1-43.9); Red Blood Count 4.96 M/mm3 (4.6-6.2); White Blood Count 4.9 K/mm3 (4.4-11.0)
[2018-06-24 14:14] LABS: POSITIVE COUNT NO; POSITIVE DIFFERENTIAL NO; POSITIVE MORPHOLOGY NO
--- NOTE | 2018-06-24 14:14 | ED.RN ---
PT AMBULATED TO RESTROOM. STABLE GAIT. NO COMPLAINTS OF DIZZINESS OR SOB OR INCREASED IN PAIN. PT RETURNED TO ROOM WITH NO S/S OF DISTRESS. Samantha LAYTON, RN [id number]
[2018-06-24 14:19] LABS: Anion Gap 7 (5-15); BUN 15 mg/dL (7-18); BUN/Creat Ratio 17.6 RATIO (10-20); Calcium,Total 8.7 mg/dL (8.5-10.1); Chloride 106 mmol/L (98-107); Creatinine, Serum 0.85 mg/dL (0.70-1.30); EST Glomerular Filtration Rate 94 mL/min (>60); Est Glom Filt Rate - Afr Amer 113 mL/min (>60); Estimated Creatinine Clearance 74.88 ml/min; Glucose 95 mg/dL (74-106); Sodium Level 140 mmol/L (136-145)
--- NOTE | 2018-06-24 15:49 | NURSING ---
DR AGAPITO FRY
--- NOTE | 2018-06-24 15:53 | ED.VISSUMM ---
- ER Visit Summary Date of Service: 06/24/18 Chief Complaint: Chest pain History of Present Illness: The patient is a 72 M with left-sided chest pain intermittently for 3 days. The pain feels like a twinge in his left chest. Associated with some mild nausea and hot flashes. No pain or symptoms with exertion. No history of coronary disease, aortic disease, or venous thromboembolism. No cough or sputum. No other GI symptoms. Non-smoker. History of hyperlipidemia. Physical Examination: Afebrile and vital signs unremarkable. Alert and oriented. No acute distress. Skin appears normal without pallor or diaphoresis. Heart regular rate and rhythm. Lungs clear in all carnes. Abdomen soft and nontender. Extremities nontender with no edema. Pulses strong and equal. Test Results: EKG showed sinus rhythm at a rate of 77. No signs of ischemia, infarction, or nonspecific changes. Chest x-ray showed left base atelectasis versus scarring. CBC, metabolic panel, troponin normal. Emergency Department Course and Treatment: Patient declined aspirin because of an upcoming hemorrhoid surgery. He was placed on a monitor. Had no further events or changes during his stay. His workup was unremarkable. His symptoms are atypical for cardiac pain. There is nothing to suggest aortic disease or PE. This does not appear to be infectious. He does have a history of similar symptoms from acid reflux. This was considered. Patient's history, exam, and workup are reassuring. I advised that I cannot rule out cardiac, aortic, or PE disease entirely, but I have low suspicion. Patient was discussed with Dr. Leija who was on-call for his PCP. They will follow-up with him as an outpatient. Advised the patient to return right away if he has new or worsening issues. Treatment Plan: As above Disposition: Discharge Impression: 1. Chest pain unclear etiology This note was generated with [employer] software. It may contain incorrect words, spelling, and punctuation that were not noted in review of the chart prior to signing ED Disposition - Plan for ED Patient: Chief Complaint: Chest Pain Referrals: Warner Lewis MD [Primary Care Provider] -
--- NOTE | 2018-06-24 15:58 | ED.DEP ---
ED Disposition - Plan for ED Patient: Chief Complaint: Chest Pain Instructions: ED Chest Pain Atypical Unkn Cause Referrals: Warner Lewis MD [Primary Care Provider] -
[2018-06-24 16:17] VITALS: BP 159/95; PULSE 65; RESP 17; O2SAT 100
--- NOTE | 2018-06-24 16:17 | ED.RN ---
IV DC'ED, CATHETER INTACT, SMALL GAUZE DRESSING PLACED. DISCHARGE INSTRUCTIONS GIVEN TO AND REVIEWED WITH PATIENT, PATIENT DENIES QUESTIONS OR CONCERNS AND VOICES UNDERSTANDING OF DISCHARGE INSTRUCTIONS. PT AMBULATES OUT OF ROOM WITHOUT DIFFICULTY.
== END 2018-06-24 16:18 | disposition home or self-care (01) ==
PROVIDERS: Emergency Provider Emergency Medicine; Family Provider Family Medicine; PCP Family Medicine
DX: R07.9 Chest pain, unspecified (principal); R11.0 Nausea; K21.9 Gastro-esophageal reflux disease without esophagitis; E78.00 Pure hypercholesterolemia, unspecified; M54.9 Dorsalgia, unspecified; G43.909 Migraine, unspecified, not intractable, without status migrainosus; Z79.899 Other long term (current) drug therapy
CPT/HCPCS: 71045; 80048; 84484; 85025; 93005; 99284; A4216

== ENCOUNTER → 2018-07-18 09:05 | Outpatient (CLI) | payer MEDICARE, SELFPAY ==
[2018-06-24 13:37] VITALS: BMI 26.3
== END ==
PROVIDERS: Family Provider Family Medicine; PCP Family Medicine; Referring Provider Surgery; Visit Provider Surgery
DX: R69 Illness, unspecified (principal)

== ENCOUNTER → 2018-08-01 09:27 | Outpatient (CLI) | payer MEDICARE, SELFPAY ==
--- NOTE | 2018-08-01 10:00 | MRI_ITS ---
STUDY: MRI RIGHT MIDFOOT REASON FOR EXAM: Male, 73 years old. Foot pain. Evaluate for neuroma. TECHNIQUE: Standardized fat and water weighted pulse sequences were obtained in all 3 orthogonal planes. COMPARISON: None. FINDINGS: Normal calcaneocuboid articulation. Normal navicular-cuneiform articulations. Normal intercuneiform articulations. Normal first tarsometatarsal articulation. Normal Lisfranc ligament. Normal second and third tarsometatarsal articulations. Normal cuboid fourth and cuboid fifth tarsometatarsal articulation. There is moderate arthrosis of the first and second metatarsophalangeal and interphalangeal joints with joint effusions (coronal series 6 images 9-15). Normal tibialis anterior tendon. Normal extensor hallucis longus tendon. Normal extensor digitorum longus tendons. Normal peroneus longus tendon and distal insertion. Normal peroneus brevis tendon and distal insertion. Normal intrinsic muscles of the mid and forefoot region. Normal extensor digitorum brevis muscle. There are low signal intensity foci within the second and third intermetatarsal spaces compatible with intermetatarsal neuromas (sagittal series 2 images 15-23, axial series 3 and 4 images 16-22). 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 Electronically Signed: Rafael Godinez MD at 11:31 EST , Service support ,
--- NOTE | 2018-08-01 10:45 | MRI_ITS ---
STUDY: MRI LEFT FOREFOOT WITHOUT CONTRAST REASON FOR EXAM: Male, 73 years old. Pain. TECHNIQUE: Standardized fat and water weighted pulse sequences were obtained in all 3 orthogonal planes. COMPARISON: None. FINDINGS: There is degenerative arthrosis of the metatarsophalangeal joint of the hallux. Normal tibial and fibular sesamoids, with normal sesamoids-first metatarsal articulations. Normal interphalangeal joint of the hallux. Normal proximal and distal phalanges of the great toe. Normal medial and lateral heads of the flexor hallucis brevis tendons. Normal flexor and extensor hallucis longus tendons. Normal second through fourth metatarsophalangeal (MTP) joints. There is effusion at the fifth MTP joint Normal interphalangeal joints of the second through fifth toes. Normal proximal, middle and distal phalanges of the second through fifth toes. Bursitis of the second and third intermetatarsal spaces. There are adjacent 1.5 and 0.8 cm interdigital neuromas, series 4 images 16/36 through 1836. Normal flexor and extensor tendons of the second through fifth toes. Normal visualized metatarsi. Normal intrinsic muscles of the forefoot. There is no demonstrated soft tissue abnormality. 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 No fracture or periosteal reaction. Electronically Signed: Jose Maria Alvarenga MD at 11:16 EST , Service support ,
== END ==
PROVIDERS: Family Provider Family Medicine; PCP Family Medicine; Referring Provider Podiatrist; Visit Provider Podiatrist
DX: G57.83 Other specified mononeuropathies of bilateral lower limbs (principal)
CPT/HCPCS: 73718

== ENCOUNTER 2018-09-15 08:05 | Day surgery (SDC) | payer MEDICARE, SELFPAY ==
[2018-09-09 09:11] VITALS: BMI 26.3
[2018-09-10 11:11] LABS: Hematocrit 42.5 % (40-54); Hemoglobin 14.1 g/dl (13.0-16.5); Mean Corp Hgb Conc 33.2 g/gl (32-36); Mean Corpuscular Hgb 29.4 pg (27.0-32.0); Mean Corpuscular Volume 88.7 fL (80-94); Mean Platelet Vol. 9.5 fl (6.2-12.0); Platelet Count 209 K/mm3 (150-450); RBC Distribution Width CV 14.6 % (11.6-14.6); RBC Distribution Width SD 47.7 fl (35.1-43.9); Red Blood Count 4.79 M/mm3 (4.6-6.2); White Blood Count 4.2 K/mm3 (4.4-11.0)
[2018-09-10 11:14] LABS: Scan Indicated on CBC? Y/N NO
[2018-09-10 11:30] LABS: Anion Gap 5 (5-15); BUN 17 mg/dL (7-18); BUN/Creat Ratio 20.2 RATIO (10-20); Calcium,Total 8.6 mg/dL (8.5-10.1); Chloride 106 mmol/L (98-107); Creatinine, Serum 0.84 mg/dL (0.70-1.30); EST Glomerular Filtration Rate 95 mL/min (>60); Est Glom Filt Rate - Afr Amer 115 mL/min (>60); Glucose 99 mg/dL (74-106); Potassium 3.9 mmol/L (3.5-5.1); Sodium Level 140 mmol/L (136-145)
[2018-09-15] VITALS (8 sets, daily range): BP systolic 114–136; BP diastolic 76–85; PULSE 67–81; RESP 16–18; TEMP 36.1–36.4; O2SAT 95–99; BMI 27.8
[2018-09-15] MEDS: Fleet Enema 1 ML RECTAL (08:34)
--- NOTE | 2018-09-15 09:20 | PCM.DC.REC ---
Discharge Diet: No Restrictions Discharge Activity: Return to Normal Activity, May Not Drive - while you are taking narcotic pain medications. Do not drive, work with heavy equipment or sign legal documents for 24 hours after your surgery. Additional Activity Instructions:: Take Metamucil or Citrucel or FiberCon or Benefiber or similar 1 to heaping tablespoon in water or juice daily. Mineral oil 30 cc in juice or food daily Additional Dressing/Incision Instructions:: You may apply the dibucaine ointment as needed for comfort every 2 hours. Sitz bathing in warm soapy water for approximately 20 minutes at a time for comfort and post defecation hygiene Allergies/Adverse Reactions: Allergies Sulfa (Sulfonamide Antibiotics) Adverse Reaction (Verified 09/09/18 12:17) Unknown Medications to take at Discharge Fluticasone Propionate [Allergy Relief] 15.8 ml NS DAILY 09/24/16 Rizatriptan Benzoate [Maxalt] 10 mg PO PRN PRN 09/24/16 Sertraline HCl [Zoloft] 50 mg PO QHS 09/24/16 Simvastatin [Zocor] 20 mg PO QHS 09/24/16 Tamsulosin HCl [Flomax] 0.4 mg PO DAILY 09/24/16 Etodolac 400 mg PO DAILY 06/22/17 Multivitamin [Daily Multiple Vitamin] 1 ea PO DAILY 02/04/18 hydrocortisone 2.5 % topical cream with perineal applicator 1 applic RC DAILY PRN 21 Days #30 g 08/04/18 lisinopril 10 mg tablet 10 mg PO QHS 09/09/18 Hydrocodone Bitart/Apap 5-325 [[place] 5MG-325MG] 1 tablet PO Q4H PRN PRN 4 Days #15 tablet 09/15/18 Metronidazole [Flagyl] 500 mg PO Q8H 5 Days #15 tablet 09/15/18 The following prescriptions were given: Hydrocodone Bitart/Apap 5-325 [[place] 5MG-325MG] 1 tablet PO Q4H PRN PRN 4 Days #15 tablet PRN Reason: Pain Metronidazole [Flagyl] 500 mg PO Q8H 5 Days #15 tablet Primary Care Physician: Warner Lewis MD [Primary Care Provider] - Test Results: Test results from this visit will be discussed in further detail at your follow-up appointment, if applicable. Please Follow Up With: Galen Levin MD - [phone] When: Plan to have a follow up approximately 3 weeks after surgery.
[2018-09-15] MEDS: Lubricating Jelly 60 GM Tube 30 GM TOPICAL (09:30)
[2018-09-15] MEDS: Dibucaine 30 GM Tube 1 APPLIC (09:52)
[2018-09-15] MEDS: BUPIVACAINE LIPOSOME/PF 20 ML VIAL OPERA.SITE (10:14)
[2018-09-15] MEDS: Bupivacaine Mpf 0.5% 30 ML VIAL (10:14)
--- NOTE | 2018-09-15 10:15 | HEM_PTH ---
PATIENT: FRANTZ MEYERS LOC: [facility] [place] U#:[id number] AGE/SX: 73/M ROOM: RE09/15/[address]: Dr. Galen Levin MD : 1945 BED: DIS: 09/15/2018 SPEC #: [id number] RECD: 09/15/18 11:07 STATUS: JOHN CELE #: [id number] DENISE: 09/15/18 10:[address]: Galen Levin DEPT: SURGICAL PATHOLOGY RECD BY: Garfield Perez ENTERED: 09/15/18 13:21 SP TYPE: HEMORRHOID OTHR DR: Dr. Warner Lewis MD Tissues: HEMORRHOIDS Procedures: Surgery Specimen Level III HEADER OPERATION: Exam under anesthesia, hemorrhoidectomy PRE-OP DIAGNOSIS: Internal hemorrhoids, rectal bleeding TISSUE SUBMITTED: Hemorrhoids MICROSCOPIC DIAGNOSIS Hemorrhoids: Pieces of anorectal mucosa with dilated and congested blood vessels, consistent with hemorrhoids. SJ:davi 09/16/18 MICROSCOPIC DESCRIPTION Slides are reviewed. GROSS DESCRIPTION Received in fixative is one container labeled with the patient's name and designated hemorrhoids. The specimen consists of three variable sized pieces of etienne mucosal tissue that in aggregate measure 4.5 x 2.5 x 1 cm. Sections reveal congested and hemorrhagic cut surfaces. Receptionist Telephone Operator sections are submitted in two cassettes. / LEIF:davi 09/15/18 TC:5 CPT: 91889
--- NOTE | 2018-09-15 10:18 | PCM.OPRPT ---
Problem List (1) Rectal bleeding Status: Acute Report of Operation Date of Procedure: 09/15/18 Pre-Operative Diagnosis: Rectal bleeding Post-Operative Diagnosis: Internal and external hemorrhoids Surgery/Procedure Performed:: Extensive hemorrhoidectomy Description of Surgical Findings:: Timeout and informed consent was obtained. 73-year-old gent was taken out and placed prone on the table. He underwent monitored anesthesia care and local anesthetic. 2 g of cefotetan were given intravenously. The perianal anal area was clipper and Betadine prep. 0.5% Marcaine 30 cc mixed with 20 cc of Exparel was used as local anesthetic. Local was instilled. Then the left lateral there was a bulbous degree of internal hemorrhoid. Apical suture of 2-0 chromic was placed Harmonic Scalpel was used to completely excise this tissue the mucosa was approximated with a running locking 2-0 chromic. An additional apical suture of 0 chromic was applied. Similarly right lateral anterior additional tissues was removed in the similar fashion. Directly anteriorly some external hemorrhoidal tissue was removed in a similar fashion. Right posterior lateral tissue was removed to a much lesser degree in the mucosa again approximated with a running 2-0 chromic. Inspection did reveal some slight more proximal rectal mucosal irritation. I treated a small amount of that with electrocautery. The vast bulk of the hemorrhoidal tissue had been removed. Vaseline gauze saturated with lidocaine was placed intra-rectally. Dry cover dressing applied. Sponge and instrument and needle counts were reported to be the correct. Specimens hemorrhoids. Drains none. Blood loss minimal. The patient was taken to the recovery area in satisfactory condition without apparent complication. Galen Levin M.D., F.A.C.S. Type of Anesthesia:: Local MAC Anesthesiologist: Oskar Pedraza
== END 2018-09-15 12:21 | disposition home or self-care (01) ==
LOC: SDC 08:06 → AC 08:07
PROVIDERS: Family Provider Family Medicine; PCP Family Medicine; Referring Provider Surgery; Visit Provider Surgery
PROC: (CPT 46260; principal; 2018-09-15 10:00)
DX: K64.8 Other hemorrhoids (principal); K64.4 Residual hemorrhoidal skin tags; F32.9 Major depressive disorder, single episode, unspecified; E78.5 Hyperlipidemia, unspecified; I10 Essential (primary) hypertension; K21.9 Gastro-esophageal reflux disease without esophagitis; Z85.46 Personal history of malignant neoplasm of prostate; Z87.891 Personal history of nicotine dependence; Z79.899 Other long term (current) drug therapy
CPT/HCPCS: 46260; 36415; 80048; 85027; 88304; J7120

== ENCOUNTER → 2018-10-23 | Outpatient (CLI) | payer MEDICARE, SELFPAY ==
[2018-09-15 08:25] VITALS: BMI 27.8
[2018-10-23 10:30] LABS: PSA,Total- Diagnostic 1.07 ng/mL (0.0-4.0)
== END | disposition home or self-care (01) ==
LOC: LAB 08:52
PROVIDERS: Family Provider Family Medicine; PCP Family Medicine; Referring Provider Urology; Visit Provider Urology
DX: C61 Malignant neoplasm of prostate (principal)
CPT/HCPCS: 36415; 84153

== ENCOUNTER 2018-12-26 08:39 | Day surgery (SDC) | payer MEDICARE, SELFPAY ==
[2018-12-16 09:21] VITALS: BMI 27.8
--- NOTE | 2018-12-16 09:21 | HP_ITS ---
Intake Intake Visit Reasons: Rectal Bleeding Chief Complaint: recheck hemorrhoidectomy Sheep Sorter Required: No Is patient in pain?: No Allergies Sulfa (Sulfonamide Antibiotics) Adverse Reaction (Verified 12/16/18 08:16) Unknown Medications Fluticasone Propionate [Allergy Relief] 15.8 ml NS DAILY 09/24/16 [History Confirmed 12/16/18] Rizatriptan Benzoate [Maxalt] 10 mg PO PRN PRN 09/24/16 [History Confirmed 12/16/18] Sertraline HCl [Zoloft] 50 mg PO QHS 09/24/16 [History Confirmed 12/16/18] Simvastatin [Zocor] 20 mg PO QHS 09/24/16 [History Confirmed 12/16/18] Tamsulosin HCl [Flomax] 0.4 mg PO DAILY 09/24/16 [History Confirmed 12/16/18] Etodolac 400 mg PO DAILY 06/22/17 [History Confirmed 12/16/18] Multivitamin [Daily Multiple Vitamin] 1 ea PO DAILY 02/04/18 [History Confirmed 12/16/18] lisinopril 10 mg tablet 10 mg PO QHS 09/09/18 [History Confirmed 12/16/18] [facility] Medical History HTN (hypertension) (Chronic) Hyperlipidemia (Acute) Environmental allergies (Acute) Prostate cancer (Acute) Rectal bleeding (Acute) Radiation proctitis (Acute) Surgical History S/P inguinal hernia repair (Acute) S/P right knee arthroscopy (Acute) History of partial colectomy (Acute) H/O colonoscopy (Acute) History of colonoscopy (Acute ~01/2018) History of hemorrhoidectomy (Acute ~09/2018) Family History Brother Cancer prostate Social History (Updated 12/16/18 @ 09:21 by Galen Levin MD) Smoking Status: Former smoker second hand exposure: No alcohol intake: never substance use type: does not use caffeine: Yes what type of physical activity do you participate in: other details: Patient has an active lifestyle seatbelt use: always HPI HPI HPI: FRANTZ MEYERS, is a 73 M who presents to the office today for HPI HPI Surgical H&P: Yes HPI: FRANTZ MEYERS, is a 73 M who presents to the office today for ongoing surgical care status post a aggressive internal and external surgical hemorrhoidectomy which I performed for him on September 15, 2018. Final pathology was consistent with the same. Unfortunately he is continued to have rectal bleeding. The rectal bleeding has improved since the time of surgery but he will still have blood with every single bowel movement and blood on every stool. Harmonic Scalpel and 2-0 chromic was utilized. Exam Const General: cooperative, healthy appearing, comfortable, no acute distress Nutritional Appearance: average body habitus Orientation: alert, awake HENMT Head: normal to inspection Eyes General: appearance normal, both eyes and all related structures Resp Effort & Inspection: normal respiratory effort Auscultation: clear to auscultation bilaterally Cardio Rate: regular rate Rhythm: regular rhythm GI Palpation: soft, no hepatosplenomegaly Auscultation: normal bowel sounds Other: External rectal examination very clean completely healed skin, digital exam much diminished induration however anteriorly at the apex of the examining finger there is a palpable nodule. Blood is noted on the glove Skin Lesions: no lesions Extrem General: no calf tenderness bilaterally Psych Affect: normal affect Assessment & Plan Problems 1. Internal hemorrhoids K64.8 Plan Based upon the patient's history presentation and resection of extensive internal hemorrhoids I suspect that he has an area of focal granulation tissue superior anteriorly. It appears that his rectal bleeding symptoms are not decreasing. I believe that this could be most readily treated by an examination under anesthesia with proctoscopy and either repeat surgical resection of that area or suture ligation or cautery ablation. I do not believe that I could accomplish that in an office setting. I believe however that I can proceed with monitored anesthesia care and local anesthetic. I discussed with him technique, benefit, risks, alternatives. We will have him take an enema preprocedure. I very much appreciate the ongoing opportunity of assisting with his surgical care. Galen Levin M.D., F.A.C.S. Coding Level of Care Code Global Post Op Diagnoses Internal hemorrhoids K64.8 12/16/18 0921 <Electronically signed by Galen long MD> Date _ Galen Levin MD I have re-examined the patient. There are no clinical changes since date of exam.
[2018-12-26] VITALS (7 sets, daily range): BP systolic 111–138; BP diastolic 73–89; PULSE 70–78; RESP 16; TEMP 35.8–36.6; O2SAT 98–100; BMI 26.8
--- NOTE | 2018-12-26 10:00 | EKG12_ITS ---
Test Reason : PREOP Blood Pressure : / mmHG Vent. Rate : 062 BPM Atrial Rate : 062 BPM P-R Int : 174 ms QRS Dur : 076 ms QT Int : 438 ms P-R-T Axes : 069 022 040 degrees QTc Int : 444 ms Normal sinus rhythm Normal ECG When compared with ECG of 24-JUN-2018 13:37, No significant change was found Confirmed by SJ BUCKLEY, KRISTYN ([id number]), newspaper photo editor ASH AGUIRRE ([id number]) on 01/02/2019 10:03:19 A M Referred By: Galen Levin Confirmed By:GWEN GUSTAFSON MD
[2018-12-26 10:06] LABS: Bedside Glucose 160 mg/dL (70-110)
--- NOTE | 2018-12-26 11:21 | DCINST_ITS ---
Discharge Diet: No Restrictions Discharge Activity: Return to Normal Activity, May Not Drive - while you are taking narcotic pain medications. Do not drive, work with heavy equipment or sign legal documents for 24 hours after your surgery. Allergies/Adverse Reactions: Allergies Sulfa (Sulfonamide Antibiotics) Adverse Reaction (Verified 12/26/18 08:50) Unknown Medications to take at Discharge Fluticasone Propionate [Allergy Relief] 15.8 ml NS DAILY 09/24/16 Rizatriptan Benzoate [Maxalt] 10 mg PO PRN PRN 09/24/16 Sertraline HCl [Zoloft] 50 mg PO QHS 09/24/16 Simvastatin [Zocor] 20 mg PO QHS 09/24/16 Tamsulosin HCl [Flomax] 0.4 mg PO DAILY 09/24/16 Etodolac 400 mg PO DAILY 06/22/17 Multivitamin [Daily Multiple Vitamin] 1 ea PO DAILY 02/04/18 lisinopril 10 mg tablet 10 mg PO QHS 09/09/18 Primary Care Physician: Warner Lewis MD [Primary Care Provider] - Test Results: Test results from this visit will be discussed in further detail at your follow- up appointment, if applicable. Please Follow Up With: Galen Levin MD - [phone] When: Plan to have a follow up approximately 3 weeks after surgery.
[2018-12-26] MEDS: Bupivacaine Mpf 0.5% 30 ML VIAL (11:38)
--- NOTE | 2018-12-26 11:57 | OP.PCM_ITS ---
Problem List (1) Rectal bleeding Status: Acute Report of Operation Date of Procedure: 12/26/18 Pre-Operative Diagnosis: Rectal bleeding Post-Operative Diagnosis: Radiation proctitis Surgery/Procedure Performed:: Examination under anesthesia with argon beam rectal cauterization Description of Surgical Findings:: Timeout informed consent was obtained. 73-year-old gentleman stick in the op erating place prone on the table jackknife position. He underwent monitored anesthesia care. Cefotetan 2 g were given intravenously. The perianal area was sterilely prepped and draped. I initially put a small duckbill retractor in but simply saw bleeding from edges. So then put a rigid sigmoidoscope in. Did not appear that the bleeding was coming from the sigmoid but it appeared to be diffusely emanating from the rectum. So then I put a lighted rectal speculum in and this demonstrated that the previous hemorrhoidectomy incisions had completely healed that there was no issue with that no granulation tissue related to that however there was diffuse radiation proctitis. This was clearly noted on the anterior wall of the rectum. The posterior wall was spared. This was diffuse and readily bleeding. I used the argon beam on rectal settings to treat the rectal surfaces where possible were bleeding was noted. Tolerated that procedure well. The procedure was completed. He was taken to the recovery area in satisfactory condition. He will be discharged on oral antibiotics. Specimens none. Drains none. Blood loss minimal. Galen Levin M.D., F.A.C.S. Type of Anesthesia:: Local MAC Anesthesiologist: Rafael Ryan
== END 2018-12-26 13:31 | disposition home or self-care (01) ==
LOC: SDC 08:41 → AC 08:42
PROVIDERS: Family Provider Family Medicine; PCP Family Medicine; Referring Provider Surgery; Visit Provider Surgery
PROC: (CPT 45334; principal; 2018-12-26 10:00)
DX: K62.7 Radiation proctitis (principal); Z79.899 Other long term (current) drug therapy; E78.5 Hyperlipidemia, unspecified; I10 Essential (primary) hypertension; Z85.46 Personal history of malignant neoplasm of prostate; Z87.891 Personal history of nicotine dependence; F32.9 Major depressive disorder, single episode, unspecified
CPT/HCPCS: 00811; 45334; 82962; 93005; J7120

== ENCOUNTER 2019-04-24 10:57 | Day surgery (SDC) | payer MEDICARE, SELFPAY ==
[2018-12-26 08:56] VITALS: BMI 26.8
[2019-04-17 13:30] VITALS: BMI 26.8
[2019-04-24] VITALS (10 sets, daily range): BP systolic 75–143; BP diastolic 63–83; PULSE 61–73; RESP 16–18; TEMP 36.6–37.1; O2SAT 95–100; BMI 27.3
[2019-04-24 11:25] LABS: Absolute Lymphocyte Count 0.85 X10^3/uL (0.83-4.51); Absolute Neutrophil Count 2.5 X10^3/uL (2.0-7.7); Basophil# 0.03 X10^3/uL; Basophil% 0.8 % (0-1); Eosinophil# 0.21 X10^3/uL; Eosinophils% 5.4 % (0-5); Hematocrit 47.9 % (40-54); Hemoglobin 15.3 g/dL (13.0-16.5); Lymphocyte # 0.85 X10^3/ul (4.0); Lymphocyte % 21.7 % (19-41); Mean Corp Hgb Conc 31.9 g/dL (32-36); Mean Corpuscular Hgb 28.8 pg (27.0-32.0); Mean Platelet Vol. 8.9 fl (6.2-12.0); Monocyte# 0.37 X10^3/uL; Monocyte% 9.5 % (0-10); NRBC Flagged by Analyzer 0 % (0-5); Neutrophil # 2.45 X10^3/uL (2.7-7.7); Neutrophil % 62.6 % (47-70); Platelet Count 225 K/mm3 (150-450); RBC Distribution Width CV 14.3 % (11.6-14.6); Red Blood Count 5.32 M/mm3 (4.6-6.2); White Blood Count 3.9 K/mm3 (4.4-11.0)
[2019-04-24] MEDS: Lactated Ringers 1,000 ML 100 ML IV (12:08)
--- NOTE | 2019-04-24 13:05 | NEUR_PTH ---
PATIENT: FRANTZ MEYERS LOC: [facility] [place] U[place][id number] AGE/SX: 73/M ROOM: RE04/24/[address]: Dr. Warner Leach DPM : 1945 BED: DIS: 04/24/2019 SPEC #: [id number] RECD: 04/24/19 15:39 STATUS: JOHN REAliya #: [id number] DENISE: 04/24/19 13:[address]: Warner Leach DEPT: SURGICAL PATHOLOGY RECD BY: Michael Azevedo ENTERED: 04/27/19 09:52 SP TYPE: NEUROMA OTHR DR: Dr. Warner Lewis MD Tissues: A - NEUROMA B - NEUROMA Procedures: Surgery Specimen Level III HEADER OPERATION: Excision of 2nd and 3rd intermetatarsal neuromas, foot PRE-OP DIAGNOSIS: Intermetatarsal neuromas, 2nd and 3rd TISSUE SUBMITTED: A. Neuroma, 2nd metatarsal, B. Neuroma, 3rd metatarsal MICROSCOPIC DIAGNOSIS A. Soft tissue, second metatarsal, biopsy: Consistent with neuroma. B. Soft tissue, third metatarsal, biopsy: Consistent with neuroma. AM:davi 04/28/19 MICROSCOPIC DESCRIPTION Slides are reviewed. GROSS DESCRIPTION A - Received in fixative is one container labeled with the patient's name and designated neuroma second metatarsal. The specimen consists of an elongated piece of etienne soft tissue measuring 3.5 x 0.6 x 0.5 cm. The specimen is serially sectioned and submitted entirely in one cassette. B - Received in fixative is one container labeled with the patient's name and designated neuroma third metatarsal. The specimen consists of an irregular piece of etienne-yellow fibroadipose tissue measuring 2 x 1 x 0.3 cm. The specimen is serially sectioned and submitted entirely in one cassette. / SJ:davi 04/27/19 TC:5 CPT: 81117 x2
[2019-04-24] MEDS: Cefazolin 2 GM in 0.9% Normal Saline 100 ML IV (13:20)
--- NOTE | 2019-04-24 13:22 | DCINST_ITS ---
Discharge Diet: Light diet - advance as tolerated Discharge Activity: May not drive while taking narcotic pain medications., Use Walker Weight Bearing Status: No weight bearing - No weightbearing on toes/ball of left foot, ok to put weight on left heel Keep extremity elevated above heart level: Left Leg - Keep left foot elevated for at least 50 minutes of every hour Call your doctor if your incision/area has: Continuous Slow Oozing, Sudden Increased Bleeding, Foul Smelling Discharge Call your doctor if you observe: Fever of 101 or Higher, Shortness of breath, Chest pain, Increased palpitations (irregular heartbeat), Calf discomfort, Uncontrolled pain Cleanse incision/area with: Do not get Incision Wet, Keep Dressing Clean & Dry Allergies/Adverse Reactions: Allergies Sulfa (Sulfonamide Antibiotics) Adverse Reaction (Verified 04/24/19 11:16) Unknown Medications to take at Discharge Fluticasone Propionate [Allergy Relief] 15.8 ml NS DAILY 09/24/16 Rizatriptan Benzoate [Maxalt] 10 mg PO PRN PRN 09/24/16 Sertraline HCl [Zoloft] 50 mg PO QHS 09/24/16 Simvastatin [Zocor] 20 mg PO QHS 09/24/16 Tamsulosin HCl [Flomax] 0.4 mg PO QHS 09/24/16 Etodolac 400 mg PO DAILY 06/22/17 Multivitamin [Daily Multiple Vitamin] 1 ea PO DAILY 02/04/18 lisinopril 10 mg tablet 10 mg PO QHS 09/09/18 Hydrocodone/Acetaminophen [Vicodin 5-300 mg Tablet] 1 - 2 tab PO Q6H PRN PRN 3 Days #20 tab 04/24/19 The following prescriptions were given: Hydrocodone/Acetaminophen [Vicodin 5-300 mg Tablet] 1 - 2 tab PO Q6H PRN PRN 3 Days #20 tab PRN Reason: Pain Score 1-10/10 Prescription Printed Primary Care Physician: Warner Lewis MD [Primary Care Provider] - Test Results: Test results from this visit will be discussed in further detail at your follow- up appointment, if applicable. Please Follow Up With: Warner Leach DPM When: 1 week, sooner if needed
[2019-04-24] MEDS: Bupivacaine Mpf 0.5% 30 ML VIAL (13:36)
--- NOTE | 2019-04-24 14:27 | PCM.OPRPT ---
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 Nancy Edmonds Type of Anesthesia:: Local MAC Special Medications: Excised 2nd and 3rd intermetatarsal neuromas from left foot Estimated Blood Loss (mL): <1mL Description of Procedure: Indications: This is a 73 year old male with history of chronic left foot pain at level of the 2nd and 3rd intermetatarsal/digital spaces. He has undergone conservative / nonsurgical care (including but not limited to injection therapy, foot orthotics, rest, activity modifications, changes in shoegear, anti-inflammatories) but continues to have significant limiting pain. He elected to proceed with surgical intervention of excision of the 2nd and 3rd intermetatarsal space neuromas (advised patient she would have numbness to the plantar foot). This was discussed with him in great detail. He agreed with this plan, reviewed all of the possible benefits vs risks, goal, expectations, and typical healing time. He was able to repeat these back, all of his questions were answered. The consent forms were reviewed with him and he agreed signed them. No guarantees were given nor implied. Operative procedure: The patient was brought back to the operating room and was placed on the operating room table in the supine position. Patient was carefully secured the the operating room table with a safely belt around his waist. A time out was performed and the patient was properly identified and the surgical plan was confirmed. The patient received 2g of IV Cefazolin for antibiotic prophylaxis. A well padded pneumatic tourniquet was applied around the left ankle. The patient did receive MAC anesthesia per the anesthesiologist. A total of 10mL of 0.5% Bupivacaine plain was given as a local block to the 2nd and 3rd intermetatarsal spaces on the left foot. The left foot was scrubbed, prepped, draped in the usual aseptic fashion. The left foot was exsanguinated using an Esmarch bandage and the ankle pneumatic tourniquet was inflated to 250mmHg. Attention was directed to the 2nd intermetatarsal space, where a longitudinal incision was made using a 15 blade on the dorsal aspect. Careful dissection was completed down to the deep transverse metatarsal ligament which was released in sharp fashion. A large plantar neuroma was identified localized to the site, which was yellow and degenerative. There were findings consistent with perineural fibrosis to the lesion. This was carefully dissected out, removing the proximal nerve and also the distal branches to the 2nd and 3rd toes at the base of the toes. This was passed from the surgical site and was sent to pathology for further evaluation. The proximal nerve stump was healthy, viable and was carefully buried into the intrinsic musculature of the foot. All other tissue to the site appeared healthy and viable with no other abnormality present to this site. The site was flushed out with copious amounts of normal saline solution. The subcutaneous tissue was reapproximated using 4-0 Vicryl. The skin was reapproximated using 4-0 Monocryl. Attention was directed to the 3rd intermetatarsal space, where a longitudinal incision was made using a 15 blade on the dorsal aspect. Careful dissection was completed down to the deep transverse metatarsal ligament which was released in sharp fashion. A plantar neuroma was identified localized to the site, which was yellow, degenerative and had significant fatty tissue around it. There were findings consistent with perineural fibrosis to the lesion. This was carefully dissected out, removing the proximal nerve and also the distal branches to the 3rd and 4th toes at the base of the toes. This was passed from the surgical site and was sent to pathology for further evaluation. The proximal nerve stump was healthy, viable and was carefully buried into the intrinsic musculature of the foot. All other tissue to the site appeared healthy and viable with no other abnormality present to this site. The site was flushed out with copious amounts of normal saline solution. The subcutaneous tissue was reapproximated using 4-0 Vicryl. The skin was reapproximated using 4-0 Monocryl. An additional 10mL of 0.5% Bupivacaine plain as well as 7mL of 1% Lidocaine plain was given as a local nerve block around the surgical sites. Cavilon was painted to the sutured skin edges and steristrips were applied across the sutures skin incision sites. All vital structures including all vital musculoskeletal and neurovascular structures were properly identified and protected/retracted as necessary. The pneumatic tourniquet was deflated (total tourniquet time was 44 minutes), and there was immediate return vascular flow to the foot, CFT < 2 seconds to all toes, normal temperature gradient, pedal pulses intact. Hemostasis was achieved. A dressing was applied which consisted of Betadine soaked adaptic, 4x4 gauze, kerlix, and jovanni bandage. The patient tolerated the above operative procedure well at the anesthesia well with no complication. The patient was transported to the recovery room with vital signs stable and in good condition. Post operative orders were placed. Post operative instructions were reviewed with him as well as with his who was here with him today. No weightbearing to the left forefoot, keep foot elevated for at least 50 minutes of every hour, keep dressing clean, dry and intact. Prescription for Vicodin 5mg/300mg was prescribed: 1-2 tabs PO q 6 hours PRN pain. He is to follow up with me within 1 week or sooner if needed. Grafts/Implants Used: None - Complications None
--- NOTE | 2019-05-04 09:39 | HP_ITS ---
Intake Vital Signs 05/04/19 Blood Pressure 137/85 H 05/04/19 Blood Pressure Location Rt brachial 05/04/19 Blood Pressure Position Sitting 05/04/19 Respiratory Rate 18 05/04/19 Pulse Rate 86 05/04/19 Pulse Ox 99 05/04/19 Body Mass Index (BMI) 27.3 04/17/19 Body Mass Index (BMI) 26.8 Intake Visit Reasons: Lt Inguinal Hernia Chief Complaint: left inguinal hernia, hx [facility] Emergency Room Doctor Required: No Is patient in pain?: No Allergies Sulfa (Sulfonamide Antibiotics) Adverse Reaction (Verified 05/04/19 08:58) Unknown Medications Fluticasone Propionate [Allergy Relief] 15.8 ml NS DAILY 09/24/16 [History Confirmed 05/04/19] Rizatriptan Benzoate [Maxalt] 10 mg PO PRN PRN 09/24/16 [History Confirmed 05/04/19] Sertraline HCl [Zoloft] 50 mg PO QHS 09/24/16 [History Confirmed 05/04/19] Simvastatin [Zocor] 20 mg PO QHS 09/24/16 [History Confirmed 05/04/19] Tamsulosin HCl [Flomax] 0.4 mg PO QHS 09/24/16 [History Confirmed 05/04/19] Etodolac 400 mg PO DAILY 06/22/17 [History Confirmed 05/04/19] Multivitamin [Daily Multiple Vitamin] 1 ea PO DAILY 02/04/18 [History Confirmed 05/04/19] lisinopril 10 mg tablet 10 mg PO QHS 09/09/18 [History Confirmed 05/04/19] fluconazole 200 mg tablet 200 mg PO DAILY #1 tab 05/04/19 [Rx Confirmed 05/04/19] nystatin 100,000 unit/gram topical powder 1 applic TOPICAL BID #60 g 05/04/19 [Rx Confirmed 05/04/19] PFSH Medical History Internal hemorrhoids (Acute) HTN (hypertension) (Chronic) Hyperlipidemia (Acute) Environmental allergies (Acute) Prostate cancer (Acute) Rectal bleeding (Acute) Radiation proctitis (Acute) Surgical History S/P inguinal hernia repair (Acute) S/P right knee arthroscopy (Acute) History of partial colectomy (Acute) H/O colonoscopy (Acute) History of colonoscopy (Acute ~01/2018) History of hemorrhoidectomy (Acute ~09/2018) Family History Brother Cancer prostate Social History (Updated 05/04/19 @ 09:39 by Galen Levin MD) Smoking Status: Former smoker second hand exposure: No alcohol intake: never substance use type: does not use caffeine: Yes what type of physical activity do you participate in: other details: Patient has an active lifestyle seatbelt use: always HPI HPI HPI: FRANTZ MEYERS, is a 73 M who presents to the office today for HPI HPI Surgical H&P: Yes HPI: FRANTZ MEYERS, is a 73 M who presents to the office today for for surgical consultation regarding a greater than 1 month history of a bulge and tenderness in his left groin. He has had a remote right inguinal hernia repair by Dr. Pablo black.. I have assisted him in the past with a sigmoid colectomy for diverticular disease. Just within the past week he has had neuroma surgery of his left foot performed by .. 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 Patient states that he can palpate a lump and it is uncomfortable when it bulges. He also complains of a groin rash newer in onset. Finally he does have nocturia and he uses Flomax. He does have a local urologist . I have also assisted in the past with a hemorrhoidectomy September 2018 in attempt to solve rectal bleeding. He has had biopsies done for suspected radiation proctitis. The biopsies suggested normal mucosa. He has had a history of radiation treatment for prostate cancer. On December 26, 2018 I attempted rectal cauterization with argon beam. He is still having rectal bleeding problems. He has been seen back by his radiation oncologist Dr. Lundberg with no recommendations per patient ROS General General: No weight change, appetite, fatigue, colon cancer, breast cancer or weakness HEENT HEENT: No difficulty swallowing, eye injury, eye surgery, swollen glands or hoarseness Endo Endocrine: No thyroid disease, diabetes mellitus, thyroid cancer, Hair loss, heat intolerance or cold intolerance Skin Skin: No rash or changing moles Breast Breast: No left breast lump, right breast lump, nipple discharge, breast pain, abnormal mammogram, abnormal US or breast enlargement Musc Musculoskeletal: Yes back problems and arthritis; no rheumatoid arthritis, gout or joint pain Cardio Cardiovascular: No murmur, pacemaker, heart disease, atrial fibrillation, high blood pressure, heart attack, heart stent, palpitations, shortness of breat with exertion or chest pain Psych Psychiatric: Yes anxiety; no depression or hearing voices Resp Respiratory: No shortness of breath, No sleep apnea, No cough, No COPD, No asthma, No emphysema, No wheezing Gastro Gastrointestinal: No abdominal pain, No nausea or vomiting, No diarrhea, Yes constipation, No blood in stool, Yes acid reflux, No hemorrhoids, No ulcers, No gallbladder problem, No black,tarry stools Fredo Hematologic: Yes blood thinners, No blood disorders, No bleeding, No anemia, No blood clots Neuro Neurologic: No weakness Exam Const General: cooperative, healthy appearing, comfortable, no acute distress Nutritional Appearance: average body habitus Orientation: alert, awake HENOK Head: normal to inspection Chest Breast Palpation: No nipple discharge Resp Effort & Inspection: normal respiratory effort Auscultation: clear to auscultation bilaterally Cardio Rate: regular rate Rhythm: regular rhythm Heart Sounds: no murmurs GI Palpation: soft, no hepatosplenomegaly Other: Well-healed infraumbilical midline incision Other: Right groin: Well-healed transverse incision. Very slight generalized weakness. Left groin: Bulge noted slightly tender but reducible. Testicles are descended bilaterally. No testicular mass Mild erythematous bilateral groin rash noted Neuro Cognition: normal cognition Extrem General: no calf tenderness bilaterally Other: Left foot in a support boot because of the recent neuroma surgery Psych Affect: normal affect Assessment & Plan Problems 1. Inguinal hernia of left side without obstruction or gangrene K40.90 Plan Reducible left inguinal hernia. Groin candidiasis. History of remote right inguinal hernia repair. More recent left foot neuroma surgery. I recommended the patient a dose of Diflucan 200 mg orally for his candidiasis. In addition he has been prescribed nystatin powder to utilize twice daily if needed preoperatively. I proposed for him a open left inguinal herniorrhaphy with mesh. As noted he has had prostate radiation treatment and has had a sigmoid colectomy. I anticipate hopefully perform this with monitored anesthesia care and local anesthetic. He is aware of the technique, benefits, risks, alternatives. He has had an opportunity to ask and have questions answered. In addition he takes Flomax for bladder outlet obstruction. I have asked him to take that twice daily starting 3 days preoperatively. At this point he would like to schedule and proceed as noted. I appreciate the ongoing opportunity of assisting with his surgical care. CC: Dr. Warner Levin M.D., F.A.C.S. Medications New: nystatin 1 applic topical BID 60 grams 0RF fluconazole 200 mg PO DAILY 1 tab 0RF Coding Level of Care Code Off vis,est,level 4 Diagnoses Inguinal hernia of left side without obstruction or gangrene K40.90 05/04/19 0939 <Electronically signed by Galen long MD> Date _ Galen Levin MD I have re-examined the patient. There are no clinical changes since date of exam.
== END 2019-04-24 16:08 | disposition home or self-care (01) ==
LOC: SDC 10:58 → AC 10:59
PROVIDERS: Family Provider Family Medicine; PCP Family Medicine; Referring Provider Podiatrist; Visit Provider Podiatrist
PROC: (CPT 28080; principal; 2019-04-24 12:50)
DX: G57.82 Other specified mononeuropathies of left lower limb (principal); N40.0 Benign prostatic hyperplasia without lower urinary tract symptoms; I10 Essential (primary) hypertension; K58.9 Irritable bowel syndrome, unspecified; M48.061 Spinal stenosis, lumbar region without neurogenic claudication; M81.0 Age-related osteoporosis without current pathological fracture; G43.909 Migraine, unspecified, not intractable, without status migrainosus; E78.00 Pure hypercholesterolemia, unspecified; F32.9 Major depressive disorder, single episode, unspecified; Z87.19 Personal history of other diseases of the digestive system; Z85.820 Personal history of malignant melanoma of skin; Z85.46 Personal history of malignant neoplasm of prostate; Z86.010 Personal history of colon polyps; Z79.899 Other long term (current) drug therapy; Z87.891 Personal history of nicotine dependence
CPT/HCPCS: 28080 ×2; 36415; 85025; 88304; J7120; J2405

== ENCOUNTER 2019-05-15 22:28 | Emergency (ER) | payer MEDICARE, SELFPAY ==
[2019-05-04 08:58] VITALS: BMI 27.3
[2019-05-15 22:28] VITALS: BP 146/84; PULSE 82; RESP 20; TEMP 36.7; O2SAT 99; BMI 28.7
[2019-05-15 22:31] VITALS: BP 146/84; PULSE 82; RESP 20; TEMP 36.7; O2SAT 99
--- NOTE | 2019-05-15 22:55 | US_ITS ---
HISTORY: LT ANKLE EDEMA AND PAIN MEDIAL COMPARISON: None TECHNIQUE: Grayscale compression, color Doppler and spectral Doppler sonography of the left lower extremity venous system was performed. Number of images including paperwork: 23. FINDINGS: COMMON FEMORAL VEIN: Compressible with venous flow and augmentation bilaterally. FEMORAL VEIN: Compressible with venous flow and augmentation. POPLITEAL VEIN: Compressible with venous flow and augmentation. CALF VEINS: Venous flow demonstrated in the imaged segments. Subcutaneous edema noted in the left ankle soft tissues. US/Venous Duplex Imag/Limited/Uni IMPRESSION: No evidence of deep vein thrombosis of the left lower extremity. Left ankle soft tissue edema. at 2333 Reported and signed by: Xiomara Sarabia MD Electronically Signed: Xiomara Sarabia MD at 23:33 EST Tel , Service support ,
--- NOTE | 2019-05-15 22:57 | ED.DCSUM_ITS ---
- ER Visit Summary Date of Service: 05/15/19 Chief Complaint: Left ankle pain History of Present Illness: The patient is a 73 M presenting with left ankle pain. He states this started today. He had surgery per Dr. Leach 2 weeks ago to remove a neuroma from his left foot. He states this has been healing well. He has a follow-up appointment with Dr. Leach on Saturday. Today he noticed swelling to the medial aspect of his left ankle and pain up in his left medial calf. Denies fever. Denies chest pain or shortness of breath. Denies other complaints. Physical Examination: Vitals are stable. Patient is afebrile. Alert no acute distress. HEENT exam is unremarkable. Neck is supple. Lungs are clear and equal bilaterally. Heart is regular rate and rhythm. Extremities left medial ankle tenderness and mild swelling, normal distal pulses. Incision clean dry and intact. Active full range of motion. Skin is warm and dry. No focal neurologic deficit. Remainder of exam is unremarkable. Emergency Department Course and Treatment: Left venous doppler shows no evidence of deep vein thrombosis of the left lower extremity. Left ankle soft tissue edema. Left foot and ankle x-ray show no acute osseous abnormality. Left foot soft tissue swelling. Patient is able to ambulate in the ED without difficulty. Discussed with Dr. Matthews and patient will follow-up in the office on Saturday. Advised return to ED for worsening complaints. Disposition: Discharged home Impression: Postop left foot and ankle pain This note was generated with [employer] dictation software. It may contain incorrect words, spelling, and punctuation that were not noted in review of the chart prior to signing ED Disposition - Plan for ED Patient: Instructions: POST OP WOUND CHECK, Pain Referrals: Warner Lewis MD [Primary Care Provider] - Warner Leach DPM [STAFF PHYSICIAN] -
--- NOTE | 2019-05-15 23:46 | RAD_ITS ---
HISTORY: edema to lt lower leg recent surgery on lt foot nki ADDITIONAL HISTORY: None provided. TECHNIQUE: Left ankle 3 views Number of images including paperwork: 3 COMPARISON: None FINDINGS: BONES: No acute fracture. Plantar spur. JOINTS: No subluxation. SOFT TISSUES: No distinct foreign body. RAD/Ankle min 3 Views IMPRESSION: No acute osseous abnormality. at 0019 Reported and signed by: Xiomara Sarabia MD Electronically Signed: Xiomara Sarabia MD at 0:19 EST Tel , Service support ,
--- NOTE | 2019-05-15 23:46 | RAD_ITS ---
HISTORY: edema to lt lower legrecent surgery on lt foot nki ADDITIONAL HISTORY: None provided. TECHNIQUE: Left foot 3 views Number of images including paperwork: 3 COMPARISON: None FINDINGS: BONES: No acute fracture. Plantar spur. JOINTS: No subluxation. SOFT TISSUES: No distinct foreign body. Soft tissue swelling. No definite soft tissue gas. RAD/Foot min 3 Views IMPRESSION: No acute osseous abnormality. Left foot soft tissue swelling. at 0019 Reported and signed by: Xiomara Sarabia MD Electronically Signed: Xiomara Sarabia MD at 0:19 EST Tel , Service support ,
--- NOTE | 2019-05-16 00:40 | ED.DEP ---
ED Disposition - Plan for ED Patient: Instructions: POST OP WOUND CHECK, Pain Referrals: Warner Lewis MD [Primary Care Provider] - Warner Leach DPM [STAFF PHYSICIAN] -
--- NOTE | 2019-05-16 00:49 | ED.RN ---
PT GIVEN WRITTEN AND VERBAL DISCHARGE INSTRUCTIONS AND HOME GOING PAPERWORK. PT VERBALIZES UNDERSTANDING AND DENIES ANY FURTHER QUESTIONS. PT REFUSES D/C VS. PT AMBULATES OUT OF DEPT. BY SELF.
== END 2019-05-16 00:54 | disposition home or self-care (01) ==
LOC: ED 23:29
PROVIDERS: Emergency Provider Emergency Medicine; Family Provider Family Medicine; PCP Family Medicine
DX: M25.572 Pain in left ankle and joints of left foot (principal); M79.672 Pain in left foot; Z98.890 Other specified postprocedural states; I10 Essential (primary) hypertension; E78.00 Pure hypercholesterolemia, unspecified; Z79.899 Other long term (current) drug therapy
CPT/HCPCS: 73610; 73630; 93971; 99282

== ENCOUNTER 2019-05-20 07:37 | Day surgery (SDC) | payer MEDICARE, SELFPAY ==
[2019-04-24 11:23] VITALS: BMI 27.3
--- NOTE | 2019-05-04 09:39 | HP_ITS ---
Intake Vital Signs 05/04/19 Blood Pressure 137/85 H 05/04/19 Blood Pressure Location Rt brachial 05/04/19 Blood Pressure Position Sitting 05/04/19 Respiratory Rate 18 05/04/19 Pulse Rate 86 05/04/19 Pulse Ox 99 05/04/19 Body Mass Index (BMI) 27.3 04/17/19 Body Mass Index (BMI) 26.8 Intake Visit Reasons: Lt Inguinal Hernia Chief Complaint: left inguinal hernia, hx [facility] [employer] Specialist Required: No Is patient in pain?: No Allergies Sulfa (Sulfonamide Antibiotics) Adverse Reaction (Verified 05/04/19 08:58) Unknown Medications Fluticasone Propionate [Allergy Relief] 15.8 ml NS DAILY 09/24/16 [History Confirmed 05/04/19] Rizatriptan Benzoate [Maxalt] 10 mg PO PRN PRN 09/24/16 [History Confirmed 05/04/19] Sertraline HCl [Zoloft] 50 mg PO QHS 09/24/16 [History Confirmed 05/04/19] Simvastatin [Zocor] 20 mg PO QHS 09/24/16 [History Confirmed 05/04/19] Tamsulosin HCl [Flomax] 0.4 mg PO QHS 09/24/16 [History Confirmed 05/04/19] Etodolac 400 mg PO DAILY 06/22/17 [History Confirmed 05/04/19] Multivitamin [Daily Multiple Vitamin] 1 ea PO DAILY 02/04/18 [History Confirmed 05/04/19] lisinopril 10 mg tablet 10 mg PO QHS 09/09/18 [History Confirmed 05/04/19] fluconazole 200 mg tablet 200 mg PO DAILY #1 tab 05/04/19 [Rx Confirmed 05/04/19] nystatin 100,000 unit/gram topical powder 1 applic TOPICAL BID #60 g 05/04/19 [Rx Confirmed 05/04/19] PFSH Medical History Internal hemorrhoids (Acute) HTN (hypertension) (Chronic) Hyperlipidemia (Acute) Environmental allergies (Acute) Prostate cancer (Acute) Rectal bleeding (Acute) Radiation proctitis (Acute) Surgical History S/P inguinal hernia repair (Acute) S/P right knee arthroscopy (Acute) History of partial colectomy (Acute) H/O colonoscopy (Acute) History of colonoscopy (Acute ~01/2018) History of hemorrhoidectomy (Acute ~09/2018) Family History Brother Cancer prostate Social History (Updated 05/04/19 @ 09:39 by Galen Levin MD) Smoking Status: Former smoker second hand exposure: No alcohol intake: never substance use type: does not use caffeine: Yes what type of physical activity do you participate in: other details: Patient has an active lifestyle seatbelt use: always HPI HPI HPI: FRANTZ MEYERS, is a 73 M who presents to the office today for HPI HPI Surgical H&P: Yes HPI: FRANTZ MEYERS, is a 73 M who presents to the office today for for surgical consultation regarding a greater than 1 month history of a bulge and tenderness in his left groin. He has had a remote right inguinal hernia repair by Dr. Pablo black.. I have assisted him in the past with a sigmoid colectomy for diverticular disease. Just within the past week he has had neuroma surgery of his left foot performed by .. 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 Patient states that he can palpate a lump and it is uncomfortable when it bulges. He also complains of a groin rash newer in onset. Finally he does have nocturia and he uses Flomax. He does have a local urologist . I have also assisted in the past with a hemorrhoidectomy September 2018 in attempt to solve rectal bleeding. He has had biopsies done for suspected radiation proctitis. The biopsies suggested normal mucosa. He has had a history of radiation treatment for prostate cancer. On December 26, 2018 I attempted rectal cauterization with argon beam. He is still having rectal bleeding problems. He has been seen back by his radiation oncologist Dr. Lundberg with no recommendations per patient ROS General General: No weight change, appetite, fatigue, colon cancer, breast cancer or weakness HEENT HEENT: No difficulty swallowing, eye injury, eye surgery, swollen glands or hoarseness Endo Endocrine: No thyroid disease, diabetes mellitus, thyroid cancer, Hair loss, heat intolerance or cold intolerance Skin Skin: No rash or changing moles Breast Breast: No left breast lump, right breast lump, nipple discharge, breast pain, abnormal mammogram, abnormal US or breast enlargement Musc Musculoskeletal: Yes back problems and arthritis; no rheumatoid arthritis, gout or joint pain Cardio Cardiovascular: No murmur, pacemaker, heart disease, atrial fibrillation, high blood pressure, heart attack, heart stent, palpitations, shortness of breat with exertion or chest pain Psych Psychiatric: Yes anxiety; no depression or hearing voices Resp Respiratory: No shortness of breath, No sleep apnea, No cough, No COPD, No asthma, No emphysema, No wheezing Gastro Gastrointestinal: No abdominal pain, No nausea or vomiting, No diarrhea, Yes constipation, No blood in stool, Yes acid reflux, No hemorrhoids, No ulcers, No gallbladder problem, No black,tarry stools Fredo Hematologic: Yes blood thinners, No blood disorders, No bleeding, No anemia, No blood clots Neuro Neurologic: No weakness Exam Const General: cooperative, healthy appearing, comfortable, no acute distress Nutritional Appearance: average body habitus Orientation: alert, awake HENWY Head: normal to inspection Chest Breast Palpation: No nipple discharge Resp Effort & Inspection: normal respiratory effort Auscultation: clear to auscultation bilaterally Cardio Rate: regular rate Rhythm: regular rhythm Heart Sounds: no murmurs GI Palpation: soft, no hepatosplenomegaly Other: Well-healed infraumbilical midline incision Other: Right groin: Well-healed transverse incision. Very slight generalized weakness. Left groin: Bulge noted slightly tender but reducible. Testicles are descended bilaterally. No testicular mass Mild erythematous bilateral groin rash noted Neuro Cognition: normal cognition Extrem General: no calf tenderness bilaterally Other: Left foot in a support boot because of the recent neuroma surgery Psych Affect: normal affect Assessment & Plan Problems 1. Inguinal hernia of left side without obstruction or gangrene K40.90 Plan Reducible left inguinal hernia. Groin candidiasis. History of remote right inguinal hernia repair. More recent left foot neuroma surgery. I recommended the patient a dose of Diflucan 200 mg orally for his candidiasis. In addition he has been prescribed nystatin powder to utilize twice daily if needed preoperatively. I proposed for him a open left inguinal herniorrhaphy with mesh. As noted he has had prostate radiation treatment and has had a sigmoid colectomy. I anticipate hopefully perform this with monitored anesthesia care and local anesthetic. He is aware of the technique, benefits, risks, alternatives. He has had an opportunity to ask and have questions answered. In addition he takes Flomax for bladder outlet obstruction. I have asked him to take that twice daily starting 3 days preoperatively. At this point he would like to schedule and proceed as noted. I appreciate the ongoing opportunity of assisting with his surgical care. CC: Dr. Warner Levin M.D., F.A.C.S. Medications New: nystatin 1 applic topical BID 60 grams 0RF fluconazole 200 mg PO DAILY 1 tab 0RF Coding Level of Care Code Off vis,est,level 4 Diagnoses Inguinal hernia of left side without obstruction or gangrene K40.90 05/04/19 0939 <Electronically signed by Galen long MD> Date _ Galen Levin MD I have re-examined the patient. There are no clinical changes since date of exam.
--- NOTE | 2019-05-18 09:42 | EKG12_ITS ---
Test Reason : PRE OP Blood Pressure : / mmHG Vent. Rate : 077 BPM Atrial Rate : 077 BPM P-R Int : 162 ms QRS Dur : 074 ms QT Int : 366 ms P-R-T Axes : 064 013 055 degrees QTc Int : 414 ms Normal sinus rhythm Normal ECG Confirmed by MARGARITA BUCKLEY, MOO ([id number]), assignment desk editor CARMEN MACIAS ([id number]) on 05/20/2019 11:53:40 AM Referred By: Galen Levin Confirmed By:MOO AVILA MD
[2019-05-18 10:15] LABS: Hematocrit 42.7 % (40-54); Hemoglobin 13.8 g/dL (13.0-16.5); Mean Corp Hgb Conc 32.3 g/dL (32-36); Mean Corpuscular Volume 89.7 fL (80-94); Mean Platelet Vol. 9.5 fl (6.2-12.0); Platelet Count 197 K/mm3 (150-450); RBC Distribution Width CV 14.1 % (11.6-14.6); RBC Distribution Width SD 46.5 fl (35.1-43.9); Red Blood Count 4.76 M/mm3 (4.6-6.2); White Blood Count 4.9 K/mm3 (4.4-11.0)
[2019-05-18 10:51] LABS: Anion Gap 4 (5-15); BUN 17 mg/dL (7-18); BUN/Creat Ratio 19.4 RATIO (10-20); Chloride 109 mmol/L (98-107); Creatinine, Serum 0.88 mg/dL (0.70-1.30); EST Glomerular Filtration Rate 90 mL/min (>60); Est Glom Filt Rate - Afr Amer 109 mL/min (>60); Glucose 98 mg/dL (74-106); Potassium 4.1 mmol/L (3.5-5.1); Sodium Level 142 mmol/L (136-145)
[2019-05-18 14:14] VITALS: BMI 28.7
[2019-05-20 08:10] VITALS: BP 124/73; PULSE 60; RESP 18; TEMP 37.1; O2SAT 100; BMI 27.8
[2019-05-20] MEDS: Cefazolin 2 GM in 0.9% Normal Saline 100 ML IV (08:55)
[2019-05-20] MEDS: Bupivacaine Mpf 0.5% 30 ML VIAL (09:52)
--- NOTE | 2019-05-20 09:53 | DCINST_ITS ---
Discharge Diet: Light diet - advance as tolerated - if you have questions about your diet instructions, please talk to you doctor. Discharge Activity: May Not Drive - for 3-5days or while taking narcotic pain medicine. May shower in (days): 1 Lifting Restrictions: 10 pounds Call your doctor if your incision/area has: Continuous Slow Oozing, Sudden Increased Bleeding, Increased Pain/ Swelling, Increased Redness, Foul Smelling Discharge Call your doctor if you observe: Fever of 101 or Higher Suture Line Care: Avoid Pulling/Pushing, Avoid Pinching/Bending Additional Dressing/Incision Instructions:: Change or remove dressing in 4 days. Leave steri-strips in place for 1 week. Allergies/Adverse Reactions: Allergies Sulfa (Sulfonamide Antibiotics) Adverse Reaction (Verified 05/20/19 08:08) Unknown Medications to take at Discharge Fluticasone Propionate [Allergy Relief] 15.8 ml NS QHS 09/24/16 Rizatriptan Benzoate [Maxalt] 10 mg PO PRN PRN 09/24/16 Sertraline HCl [Zoloft] 50 mg PO QHS 09/24/16 Simvastatin [Zocor] 20 mg PO QHS 09/24/16 Tamsulosin HCl [Flomax] 0.4 mg PO QHS 09/24/16 Etodolac 400 mg PO QHS 06/22/17 Multivitamin [Daily Multiple Vitamin] 1 ea PO QHS 02/04/18 lisinopril 10 mg tablet 10 mg PO QHS 09/09/18 Fluconazole 200 mg PO QHS 05/13/19 Orders to be completed after discharge: 12 Lead EKG [CVS] Time Frame: 05/13/19, Facility: [facility], Location: Cardiovascular Services Basic Metabolic Profile (BMP) Time Frame: 05/13/19, Facility: [facility], Location: Laboratory CBC-Complete Blood Cnt No Diff Time Frame: 05/13/19, Facility: [facility], Location: Laboratory Primary Care Physician: Warner Lewis MD [Primary Care Provider] - Test Results: Test results from this visit will be discussed in further detail at your follow- up appointment, if applicable. Please Follow Up With: Galen Levin MD - [phone] When: Call to make an appointment to be seen in about 10 days.
--- NOTE | 2019-05-20 09:54 | OP.PCM_ITS ---
Problem List (1) Inguinal hernia of left side without obstruction or gangrene Status: Acute Report of Operation Date of Procedure: 05/20/19 Pre-Operative Diagnosis: Symptomatic left inguinal hernia Post-Operative Diagnosis: Symptomatic indirect left inguinal hernia Surgery/Procedure Performed:: Araceli left inguinal herniorrhaphy Description of Surgical Findings:: Timeout informed consent was obtained. 73-year-old gent was taken the operating placement table underwent monitored anesthesia care. Patient received 2 g of Ancef intravenously preoperatively. The left groin sterilely prepped draped. 1% lidocaine mixed 50-50 with 0.5% Marcaine was used as local anesthetic. All 30 cc was used. Transverse incision was created in the left groin sharp dissection carried down through the subtenons tissues hemostasis team electrocautery the external oblique and external ring identified the fascia was incised ileal nerve identified protected circumferential control was taken to the cord structures and a [place] drain placed this allowed for elevation excess cremasteric fibers were transected using electrocautery. The indirect hernia sac was identified and was dissected free and inverted a cord lipoma was identified it was dissected free and inverted. A 3-0 Ethibond was initiated at the pubic tubercle and then approximated the transversalis fascia to the internal ring reapproximating the internal ring. A Bard preshaped keyhole mesh measuring 10 x 4.5 cm was utilized. Lot number [id number] reference #[id number] with an expiry date of 01/05/2024 was utilized. It was wrapped around the internal ring secured to itself with 3-0 Ethibond. The tails were slightly shortened in place beneath the external oblique. The mesh was secured to the pubic tubercle the shelving edge of Poupart's and the aponeurosis of the internal/external oblique. Good positioning of the securement was achieved. The external oblique was approximated with a running 3-0 Vicryl. Skin edges approximated running septic of 4-0 Monocryl. Steri-Strips Telfa and OpSite dressings applied. Sponge and instrument and needle counts were reported to surgically correct. Blood loss minimal. Specimens none. Drains none. Blood loss minimal. The patient was taken to the recovery area in satisfactory addition without apparent complication Galen Levin M.D., F.A.C.S. Type of Anesthesia:: Local MAC Anesthesiologist: Elen Rivera
[2019-05-20 10:04] VITALS: BP 100/66; BP 124/73; PULSE 67; RESP 16; TEMP 36.7; O2SAT 96
[2019-05-20 10:10] VITALS: BP 124/73; BP 95/71; PULSE 71; RESP 16; O2SAT 96
[2019-05-20 10:15] VITALS: BP 106/70; BP 124/73; PULSE 67; RESP 16; O2SAT 97
[2019-05-20 10:20] VITALS: BP 111/77; BP 124/73; PULSE 69; RESP 16; TEMP 36.7; O2SAT 97
[2019-05-20] MEDS: Lactated Ringers 1,000 ML 100 ML IV (10:24)
[2019-05-20 11:24] VITALS: BP 120/76; BP 124/73; PULSE 73; RESP 16; O2SAT 99
== END 2019-05-20 11:35 | disposition home or self-care (01) ==
LOC: SDC 07:37 → AC 07:38
PROVIDERS: Family Provider Family Medicine; PCP Family Medicine; Referring Provider Surgery; Visit Provider Surgery
PROC: (CPT 49505; principal; 2019-05-20 09:00)
DX: K40.90 Unilateral inguinal hernia, without obstruction or gangrene, not specified as recurrent (principal); D17.6 Benign lipomatous neoplasm of spermatic cord; F32.9 Major depressive disorder, single episode, unspecified; I10 Essential (primary) hypertension; E78.00 Pure hypercholesterolemia, unspecified; Z85.46 Personal history of malignant neoplasm of prostate; Z87.19 Personal history of other diseases of the digestive system; Z92.3 Personal history of irradiation; Z79.899 Other long term (current) drug therapy; Z87.891 Personal history of nicotine dependence
CPT/HCPCS: 49505; 36415; 80048; 85027; 93005; J7120; C1781; J2405

== ENCOUNTER 2019-05-29 21:46 | Emergency (ER) | payer MEDICARE, SELFPAY ==
[2019-05-29 21:48] VITALS: BP 136/74; PULSE 75; RESP 18; TEMP 36.6; O2SAT 98; BMI 26.9
--- NOTE | 2019-05-29 22:41 | ED.VISSUMM ---
- ER Visit Summary Date of Service: 05/29/19 Chief Complaint: Fall History of Present Illness: The patient is a 73 M who fell going down stairs. He stepped on 1 of the stairs awkwardly and fell. He landed on his right thigh. He complains of pain and swelling to the area. He also has pain to his lateral right ankle and he recently had left inguinal surgery and was concerned about the wound. He has not noted any drainage, bleeding, or pain to the area. Denies any other injuries or complaints. Physical Examination: Afebrile and vital signs unremarkable. Head and neck are atraumatic. Upper extremities unremarkable. Right lateral mid thigh is tender to palpation with an overlying abrasion. There is some induration but no fluctuance. Compartments are otherwise soft. Right lateral ankle shows an abrasion. Neurovascularly intact. Otherwise unremarkable Test Results: Right femur x-rays pending. Emergency Department Course and Treatment: Patient declined pain medicine. We will check x-rays of his right femur. Will clean and dress his wounds per nursing. X-rays negative. Treat with rest, ice, elevation, compression. Monitor abrasions for any complications. Follow-up with primary care. Abdominal incision is unremarkable. No indication for testing or further evaluation. Treatment Plan: As above Disposition: Discharge Impression: 1. Right thigh contusion 2. Right ankle abrasion This note was generated with [employer] dictation software. It may contain incorrect words, spelling, and punctuation that were not noted in review of the chart prior to signing ED Disposition - Plan for ED Patient: Referrals: Warner Lewis MD [Primary Care Provider] -
--- NOTE | 2019-05-29 23:07 | RAD_ITS ---
STUDY: X-RAY - RIGHT FEMUR REASON FOR STUDY: Male, 73 years old. Right leg pain TECHNIQUE: 2 view(s) of the femur. COMPARISON: None. FINDINGS: Normal visualized femur. Normal visualized soft tissue structure. There is no demonstrated fracture or destructive process. RAD/Femur Min 2 Views IMPRESSION: Normal x-ray examination of the femur. Electronically Signed: Eric Reyes MD at 23:22 EST , Service support ,
--- NOTE | 2019-05-29 23:38 | ED.DEP ---
ED Disposition - Plan for ED Patient: Instructions: FALL, Mechanical, Hematoma Referrals: Warner Lewis MD [Primary Care Provider] -
[2019-05-29 23:59] VITALS: BP 139/74; PULSE 76; RESP 18; O2SAT 97
== END 2019-05-30 | disposition home or self-care (01) ==
PROVIDERS: Emergency Provider Emergency Medicine; Family Provider Family Medicine; PCP Family Medicine
DX: S70.11XA Contusion of right thigh, initial encounter (principal); S90.511A Abrasion, right ankle, initial encounter; W10.9XXA Fall (on) (from) unspecified stairs and steps, initial encounter; Y93.9 Activity, unspecified; Y92.9 Unspecified place or not applicable; I10 Essential (primary) hypertension; E78.00 Pure hypercholesterolemia, unspecified; Z79.899 Other long term (current) drug therapy; Z87.891 Personal history of nicotine dependence
CPT/HCPCS: 73552; 99282

== ENCOUNTER → 2019-11-13 10:17 | Outpatient (CLI) | payer MEDICARE, SELFPAY ==
[2019-11-13 11:52] LABS: PSA,Total- Diagnostic 1.15 ng/mL (0.0-4.0)
== END ==
PROVIDERS: PCP Family Medicine; Referring Provider Urology; Visit Provider Urology
DX: C61 Malignant neoplasm of prostate (principal)
CPT/HCPCS: 36415; 84153

== ENCOUNTER → 2020-05-16 10:45 | Outpatient (CLI) | payer MEDICARE, SELFPAY ==
[2020-05-16 11:53] LABS: PSA,Total- Diagnostic 1.23 ng/mL (0.0-4.0)
== END ==
PROVIDERS: PCP Family Medicine; Referring Provider Urology; Visit Provider Urology
DX: C61 Malignant neoplasm of prostate (principal)
CPT/HCPCS: 36415; 84153

== ENCOUNTER 2020-07-08 05:47 | Day surgery (SDC) | payer MEDICARE, SELFPAY ==
--- NOTE | 2020-07-08 | NEUR_PTH ---
PATIENT: FRANTZ MEYERS [place] [facility] [id number] AGE/SX: 75/M ROOM: RE07/08/[address]: Dr. Warner Leach DPM : 1945 BED: DIS: 07/08/2020 SPEC #: [id number] RECD: 07/08/20 14:48 STATUS: JOHN REAliya #: [id number] DENISE: 07/08/20 00:[address]: Warner Leach DEPT: SURGICAL PATHOLOGY RECD BY: Bret Jimenez ENTERED: 07/11/20 10:52 SP TYPE: NEUROMA OTHR DR: Dr. Warner Lewis MD Tissues: NEUROMA Procedures: Surgery Specimen Level III HEADER OPERATION: Excision second and third intermetatarsal space neuromas of foot PRE-OP DIAGNOSIS: Wilkins neuroma right TISSUE SUBMITTED: Neuroma of right foot MICROSCOPIC DIAGNOSIS Soft tissue right foot, excision: Consistent with neuroma. AM:davi 07/12/2020 MICROSCOPIC DESCRIPTION Slides are reviewed. GROSS DESCRIPTION Received in fixative is one container labeled with the patient's name and designated soft tissue of second and third intermetatarsal space, right foot. The specimen consists of multiple irregular fragments of white-yellow soft tissue that in aggregate measure 3.8 x 2 x 0.2 cm. The specimen is sectioned and totally submitted in one cassette. / AM:davi 07/11/20 TC:3 CPT: 02304
[2020-07-08 06:24] VITALS: BP 125/79; PULSE 70; RESP 16; TEMP 36.3; O2SAT 100; BMI 28.3
[2020-07-08] MEDS: Lactated Ringers 1,000 ML 100 ML IV (06:31)
[2020-07-08] MEDS: Cefazolin 2 GM in 0.9% Normal Saline 100 ML IV (07:25)
[2020-07-08] MEDS: Bupivacaine Mpf 0.5% 30 ML VIAL (08:30)
--- NOTE | 2020-07-08 09:03 | PCM.OPRPT ---
Report of Operation Date of Procedure: 07/08/20 Pre-Operative Diagnosis: 2nd and 3rd intermetatarsal neuromas, right foot Post-Operative Diagnosis: Same Surgery/Procedure Performed:: Exicision of 2nd and 3rd intermetatarsal neuromas right foot residential framing carpenter: yes - Dr. Nancy Dominguez Type of Anesthesia:: General, Local Specimen's removed: Exicsed 2nd and 3rd intermetatarsal neuromas from right foot sent to pathology Estimated Blood Loss (mL): 1mL Description of Procedure: Indications: This is a 75 year old male with history of chronic right foot pain at level of the 2nd and 3rd intermetatarsal/digital spaces. He has undergone conservative / nonsurgical care (including but not limited to injection therapy, foot orthotics, rest, activity modifications, changes in shoegear, anti-inflammatories) but continues to have significant limiting pain. He elected to proceed with surgical intervention of excision of the 2nd and 3rd intermetatarsal space neuromas (advised patient she would have numbness to the plantar foot). This was discussed with him in great detail. He agreed with this plan, reviewed all of the possible benefits vs risks, goal, expectations, and typical healing time. He was able to repeat these back, all of his questions were answered. The consent forms were reviewed with him and he agreed signed them. No guarantees were given nor implied. He had the same procedure done on the left foot in 2019 and relates he has not had pain or any symptoms since - relates foot has been doing great! Operative procedure: The patient was brought back to the operating room and was placed on the operating room table in the supine position. Patient was carefully secured the the operating room table with a safely belt around his waist. A time out was performed and the patient was properly identified and the surgical plan was confirmed. The patient received 2g of IV Cefazolin for antibiotic prophylaxis. A well padded pneumatic tourniquet was applied around the right ankle. The patient did receive general anesthesia per the anesthesiologist. A total of 15mL of 0.5% Bupivacaine plain was given as a local block to the 2nd and 3rd intermetatarsal spaces on the right foot. The right foot was scrubbed, prepped, draped in the usual aseptic fashion. The right foot was exsanguinated using an Esmarch bandage and the ankle pneumatic tourniquet was inflated to 250mmHg. Attention was directed to the 2nd intermetatarsal space, where a longitudinal incision was made using a 15 blade on the dorsal aspect. Careful dissection was completed down to the deep transverse metatarsal ligament which was released in sharp fashion. A large plantar neuroma was identified localized to the site, which was yellow and degenerative. There were findings consistent with perineural fibrosis to the lesion. This was carefully dissected out, removing the proximal nerve and also the distal branches to the 2nd and 3rd toes at the base of the toes. This was passed from the surgical site and was sent to pathology for further evaluation. The proximal nerve stump was healthy, viable and was carefully buried into the intrinsic musculature of the foot. All other tissue to the site appeared healthy and viable with no other abnormality present to this site. The site was flushed out with copious amounts of normal saline solution. The subcutaneous tissue was reapproximated using 4-0 Vicryl. The skin was reapproximated using 4-0 Monocryl. Attention was directed to the 3rd intermetatarsal space, where a longitudinal incision was made using a 15 blade on the dorsal aspect. Careful dissection was completed down to the deep transverse metatarsal ligament which was released in sharp fashion. A plantar neuroma was identified localized to the site, which was yellow, degenerative and had significant fatty tissue around it. There were findings consistent with perineural fibrosis to the lesion. This was carefully dissected out, removing the proximal nerve and also the distal branches to the 3rd and 4th toes at the base of the toes. This was passed from the surgical site and was sent to pathology for further evaluation. The proximal nerve stump was healthy, viable and was carefully buried into the intrinsic musculature of the foot. All other tissue to the site appeared healthy and viable with no other abnormality present to this site. The site was flushed out with copious amounts of normal saline solution. The subcutaneous tissue was reapproximated using 4-0 Vicryl. The skin was reapproximated using 4-0 Monocryl. An additional 10mL of 0.5% Bupivacaine plain was given as a local nerve block around the surgical sites to aid with post op pain control. Cavilon was painted to the sutured skin edges and steristrips were applied across the sutures skin incision sites. All vital structures including all vital musculoskeletal and neurovascular structures were properly identified and protected/retracted as necessary. The pneumatic tourniquet was deflated (total tourniquet time was 59 minutes), and there was immediate return vascular flow to the foot, CFT < 2 seconds to all toes, normal temperature gradient, pedal pulses intact. Hemostasis was achieved. A dressing was applied which consisted of Betadine soaked adaptic, 4x4 gauze, kerlix, and jovanni bandage. The patient tolerated the above operative procedure well at the anesthesia well with no complication. The patient was transported to the recovery room with vital signs stable and in good condition. Post operative orders were placed. Post operative instructions were reviewed with him as well as with his who was here with him today. No weightbearing to the right forefoot, keep foot elevated for at least 50 minutes of every hour, keep dressing clean, dry and intact. Prescription for Vicodin 5mg/300mg was prescribed: 1-2 tabs PO q 6 hours PRN pain. He is to follow up with me within 1 week or sooner if needed. Grafts/Implants Used: None - Complications None
--- NOTE | 2020-07-08 09:04 | DCINST_ITS ---
Discharge Diet: Light diet - advance as tolerated Discharge Activity: May Not Drive Weight Bearing Status: No weight bearing - No weightbearing to the toes or ball of right foot, if you need to put weight on right foot only put weight on the heel Keep extremity elevated above heart level: Right Leg - Keep right foot elevated for at least 50 minutes of every hour Call your doctor if your incision/area has: Continuous Slow Oozing, Sudden Increased Bleeding, Foul Smelling Discharge Call your doctor if you observe: Fever of 101 or Higher, Shortness of breath, Chest pain, Calf discomfort, Uncontrolled pain, - - decreased breathing, fast heart rate, tremor, agitation, mental impairment, or any other abnormalities Cleanse incision/area with: Do not get Incision Wet, Keep Dressing Clean & Dry Allergies/Adverse Reactions: Allergies Sulfa (Sulfonamide Antibiotics) Adverse Reaction (Verified 07/08/20 06:22) Unknown Medications to take at Discharge Fluticasone Propionate [Allergy Relief] 15.8 ml NS QHS 09/24/16 Sertraline HCl [Zoloft] 50 mg PO QHS 09/24/16 Simvastatin [Zocor] 20 mg PO QHS 09/24/16 Tamsulosin HCl [Flomax] 0.4 mg PO QHS 09/24/16 Etodolac 400 mg PO QHS 06/22/17 Multivitamin [Daily Multiple Vitamin] 1 ea PO QHS 02/04/18 lisinopril 10 mg tablet 10 mg PO QHS 09/09/18 Hydrocodone/Acetaminophen [Vicodin 5-300 mg Tablet] 1 tab PO Q6H PRN PRN 3 Days #10 tab 07/08/20 The following prescriptions were given: Hydrocodone/Acetaminophen [Vicodin 5-300 mg Tablet] 1 tab PO Q6H PRN PRN 3 Days #10 tab PRN Reason: Pain Score 4-10 Prescription Printed Primary Care Physician: Warner Lewis MD [Primary Care Provider] - Test Results: Test results from this visit will be discussed in further detail at your follow- up appointment, if applicable. Please Follow Up With: Warner Leach DPM - Call Dr. Leach sooner if needed - [phone] - cell When: 1 week, sooner if needed
[2020-07-08 09:09] VITALS: BP 125/79; BP 138/86; PULSE 79; RESP 16; TEMP 36.2; O2SAT 100
[2020-07-08 09:15] VITALS: BP 125/79; BP 139/81; PULSE 77; RESP 16; O2SAT 97
[2020-07-08 09:30] VITALS: BP 125/79; BP 133/78; PULSE 76; RESP 16; O2SAT 99
[2020-07-08 09:44] VITALS: BP 125/79; BP 137/86; PULSE 72; RESP 16; TEMP 36.2; O2SAT 99
[2020-07-08 10:36] VITALS: BP 124/68; BP 125/79; PULSE 67; RESP 18; TEMP 36.3; O2SAT 100
== END 2020-07-08 10:48 | disposition home or self-care (01) ==
LOC: SDC 05:48 → AC 05:48
PROVIDERS: PCP Family Medicine; Referring Provider Podiatrist; Visit Provider Podiatrist
PROC: (CPT 28080; principal; 2020-07-08 07:15)
DX: G57.61 Lesion of plantar nerve, right lower limb (principal); Z20.828 Contact with and (suspected) exposure to other viral communicable diseases; I10 Essential (primary) hypertension; E78.00 Pure hypercholesterolemia, unspecified; Z85.46 Personal history of malignant neoplasm of prostate; Z79.899 Other long term (current) drug therapy; Z87.891 Personal history of nicotine dependence
CPT/HCPCS: 01470; 28080 ×2; 87426; 88304; C9803; J7120; J2405

== ENCOUNTER → 2020-07-21 11:26 | Outpatient (CLI) | payer MEDICARE, SELFPAY ==
[2020-07-08 06:24] VITALS: BMI 28.3
--- NOTE | 2020-07-21 11:28 | VDLE_ITS ---
Reason For Study: Calf pain RIGHT GSV is normal. CFV is compressible, spontaneous, phasic, competent and demonstrates normal augmentation. FV is compressible, spontaneous, phasic, competent and demonstrates normal augmentation. POP V is compressible, spontaneous, phasic, competent and demonstrates normal augmentation. T/P Trunk is compressible. RT PerV is compressible. Acute deep vein thrombosis is noted in the right PTV and SoleusV. Procedure This is a venous duplex using B-mode, color flow and spectral Doppler. Exam performed in department. A preliminary report was called and/or faxed to [facility]. Pt taken to ED for treatment. Interpretation Summary Acute deep vein thrombosis is noted in the right posterior tibial vein. Acute deep vein thrombosis is noted in the right soleus vein. The remainder of the right lower extremity deep venous system is patent and compressible. Valvular competence appears intact within the proximal deep venous system on the right . The right great saphenous vein appears patent and compressible segmentally. Ordering Physician: Warner Leach Referring Physician: Warner Lewis Performed By: Madyson Barrett RVT
== END ==
PROVIDERS: PCP Family Medicine; Referring Provider Podiatrist; Visit Provider Podiatrist
DX: I82.401 Acute embolism and thrombosis of unspecified deep veins of right lower extremity (principal); M79.661 Pain in right lower leg; I10 Essential (primary) hypertension; E11.9 Type 2 diabetes mellitus without complications; Z79.82 Long term (current) use of aspirin; Z79.899 Other long term (current) drug therapy; Z87.891 Personal history of nicotine dependence
CPT/HCPCS: 85025; 85610; 85730; 93971; 99282

== ENCOUNTER 2020-07-21 12:02 | Emergency (ER) | payer MEDICARE, SELFPAY ==
[2020-07-21 12:03] VITALS: BP 148/100; PULSE 66; RESP 18; TEMP 35.3; O2SAT 98; BMI 28.7
[2020-07-21 13:09] LABS: Absolute Lymphocyte Count 0.89 X10^3/uL (0.83-4.51); Absolute Neutrophil Count 3.4 X10^3/uL (2.0-7.7); Basophil# 0.04 X10^3/uL; Basophil% 0.8 % (0-1); Eosinophil# 0.19 X10^3/uL; Eosinophils% 3.8 % (0-5); Hematocrit 41.8 % (40-54); Hemoglobin 13.6 g/dL (13.0-16.5); Lymphocyte # 0.89 X10^3/ul (4.0); Mean Corp Hgb Conc 32.5 g/dL (32-36); Mean Corpuscular Hgb 29.1 pg (27.0-32.0); Mean Corpuscular Volume 89.5 fL (80-94); Monocyte# 0.39 X10^3/uL; Monocyte% 7.9 % (0-10); NRBC Flagged by Analyzer 0 % (0-5); Neutrophil # 3.42 X10^3/uL (2.7-7.7); Neutrophil % 69.3 % (47-70); Platelet Count 202 K/mm3 (150-450); RBC Distribution Width SD 46.1 fl (35.1-43.9); Red Blood Count 4.67 M/mm3 (4.6-6.2); White Blood Count 4.9 K/mm3 (4.4-11.0)
[2020-07-21 13:14] LABS: International Normalized Ratio 1.1; Prothrombin Time (Protime)PT. 13.3 SECONDS (11.7-14.9)
[2020-07-21 13:15] LABS: Partial Thromboplast Time 26.1 Seconds (24.1-36.2)
--- NOTE | 2020-07-21 13:23 | ED.DCSUM_ITS ---
History of Present Illness Chief Complaint: Edema Informant: Patient Narrative: 75-year-old male with past medical history of hypertension and diabetes presents with concern for right lower extremity swelling and DVT. Patient had podiatric surgery done 2 weeks ago and began having pain in his leg shortly thereafter. Was sent by his biomedical service engineer for ultrasound today which shows that he has a right DVT. Patient has no history of DVTs. He denies any chest pain or shortness of breath. No history of GI bleeding. Past Medical History - Allergies and Home Meds Allergies/Adverse Reactions: Allergies Sulfa (Sulfonamide Antibiotics) Adverse Reaction (Verified 07/21/20 12:05) Unknown Primary Care Physician: Warner Lewis MD [Primary Care Provider] - Prior records reviewed: Yes Past Medical History: - - HTN and DMII Surgical History: - - orthopedic Lives: Spouse/ Significant Other Smoking Status: Former smoker Alcohol: None Drugs: None Review of Systems General: Denies: Chills, Fever, Sweats Eyes: Denies: Visual changes - bilaterally, Diplopia ENT: Denies: Rhinorrhea, Sore throat Cardiovascular: Denies: Chest pain, Palpitations Respiratory: Denies: Dyspnea, Cough, Dyspnea on exertion Gastrointestinal: Denies: Abdominal pain, Nausea, Vomiting, Diarrhea, Melena, Hematochezia Genitourinary: Denies: Dysuria, Hematuria, Frequency Musculoskeletal: Reports: Myalgias. Denies: Back pain, Extremity Pain Skin: Denies: Rash, Wounds Neurological: Denies: Headache, Weakness, Numbness Physical Exam Vital Signs/Narrative: Vital Signs Temp Pulse Resp BP Pulse Ox 07/21/20 12:03 95.6 F L 66 18 148/100 H 98 Inital Vital Signs reviewed: Yes General: Well nourished, Well developed, No Acute Distress Head: Normocephalic, Atraumatic Eyes: Perrl, EOMI ENT: Moist mucous membranes, No rhinorrhea Neck: Supple, Nontender Cardiovascular: Regular rate, Regular rhythm, No murmurs Respiratory: No distress, CTA bilaterally, Chest nontender Abdomen: Soft, Nontender, Nondistended, Normal bowel sounds Back: Nontender, Normal Inspection Extremities: Edema, Calf Tenderness Skin: Normal color, No rash Neurological: Alert, Oriented x3, Cranial nerves II-XII grossly intact, Normal Strength, Normal Sensation Psychological: Normal affect, Normal Mood Diagnostic/Tx/Re-eval Laboratory Data 07/21/20 07/21/20 13:00 13:00 WBC 4.9 RBC 4.67 Hgb 13.6 Hct 41.8 MCV 89.5 MCH 29.1 MCHC 32.5 RDW Std Deviation 46.1 H RDW Coeff of Akash 14.0 Plt Count 202 MPV 9.0 Immature Gran % (Auto) 0.200 Neut % (Auto) 69.3 Lymph % (Auto) 18.0 L Bledsoe % (Auto) 7.9 Eos % (Auto) 3.8 Baso % (Auto) 0.8 Absolute Neuts (auto) 3.4 Absolute Lymphs (auto) 0.89 Nucleated RBC % 0 PT 13.3 INR 1.1 APTT 26.1 - Medical Decision Making Patient appears well and nontoxic. Vital signs within normal limits. Lab work normal. Patient be started on Eliquis and follow-up with his primary care provider Dr. Sauceda. Stable at time of discharge. Impression: 1. RLE DVT ED Disposition - Plan for ED Patient: Disposition: Home or Assisted Living Instructions: ED Deep Vein Thrombosis (DVT) Prescriptions: Apixaban [Eliquis] 5 mg PO BID #74 tab Prescription Printed Referrals: Warner Lewis MD [Primary Care Provider] - 2 Days
== END 2020-07-21 13:35 | disposition home or self-care (01) ==
PROVIDERS: Emergency Provider Emergency Medicine; PCP Family Medicine
DX: I82.401 Acute embolism and thrombosis of unspecified deep veins of right lower extremity (principal); I10 Essential (primary) hypertension; E11.9 Type 2 diabetes mellitus without complications; Z79.82 Long term (current) use of aspirin; Z79.899 Other long term (current) drug therapy; Z87.891 Personal history of nicotine dependence
CPT/HCPCS: 85025; 85610; 85730

== ENCOUNTER → 2020-11-21 11:10 | Outpatient (CLI) | payer MEDICARE, SELFPAY ==
[2020-11-21 12:49] LABS: PSA,Total- Diagnostic 1.09 ng/mL (0.0-4.0)
== END ==
PROVIDERS: PCP Family Medicine; Referring Provider Urology; Visit Provider Urology
DX: C61 Malignant neoplasm of prostate (principal)
CPT/HCPCS: 36415; 84153

== ENCOUNTER → 2021-01-05 06:48 | Outpatient (CLI) | payer MEDICARE, SELFPAY ==
[2020-12-22 09:56] VITALS: BMI 26.9
--- NOTE | 2021-01-05 06:49 | ECHOD_ITS ---
Reason For Study: CHEST PAIN Procedure This was a 2D Doppler, Color Flow transthoracic echocardiogram. The study was technically difficult. Exam performed in department. Left Ventricle Normal LV size. Left ventricular systolic function is normal. The estimated ejection fraction is 60 %. No evidence for diastolic dysfunction. No regional wall motion abnormalities noted. Right Ventricle Normal RV size. Normal systolic function. Atria Normal left atrium. Normal right atrium. No doppler evidence for ASD. Bubble contrast study negative for right to left interatrial shunt. Mitral Valve There is no mitral annular calcification. Normal mitral valve. Mild (1+) eccentric mitral valve insufficiency. Tricuspid Valve Normal tricuspid valve. Trivial tricuspid valve insufficiency. Right ventricular systolic pressure estimated to be 30 mmHg. Aortic Valve Trisinus/trileaflet aortic valve. Mild focal aortic valve thickening. Pulmonic Valve The pulmonic valve is not well visualized. Great Vessels Normal sized aortic root. Pericardium/Pleural No pericardial effusion. Medication Performed a rapid injection of agitated mix of 9 cc saline and 1cc air to assess for atrial septal defect. MMode/2D Measurements & Calculations LVIDd: 4.7 cm IVSd: 0.96 cm Ao root diam: 3.1 cm LVIDs: 3.3 cm LVPWd: 0.96 cm RVDd: 3.7 cm FS: 31.2 % LAV(MOD-bp): 39.5 ml LVAd ap4: 31.4 cm2 SV(MOD-sp4): 65.8 ml LAV(MOD-bp) Indexed: 20.8 ml/m2 LVLd ap4: 7.8 cm LAV(MOD-sp2): 43.2 ml EDV(MOD-sp4): 104.5 ml LAV(MOD-sp4): 36.1 ml EDV(sp4-el): 107.9 ml LVAs ap4: 17.3 cm2 LVLs ap4: 6.4 cm ESV(MOD-sp4): 38.7 ml ESV(sp4-el): 39.7 ml EF(MOD-sp4): 62.9 % EF(sp4-el): 63.2 % SV(sp4-el): 68.3 ml LA A4 area: 15.0 cm2 LA dimension(2D): 3.5 cm RA A4 area: 13.7 cm2 Time Measurements MV dec time: 0.31 sec Doppler Measurements & Calculations MV E max henry: 67.3 cm/sec Lat Peak E' Henry: 12.0 cm/sec Med Peak E' Henry: 9.8 cm/sec MV A max henry: 55.9 cm/sec E/E' lat: 5.6 E/E' med: 6.9 MV E/A: 1.2 Ao V2 max: 114.3 cm/sec LV V1 max: 99.1 cm/sec PA V2 max: 129.4 cm/sec Ao max P.2 mmHg LV V1 max P.9 mmHg TR max henry: 261.6 cm/sec TR max P.4 mmHg ECHO/Echo Complete Interpretation Summary The study was technically difficult. Left ventricular systolic function is normal. The estimated ejection fraction is 60 %. Mild (1+) eccentric mitral valve insufficiency. Trivial tricuspid valve insufficiency. Mild focal aortic valve thickening. Right ventricular systolic pressure estimated to be 30 mmHg. No evidence for diastolic dysfunction. Bubble contrast study negative for right to left interatrial shunt. Ordering Physician: Javier Maurice Referring Physician: MEKA OVERTON Performed By: Amanda Lubin RDCS
--- NOTE | 2021-01-05 09:00 | STRESSREP_ITS ---
Stress Test Report Date: 01-05-2021 Procedure: Exercise tolerance test/imaging study Indications: Chest pain; CAD Consent: Per the patient Procedure: The patient exercised on a Yash protocol for 10-minute completing Stage III and 1 minute of Stage IV achieving a peak heart rate of 142 bpm (98% predicted maximal heart rate) with a peak blood pressure 152/80 mmHg and a peak MET capacity of 11 METs. The baseline ECG demonstrated normal sinus rhythm. The peak exercise ECG demonstrated somatic/motion artifact with no obvious ECG changes. There were no cardiac dysrhythmias pretest, during exercise, or recovery. The functional capacity was considered good. There was no complaint of chest discomfort during exercise or recovery. The examination was discontinued secondary to dyspnea. Impression: 1. Technically adequate (percent predicted maximal heart rate greater than 85%) exercise tolerance test 2. Peak exercise ECG with somatic/motion artifact with no obvious ECG changes 3. There were no cardiac dysrhythmias pretest, during exercise, or recovery 4. Nuclear images pending Myocardial perfusion imaging study: Technique: The patient was injected with 12.0 mCi of technetium 99m Cardiolite and subsequently rest SPECT Cardiolite nuclear imaging was obtained in the horizontal long, vertical long, and short axis views. The patient exercised on a Yash protocol for 10-minute completing Stage III and 1 minute of Stage IV achieving a peak heart rate of 142 bpm (98% predicted maximal heart rate) with a peak blood pressure 152/80 mmHg and a peak MET capacity of 11 METs. The patient was injected with 36.0 mCi of technetium 99m Cardiolite and subsequently stress SPECT Cardiolite nuclear imaging was obtained in the horizontal long, vertical long, and short axis views. A gated Cardiolite study at peak stress was obtained. Interpretation: Rest and stress SPECT Cardiolite nuclear imaging status post realignment, normalization, and attenuation correction, demonstrates the appearance of relative uniform tracer uptake and myocardial perfusion appearing within normal limits. There is end systolic thickening and brightening. The gated Cardiolite study demonstrates myocardial thickening and inward wall motion. The reported LVEF is 63%. Impression: 1. Rest and stress SPECT Cardiolite nuclear imaging demonstrate relative unif orm tracer uptake and myocardial perfusion appearing within normal limits. 2. The gated Cardiolite study reports an LVEF of 63%. This note was generated with [employer] software. It may contain incorrect words, spelling, and punctuation that were not noted in checking the note before signing.
== END ==
PROVIDERS: PCP Family Medicine; Referring Provider Internal Medicine Cardiovascular Disease; Visit Provider Internal Medicine Cardiovascular Disease
DX: R07.9 Chest pain, unspecified (principal); E78.2 Mixed hyperlipidemia; I10 Essential (primary) hypertension; Z86.718 Personal history of other venous thrombosis and embolism
CPT/HCPCS: 78452; 93017; 93306; A9500; A4216

== ENCOUNTER → 2021-05-22 12:06 | Outpatient (CLI) | payer MEDICARE, SELFPAY ==
[2021-05-22 14:11] LABS: PSA,Total- Diagnostic 1.11 ng/mL (0.0-4.0)
== END ==
PROVIDERS: PCP Family Medicine; Referring Provider Urology; Visit Provider Urology
DX: C61 Malignant neoplasm of prostate (principal)
CPT/HCPCS: 36415; 84153

== ENCOUNTER 2021-09-14 16:28 | Emergency (ER) | payer MEDICARE, SELFPAY ==
[2021-09-14 16:29] VITALS: BP 159/90; PULSE 74; RESP 15; TEMP 36.6; O2SAT 99; BMI 26.9
--- NOTE | 2021-09-14 16:44 | EX.ED.DYSGE1 ---
HPI History of Present Illness Chief Complaint: Chest Pain Detail of Chief Complaint: Vertigo not chest pain Informant: patient Onset/Context/Timing Onset: Today ( when he was lying in bed and turned to the right) and Yesterday (2300 when he went to the restroom to void) Context: Sudden Onset Timing: Intermittent Quality: Room spinning Location: Home Current Severity: Gone Maximum Severity: Severe Worsened by: Change in position Relieved by: Closing his eyes Associated Symptoms Associated Symptoms: Nausea and diaphoresis Narrative Narrative: Patient is an elderly male with history of unspecified intermittent left-sided chest pain, essential hypertension, mixed lipidemia and GERD who presents with acute vertigo that started last evening when he went to void at 2300. He states he had symptoms for a while. He denied double vision. He denied blurred vision. He has chronic decreased hearing left ear. He did report being sweaty. He had trouble voiding. When he went to bed and was supine and turned to the right his vertigo resumed. When he closed his eyes it resolved. He became nauseous and diaphoretic. Upon awakening he had no symptoms. His had no symptoms since early this morning. He denies trouble with speech or swallowing. Denies paresthesia, anesthesia medics. He denied walking to the right or left. He does report history of vertigo in the past. Prior similar symptoms: Yes Recent Illness/Hospitalization: No PFSH PFS Medical History Chest pain, unspecified Environmental allergies Essential hypertension GERD (gastroesophageal reflux disease) History of DVT (deep vein thrombosis) History of prostate cancer Hyperlipidemia IBS (irritable bowel syndrome) Inguinal hernia of left side without obstruction or gangrene Internal hemorrhoids Melanoma Mixed hyperlipidemia Prostate cancer Radiation proctitis Rectal bleeding Spinal stenosis Tinea cruris Home Medications fluticasone propionate 15.8 ml NS QHS 09/24/16 [History Last Taken Unknown] sertraline 50 mg PO QHS 09/24/16 [History Last Taken Unknown] simvastatin 20 mg PO QHS 09/24/16 [History Last Taken Unknown] tamsulosin 0.4 mg PO QHS 09/24/16 [History Last Taken 12/24/16] etodolac 400 mg PO QHS 06/22/17 [History Last Taken Unknown] multivitamin 1 ea PO QHS 02/04/18 [History Last Taken Unknown] amlodipine 5 mg PO DAILY 07/21/20 [History Last Taken Unknown] aspirin 81 mg PO DAILY@0800 07/21/20 [History Last Taken Unknown] rizatriptan 10 mg PO .X1 PRN 07/21/20 [History Last Taken Unknown] Allergy/AdvReac Type Severity Reaction Status Date / Time Sulfa (Sulfonamide AdvReac Unknown Verified 09/14/21 16:31 Antibiotics) Family History Brother Cancer prostate Surgical History H/O colonoscopy History of colonoscopy (~01/2018) History of foot surgery History of hemorrhoidectomy (~09/2018) History of inguinal hernia repair (~05/2019) History of partial colectomy S/P inguinal hernia repair S/P right knee arthroscopy Social History (Updated 09/14/21 @ 16:[address] Ron Castillo MD) household members: spouse Smoking Status: Former smoker second hand exposure: No alcohol intake: never substance use type: does not use caffeine: Yes what type of physical activity do you participate in: other details: Patient has an active lifestyle seatbelt use: always ROS ROS ED Constitutional Constitutional ED: Denies chills, fever(s), subjective, sweats or weight loss Eyes Eyes: Denies blurry vision, change in vision or diplopia ENT ENT ED: Reports other Details: Chronic decreased hearing left ear ; Denies ear pain, rhinorrhea or sore throat Cardiovascular Cardiovascular: Reports chest pain; Denies palpitations or racing heartbeat Respiratory/Chest Respiratory/Chest: Denies cough, dyspnea or dyspnea on exertion Gastrointestinal Gastrointestinal: Reports nausea; Denies abdominal pain or vomiting Genitourinary Genitourinary ED: Reports other Details: States he awoke several times and only dribbled after the first episode of vertigo. ; Denies dysuria, hematuria or urinary frequency Musculoskeletal Musculoskeletal: Denies arthralgias, back pain, myalgias or neck pain Neurologic Neurologic: Denies headache(s), paresthesias or weakness Endocrine Endocrinology: Denies polydipsia, polyphagia or polyuria EXAM Physical Exam Const Vital Signs: 09/14/21 16:29 Temperature 97.9 F Temperature Source Temporal Pulse Rate 74 Respiratory Rate 15 Blood Pressure 159/90 H Blood Pressure Mean 113 Pulse Ox 99 Oxygen Delivery Method Room Air Positive well nourished and well developed General Appearance ED: well developed and NAD; Negative for cyanotic, diaphoretic or pallor HEENT Reports TM's clear and moist mucous membranes HEENT Narrative: There pain. No drainage. Posterior pharynx out erythema or exudate. Uvula midline. There is no angioedema. There is no erythema or exudate noted Negative for trauma or tenderness Tympanic Membrane ED: Yes TM's clear Eyes PERRL and EOMs intact bilaterally Eyes Narrative: There is no nystagmus. There is no APD. General Eye ED: Negative for pale conjunctiva or scleral icterus Neck no lymphadenopathy, supple and no JVD General: other There is no carotid bruits. Resp normal respiratory effort and clear to auscultation bilaterally Cardio regular rate, regular rhythm, S1 normal heart sound, S2 normal heart sound and no murmurs GI normal to inspection, nondistended, normoactive bowel sounds and non-tender Palpation: soft Back/Spine no CVA tenderness Neuro oriented x3 and CN's II-XII intact bilaterally Neuro Narrative: Romberg with eyes open and closes normal. There is no dysmetria. DTR at the bicep, brachialis, tricep, patella and ankle are 1+ and symmetric. There is no clonus or Babinski sign. Gait was observed and normal. The eye askew test was negative. The hint test was negative. Sensorium / Orientation: alert Motor Exam: strength 5/5 throughout Psych mental status grossly normal Skin no rashes or lesions noted and no wounds General Skin Exam: Negative for jaundice or pallor MDM MDM MDM Narrative Medical decision making narrative: EKG was done per nurse protocol and is normal. Patient's history and physical is consistent with benign paroxysmal positional vertigo. He was discharged to home since he has had no symptoms since 1:00 in the morning. EKG Initial EKG: Attestation: I personally reviewed and interpreted this EKG as follows: Interpretation: Sinus Rhythm (EKG is normal with ventricular rate of 79. RI interval is 166 ms. QRS duration 84 ms. QT duration 386 ms. [place] is normal.) Discharge Plan Triage Chief Complaint: Chest Pain ED Provider: Castillo,Ron Dx/Rx/DC Orders Clinical Impression: Benign paroxysmal positional vertigo, Intermittent left-sided chest pain, Essential hypertension Instructions: ED BPV Vertigo Prescriptions: No Action tamsulosin 0.4 MG capsule 0.4 mg PO QHS RF: 0 simvastatin 20 MG tablet 20 mg PO QHS RF: 0 fluticasone propionate 15.8 ML spray,suspension 15.8 ml NS QHS RF: 0 sertraline 50 MG tablet 50 mg PO QHS RF: 0 etodolac 400 MG tablet 400 mg PO QHS RF: 0 multivitamin 1 EACH tablet 1 ea PO QHS RF: 0 rizatriptan 10 MG tablet 10 mg PO .X1 PRN RF: 0 amlodipine 5 MG tablet 5 mg PO DAILY RF: 0 aspirin 81 MG tablet,chewable 81 mg PO DAILY@0800 RF: 0 Primary Care Provider: Warner Lewis Referrals: Warner Lewis MD [Primary Care Provider] - As Needed Disposition Disposition: Home, Self Care
[2021-09-14 16:52] VITALS: BP 152/101; PULSE 72; RESP 18
--- NOTE | 2021-09-14 16:52 | EKG12_ITS ---
Test Reason : CP Blood Pressure : / mmHG Vent. Rate : 079 BPM Atrial Rate : 079 BPM P-R Int : 166 ms QRS Dur : 084 ms QT Int : 386 ms P-R-T Axes : 056 -02 058 degrees QTc Int : 442 ms Normal sinus rhythm Normal ECG Confirmed by LEONOR BUCKLEY, AKIRA ([id number]), science editor HECTOR FISCHER ([id number]) on 09/20/2021 11:02:01 AM Referred By: CHRISTIAN Confirmed By:AKIRA GALVEZ MD
== END 2021-09-14 17:04 | disposition home or self-care (01) ==
LOC: ED 16:58
PROVIDERS: Emergency Provider Emergency Medicine; PCP Family Medicine; Visit Provider Emergency Medicine
DX: H81.10 Benign paroxysmal vertigo, unspecified ear (principal); R07.9 Chest pain, unspecified; I10 Essential (primary) hypertension; Z87.891 Personal history of nicotine dependence; E78.2 Mixed hyperlipidemia; H91.92 Unspecified hearing loss, left ear; Z86.718 Personal history of other venous thrombosis and embolism; K21.9 Gastro-esophageal reflux disease without esophagitis; Z85.46 Personal history of malignant neoplasm of prostate; K58.9 Irritable bowel syndrome, unspecified; M48.00 Spinal stenosis, site unspecified; Z79.82 Long term (current) use of aspirin; Z79.899 Other long term (current) drug therapy
CPT/HCPCS: 93005; 99282; A4216

== ENCOUNTER → 2022-03-01 | Outpatient (CLI) | payer MEDICARE, SELFPAY ==
[2022-03-01 10:40] LABS: PSA,Total- Diagnostic 1.12 ng/mL (0.0-4.0)
== END | disposition home or self-care (01) ==
LOC: LAB 09:48
PROVIDERS: PCP Family Medicine; Referring Provider Urology; Visit Provider Urology
DX: C61 Malignant neoplasm of prostate (principal)
CPT/HCPCS: 36415; 84153

== ENCOUNTER 2022-03-09 12:03 | Emergency (ER) | payer MEDICARE, SELFPAY ==
[2022-03-09 12:05] VITALS: BP 132/72; PULSE 64; RESP 18; TEMP 36.6; O2SAT 100; BMI 27.4
--- NOTE | 2022-03-09 13:29 | CT_ITS ---
STUDY: CT BRAIN WITHOUT CONTRAST REASON FOR EXAM: Male, 76 years old. Additional injury due to a 9'' fall. RADIATION DOSAGE (If Supplied By Facility): CTDIvol = ( 44.99 ) mGy, DLP = ( 779.24 ) mGycm TECHNIQUE: Transaxial CT imaging of the brain was performed without administration of intravenous contrast material. Individualized dose optimization techniques were used for this CT. COMPARISON: No relevant priors. FINDINGS: Normal soft tissue structures. Normal calvarium. There is mild cerebral atrophy with widening of the extra-axial spaces and ventricular dilatation. Normal white matter tracts of the cerebral hemispheres. Normal basal ganglia and thalami. Normal brainstem. Normal cerebellum. There is no intracranial hemorrhage. There are no findings of an acute ischemic infarction. Partial opacification of the ethmoid sinuses bilaterally. CT/Brain/Head without Contrast IMPRESSION: Chronic involutional changes of the brain. Electronically Signed: Mark Kelsey MD at 14:11 EDT ,
--- NOTE | 2022-03-09 13:31 | EDS_ITS ---
HPI HPI - Fall History of Present Illness Chief Complaint: Fall Occured/Mechanism Occurred: Today Fall from Height (ft): 9 feet Usually ambulates: Without assistance Pain/Injury Pain Location: head and chest Quality of Pain: Sharp Worsened by: Nothing Relieved by: Nothing Associated Symptoms Associated Symptoms: Positive for Amnesia; Negative for Parasthesias, Weakness, Loss of function, Inability to ambulate or Loss of consciousness Narrative Narrative: Patient presents after a fall. Patient states he fell approximately 9 feet off of a ladder. Patient states the ladder slid out from under him. Patient states he fell onto his back and hit the back of his head. Patient denies any loss of consciousness. Patient states he does not remember walking from the barn into his house. Patient states this lasted for approximately 5 minutes. Patient denies any paresthesias or weakness. Patient states his pain is sharp. Patient states it is mainly over the back of his head. Patient also admits to some pain in the right side of his chest. Patient denies any shortness of breath. Patient denies any nausea or vomiting. Tetanus Immunization: Unknown [facility] Medical History Chest pain, unspecified Environmental allergies Essential hypertension GERD (gastroesophageal reflux disease) History of DVT (deep vein thrombosis) History of prostate cancer Hyperlipidemia IBS (irritable bowel syndrome) Inguinal hernia of left side without obstruction or gangrene Internal hemorrhoids Melanoma Mixed hyperlipidemia Prostate cancer Radiation proctitis Rectal bleeding Spinal stenosis Tinea cruris Home Medications fluticasone propionate 50 mcg/actuation nasal spray,suspension 15.8 ml NS QHS 09/24/16 [History Last Taken Unknown] sertraline 50 mg tablet 50 mg PO QHS 09/24/16 [History Last Taken Unknown] simvastatin 20 mg tablet 20 mg PO QHS 09/24/16 [History Last Taken Unknown] tamsulosin 0.4 mg capsule 0.4 mg PO QHS 09/24/16 [History Last Taken 12/24/16] etodolac 400 mg tablet 400 mg PO QHS back pain 06/22/17 [History Last Taken Unknown] multivitamin 1 ea PO QHS 02/04/18 [History Last Taken Unknown] amlodipine 5 mg tablet 5 mg PO DAILY 07/21/20 [History Last Taken Unknown] rizatriptan 10 mg tablet 10 mg PO .X1 PRN 07/21/20 [History Last Taken Unknown] Allergy/AdvReac Type Severity Reaction Status Date / Time Sulfa (Sulfonamide AdvReac Hives Verified 03/09/22 12:05 Antibiotics) Family History Brother Cancer prostate Surgical History H/O colonoscopy History of colonoscopy (~01/2018) History of foot surgery History of hemorrhoidectomy (~09/2018) History of inguinal hernia repair (~05/2019) History of partial colectomy S/P inguinal hernia repair S/P right knee arthroscopy Social History household members: spouse Smoking Status: Former smoker second hand exposure: No alcohol intake: never substance use type: does not use caffeine: Yes what type of physical activity do you participate in: other details: Patient has an active lifestyle seatbelt use: always ROS ROS ED Constitutional Constitutional ED: Denies chills or fever(s) Eyes Eyes: Denies blurry vision or change in vision ENT ENT ED: Denies rhinorrhea or sore throat Cardiovascular Cardiovascular: Reports chest pain; Denies palpitations Respiratory/Chest Respiratory/Chest: Denies cough or dyspnea Gastrointestinal Gastrointestinal: Denies nausea or vomiting Genitourinary Genitourinary ED: Denies dysuria or hematuria Musculoskeletal Musculoskeletal: Reports back pain; Denies neck pain Integumentary Denies abscess or rash Neurologic Neurologic: Reports headache(s); Denies weakness Allergic/Immunologic Allergic/Immunologic ED: Denies mouth swelling or urticaria EXAM Physical Exam Const Vital Signs: 03/09/22 12:05 03/09/22 13:11 03/09/22 14:00 Temperature 97.8 F Temperature Source Temporal Pulse Rate 64 84 Respiratory Rate 18 18 Respiratory Effort Normal Blood Pressure 132/72 H Blood Pressure Mean 92 Pulse Ox 100 97 Oxygen Delivery Method Room Air Room Air Positive well nourished and well developed General Appearance ED: well developed and NAD HEENT HEENT Narrative: There is a 2.5 cm full-thickness linear laceration over the occipital scalp. There is mild to moderate gapping of the wound margins. There is mild bleeding. There are no foreign bodies. There is no bony crepitance or step-off. There is tenderness to palpation around the area. tenderness Eyes PERRL and EOMs intact bilaterally Neck full ROM Chest Wall Chest Narrative: There is tenderness along the right chest wall. There is no bony crepitance or step-off. There is no subcutaneous emphysema. Resp normal respiratory effort and clear to auscultation bilaterally Cardio regular rate and regular rhythm Back/Spine Cervical Spine: Negative for cervical spine tenderness Thoracic Spine / Upper Back: Negative for thoracic spinal tenderness Lumbar Spine / Lower Back: Negative for lumbar spinal tenderness Neuro oriented x3, CN's II-XII intact bilaterally, moves all extremities, no focal motor deficits and no sensory deficits noted Sensorium / Orientation: alert Motor Exam: strength 5/5 throughout Psych mental status grossly normal MDM MDM MDM Narrative Medical decision making narrative: CT scan of the brain was obtained. There is no acute intracranial abnormality. There are chronic involutional changes. This was interpreted by the radiologist and reviewed by myself. X-rays of the right ribs were obtained. There are 5 views. On my interpretation, there is no acute fracture. There is no pneumothorax. Radiologist also interpreted the x-rays and agrees. LET gel was applied to the wound. The wound was cleaned and irrigated with copious amounts of normal saline. The wound was anesthetized with 1% lidocaine with epinephrine. 5 caryn were applied to the wound. There is good hemostasis. Patient tolerated the procedure well. Bacitracin dressing was applied. Patient was given a tetanus booster. Patient was instructed to follow-up with his primary care in 5 to 7 days for wound recheck and staple removal. Patient understood and was agreeable with the plan. All questions were answered. Radiography Diagnostic Testing: Clinical Impression(s) from Imaging Studies Brain CT 03/09/22 13:29 IMPRESSION: Chronic involutional changes of the brain. Electronically Signed: Mark Kelsey MD at 14:11 EDT , Ribs w/Chest X-Ray 03/09/22 14:00 IMPRESSION: RIBS: Normal x-ray examination of the ribs. CHEST: Stable mild linear scarring at the lung bases. Electronically Signed: Mark Kelsey MD at 14:12 EDT , Discharge Plan Triage Chief Complaint: Fall ED Provider: Santiago Henry Dx/Rx/DC Orders Clinical Impression: Laceration of scalp, Closed head injury, Chest wall contusion Instructions: ED Head Injury (Adult), ED Laceration Scalp Stitches or Caryn, ED Rib Contusion or Minor Fracture Prescriptions: No Action tamsulosin 0.4 MG capsule 0.4 mg PO QHS simvastatin 20 MG tablet 20 mg PO QHS fluticasone propionate 15.8 ML spray,suspension 15.8 ml NS QHS sertraline 50 MG tablet 50 mg PO QHS etodolac 400 MG tablet 400 mg PO QHS multivitamin 1 EACH tablet 1 ea PO QHS rizatriptan 10 MG tablet 10 mg PO .X1 PRN amlodipine 5 MG tablet 5 mg PO DAILY Primary Care Provider: Warner Lewis Referrals: Warner Lewis MD [Primary Care Provider] - 5 Days for suture removal Disposition Disposition: Home, Self Care
[2022-03-09] MEDS: Lidocaine 1% /Epi 1:100 (20ml) 20 ML Vial INFILT (13:33)
[2022-03-09 14:00] VITALS: PULSE 84; RESP 18; O2SAT 97
--- NOTE | 2022-03-09 14:00 | RAD_ITS ---
STUDY: X-RAY - UNILATERAL RIBS ( RIGHT ) WITH CHEST REASON FOR EXAM: Male, 76 years old. Upper right rib pain following a fall. TECHNIQUE - RIBS: 4 view(s) of the ribs. TECHNIQUE - CHEST: Single PA view of the chest. COMPARISON: Comparison is made with prior examination dated 06/24/2018. FINDINGS - RIBS: Normal visualized ribs without a demonstrated fracture. FINDINGS - CHEST: Stable mild scarring at the lung bases. There is no demonstrated pleural abnormality. Normal size heart. Normal mediastinum and autumn. Normal visualized pulmonary arteries. There is atherosclerotic calcification of the aortic arch with tortuosity. There are diffuse degenerative changes of the visualized thoracic spine. Normal visualized ribs, clavicles, and shoulders. There is no demonstrated abnormality of the visualized soft tissue structures of the upper abdomen. RAD/Ribs Uni Min 3V w/PA Chest IMPRESSION: RIBS: Normal x-ray examination of the ribs. CHEST: Stable mild linear scarring at the lung bases. Electronically Signed: Mark Kelsey MD at 14:12 EDT ,
[2022-03-09] MEDS: Lidocaine/Epi/Tetracaine 50 ML 1 APPLIC TOPICAL (14:31)
[2022-03-09] MEDS: Diphth,Pertuss(Acell),Tet Vac 0.5 ML Vial IM (14:37)
[2022-03-09 15:31] VITALS: BP 134/73; PULSE 68; RESP 17; O2SAT 99
== END 2022-03-09 15:35 | disposition home or self-care (01) ==
PROVIDERS: Emergency Provider Emergency Medicine; PCP Family Medicine; Visit Provider Emergency Medicine
DX: S01.01XA Laceration without foreign body of scalp, initial encounter (principal); W11.XXXA Fall on and from ladder, initial encounter; K21.9 Gastro-esophageal reflux disease without esophagitis; Z86.718 Personal history of other venous thrombosis and embolism; Z85.46 Personal history of malignant neoplasm of prostate; E78.5 Hyperlipidemia, unspecified; K58.9 Irritable bowel syndrome, unspecified; Z85.820 Personal history of malignant melanoma of skin; M48.00 Spinal stenosis, site unspecified; I10 Essential (primary) hypertension; Z79.899 Other long term (current) drug therapy; Z87.891 Personal history of nicotine dependence; S20.211A Contusion of right front wall of thorax, initial encounter; Z23 Encounter for immunization
CPT/HCPCS: 12001; 70450; 71101; 90471; 90715; 99283

== ENCOUNTER → 2023-02-28 | Outpatient (CLI) | payer MEDICARE, SELFPAY ==
[2023-02-28 12:05] LABS: PSA,Total- Diagnostic 1.45 ng/mL (0.0-4.0)
== END | disposition home or self-care (01) ==
PROVIDERS: PCP Family Medicine; Referring Provider Urology; Visit Provider Urology
DX: C61 Malignant neoplasm of prostate (principal)
CPT/HCPCS: 36415; 84153

== ENCOUNTER → 2023-04-19 | Outpatient (CLI) | payer MEDICARE, SELFPAY ==
--- NOTE | 2023-04-19 | ASPS_PTH ---
PATIENT: FRANTZ MEYERS [facility] U#:[id number] AGE/SX: 77/M ROOM: RE04/19/[address]: Dr. Galen Levin MD : 1945 BED: DIS: 04/19/2023 SPEC #: [id number] RECD: 04/19/23 12:56 STATUS: JOHN REAliya #: [id number] DENISE: 04/19/23 00:[address]: Galen Levin DEPT: CYTOLOGY RECD BY: Bret Jimenez ENTERED: 04/19/23 12:56 SP TYPE: ASPIRATION OTHR DR: Dr. Warner Lewis MD Tissues: Thyroid gland, NOS Procedures: Special Stain Group II Cytology Other HEADER OPERATION: Left thyroid fine needle aspiration PRE-OP DIAGNOSIS: Left thyroid nodule TISSUE SUBMITTED: Left thyroid nodule DIAGNOSIS CYTOLOGY Fine needle aspiration, left thyroid nodule (smears): Adequate for evaluation. Consistent with benign follicular nodule with cystic change, Kersey Category II. See comment. AM:davi 04/22/2023 COMMENT The Kersey System for thyroid diagnostic categorization was used in the evaluation of this case. CYTOLOGY STUDY Slides are reviewed. CYTOLOGY GROSS Received are 6 smears labeled with the patient's name and designated per the requisition as left thyroid Submitted for staining. / 04/19/2023 TC:5 [facility]: [id number]
== END | disposition home or self-care (01) ==
LOC: LABSPEC 12:26
PROVIDERS: PCP Family Medicine; Referring Provider Surgery; Visit Provider Surgery
DX: E04.1 Nontoxic single thyroid nodule (principal)
CPT/HCPCS: 88161; 88313

== ENCOUNTER → 2023-07-26 | Outpatient (CLI) | payer MEDICARE, SELFPAY ==
--- NOTE | 2023-07-26 13:42 | CT_ITS ---
EXAM: CT MAXILLOFACIAL WITHOUT INTRAVENOUS CONTRAST CLINICAL INDICATION: CHRONIC SINUSITIS TECHNIQUE: Helically acquired images were obtained of the face without intravenous contrast. This CT exam was performed using one or more of the following dose reduction techniques: automated exposure control, adjustment of the mA and/or kV according to patient size, and/or use of iterative reconstruction technique. COMPARISON: No relevant prior studies available. FINDINGS: Nasal cavity: Mild deviation of the nasal septum. Left-sided septal spur. SOFT TISSUES: Normal. No focal subcutaneous swelling. No discrete fluid collections. ORBITS: Normal. Both globes are unremarkable. Extraocular muscles are normal. Retrobulbar fat appears unremarkable. SUBMANDIBULAR/PAROTID GLANDS: Left submandibular gland is absent. SINUSES: Mucosal thickening noted within the paranasal sinuses sparing the maxillary sinuses. MASTOID AIR CELLS: Unremarkable as visualized. Clear. CT/Sinus/Facial Bone IMPRESSION: Mild paranasal sinusitis. As above. Electronically Signed: Juan Gómez MD at 11:45 EST ,
== END | disposition home or self-care (01) ==
PROVIDERS: PCP Family Medicine; Referring Provider Otolaryngology; Visit Provider Otolaryngology
DX: J32.8 Other chronic sinusitis (principal)
CPT/HCPCS: 70486

== ENCOUNTER 2023-08-20 15:49 | Emergency (ER) | payer MEDICARE, SELFPAY ==
[2023-08-20 15:50] VITALS: BP 154/93; PULSE 77; PULSE 79; RESP 16; TEMP 36.2; O2SAT 97; O2SAT 98; BMI 27.4
--- NOTE | 2023-08-20 16:33 | EKG12_ITS ---
Test Reason : CHEST PRESSURE Blood Pressure : / mmHG Vent. Rate : 074 BPM Atrial Rate : 074 BPM P-R Int : 162 ms QRS Dur : 078 ms QT Int : 364 ms P-R-T Axes : 053 008 050 degrees QTc Int : 404 ms Normal sinus rhythm Normal ECG Confirmed by MARGARITA BUCKLEY, MOO ([id number]), newspaper copy editor GREG REAL ([id number]) on 08/22/2023 6:21:33 AM Referred By: AMRIT/DAVIS Confirmed By:MOO AVILA MD
[2023-08-20 16:52] VITALS: BP 143/84; PULSE 76; RESP 13; O2SAT 97; O2SAT 98
[2023-08-20 16:59] LABS: Absolute Lymphocyte Count 0.76 X10^3/uL (0.83-4.51); Absolute Neutrophil Count 4.9 X10^3/uL (2.0-7.7); Basophil# 0.04 X10^3/uL; Basophil% 0.6 % (0-1); Eosinophil# 0.06 X10^3/uL; Hematocrit 42.2 % (40-54); Hemoglobin 14.1 g/dL (13.0-16.5); Lymphocyte # 0.76 X10^3/ul (0.83-4.51); Lymphocyte % 12.1 % (19-41); Mean Corp Hgb Conc 33.4 g/dL (32-36); Mean Corpuscular Hgb 29.4 pg (27.0-32.0); Mean Corpuscular Volume 87.9 fL (80-94); Mean Platelet Vol. 9.4 fl (6.2-12.0); NRBC Flagged by Analyzer 0 % (0-5); Neutrophil # 4.91 X10^3/uL (2.7-7.7); Neutrophil % 78.1 % (47-70); Platelet Count 261 K/mm3 (150-450); RBC Distribution Width CV 14.1 % (11.6-14.6); RBC Distribution Width SD 45.4 fl (35.1-43.9); White Blood Count 6.3 K/mm3 (4.4-11.0)
[2023-08-20 17:00] VITALS: BP 143/80; PULSE 74; RESP 16; O2SAT 94
--- NOTE | 2023-08-20 17:00 | RAD_ITS ---
EXAM: XR CHEST, 1 VIEW CLINICAL INDICATION: chest pain TECHNIQUE: Frontal view of the chest. COMPARISON: No relevant prior studies available. FINDINGS: LUNGS AND PLEURAL SPACES: Unremarkable. No consolidation or edema. No pneumothorax. No effusion. HEART: Unremarkable. Cardiac silhouette not enlarged. MEDIASTINUM: Central airways and mediastinal contour are unremarkable. BONES/JOINTS: Unremarkable. No acute fracture. SOFT TISSUES: Unremarkable. RAD/Chest 1 View (Portable) IMPRESSION: No radiographic evidence of acute cardiopulmonary disease. Electronically Signed: Zoltan Jauregui MD at 17:43 EDT ,
--- NOTE | 2023-08-20 17:02 | ED.VIS.CHEST ---
HPI History of Present Illness Chief Complaint: Chest Pain Informant: patient Narrative Narrative: Patient is a 78-year-old male with history of chronic sinusitis, hypertension, chronic back pain and hyperlipidemia as well as prior prostate cancer with subsequent radiation proctitis presenting with chest discomfort. He reports he has had discomfort in a bandlike distribution from the right to the left of his lower chest for the past few days. He states is not painful but more of a discomfort. He also notes he has a vibration underneath his left breast. Denies any associated shortness of breath, arm or jaw pain. He notes he had 1 similar episode like this in the past remotely but nothing ever came of it. Notes he has had night sweats and nonproductive cough recently. Has chronic congestion is actually due to have some type of sinus cleanout/procedure in a week or 2. Has not been sleeping well and has had increased rest and anxiety associated with the symptoms. Also notes that a week ago he had his regular scheduled back injection with Dr. Garcia. Notes that unlike prior times he has had no improvement of his symptoms which include leg weakness and tingling down his right leg but he is not having worsening symptoms. Denies any associated bowel or bladder incontinence. Denies any new urinary retention. No other complaints or concerns reported at this time. No nausea, vomiting, change in bowel habits or sore throat reported. [facility] Medical History Chest pain, unspecified Environmental allergies Essential hypertension GERD (gastroesophageal reflux disease) History of DVT (deep vein thrombosis) History of prostate cancer Hyperlipidemia IBS (irritable bowel syndrome) Inguinal hernia of left side without obstruction or gangrene Internal hemorrhoids Melanoma Mixed hyperlipidemia Prostate cancer Radiation proctitis Rectal bleeding Spinal stenosis Tinea cruris Home Medications fluticasone propionate 50 mcg/actuation nasal spray,suspension 1 spray NS QHS 09/24/16 [History Last Taken Unknown] sertraline 50 mg tablet 50 mg PO QHS 09/24/16 [History Last Taken Unknown] simvastatin 20 mg tablet 20 mg PO QHS 09/24/16 [History Last Taken Unknown] tamsulosin 0.4 mg capsule 0.4 mg PO QHS 09/24/16 [History Last Taken 12/24/16] etodolac 400 mg tablet 400 mg PO QHS back pain 06/22/17 [History Last Taken Unknown] multivitamin 1 ea PO QHS 02/04/18 [History Last Taken Unknown] amlodipine 5 mg tablet 5 mg PO DAILY 07/21/20 [History Last Taken Unknown] rizatriptan 10 mg tablet 10 mg PO .X1 PRN 07/21/20 [History Last Taken Unknown] Allergy/AdvReac Type Severity Reaction Status Date / Time Sulfa (Sulfonamide AdvReac Hives Verified 08/20/23 15:52 Antibiotics) Family History Brother Cancer prostate Surgical History H/O colonoscopy History of colonoscopy (~01/2018) History of foot surgery History of hemorrhoidectomy (~09/2018) History of inguinal hernia repair (~05/2019) History of partial colectomy S/P inguinal hernia repair S/P right knee arthroscopy Social History household members: spouse Smoking Status: Former smoker second hand exposure: No alcohol intake: never substance use type: does not use caffeine: Yes what type of physical activity do you participate in: other details: Patient has an active lifestyle seatbelt use: always ROS ROS ED Constitutional Constitutional ED: Reports sweats; Denies chills or fever(s) ENT ENT ED: Reports other Details: nasal congestion ; Denies rhinorrhea or sore throat Cardiovascular Cardiovascular: Reports as per HPI and chest pain; Denies palpitations Respiratory/Chest Respiratory/Chest: Reports cough; Denies dyspnea or sputum Gastrointestinal Gastrointestinal: Denies abdominal pain, nausea or vomiting Genitourinary Genitourinary ED: Denies dysuria or hematuria Musculoskeletal Musculoskeletal: Reports back pain; Denies arthralgias or myalgias Neurologic Neurologic: Denies headache(s) Psychiatric Psychiatric: Denies anxiety Hematologic/Lymphatic Hematologic/Lymphatic: Denies easy bleeding EXAM Physical Exam Const Vital Signs: 08/20/23 15:50 08/20/23 15:50 08/20/23 16:52 Temperature 97.2 F L 97.2 F L Temperature Source Temporal Temporal Pulse Rate 79 77 Respiratory Rate 16 16 Respiratory Effort Blood Pressure 154/93 H 154/93 H Blood Pressure Mean 113 113 Pulse Ox 98 97 98 Oxygen Delivery Method Room Air Room Air Room Air 08/20/23 16:52 08/20/23 17:00 08/20/23 17:06 Temperature Temperature Source Pulse Rate 76 74 Respiratory Rate 13 16 Respiratory Effort Normal Blood Pressure 143/84 H 143/80 H Blood Pressure Mean 103 101 Pulse Ox 97 94 Oxygen Delivery Method Room Air Room Air 08/20/23 18:00 08/20/23 19:00 Temperature Temperature Source Pulse Rate 66 67 Respiratory Rate 13 16 Respiratory Effort Blood Pressure 136/87 H 147/83 H Blood Pressure Mean 103 104 Pulse Ox 97 97 Oxygen Delivery Method Room Air Room Air Positive well nourished and well developed General Appearance ED: well developed and NAD HEENT Reports moist mucous membranes normocephalic and atraumatic Eyes EOMs intact bilaterally Neck supple and no JVD Chest Wall inspection of chest normal and palpation of chest normal Chest: Negative for tenderness Resp normal respiratory effort and clear to auscultation bilaterally Cardio regular rate, regular rhythm and no murmurs GI normal to inspection, nondistended, normoactive bowel sounds, soft to palpation and non-tender Back/Spine no CVA tenderness and no thoracic nor lumbar tenderness Extremity normal to inspection General Extremety ED: Negative for edema General Extremity: Negative for edema Neuro oriented x3 and no sensory deficits noted Sensorium / Orientation: awake and alert Motor Exam: strength 5/5 throughout; Negative for general weakness Psych mental status grossly normal Skin no rashes or lesions noted and no wounds Heart Score History: Slightly/Non-Suspicious ECG: Normal Age: >/= 65 years Risk Factors: 1 or 2 Risk Factors Troponin: </= Normal Limit Score: 3 MDM MDM MDM Narrative Medical decision making narrative: Patient is evaluated for chest pain. Had vital signs significant for mildly elevated blood pressure. I does have history of DVT so we will obtain a D-dimer as well. Cardiac workup was largely negative including a normal D-dimer and normal high since he troponin x 2 (5 and 5). CBC and CMP largely unremarkable. Lipase is also normal. Chest x-ray does not show any acute process. Chest x-ray viewed by myself as well as radiology. The exact cause of this chest pain is not clear however at this time I do not think there is an acute cardiopulmonary emergency going on I do not think requires admission or further workup inpatient. He is given return precautions. Will be discharged home with outpatient follow-up. Is offered a GI cocktail in case the symptoms are more GI in nature however he declines and states that he will take antacids at home. Is given return precautions. Patient verbalizes agreement or stands plan. Discharged home in stable condition. Lab Data Attestation: I reviewed the patient's lab results. Labs: Laboratory Results - last 24 hr 08/20/23 08/20/23 16:40 18:53 WBC 6.3 RBC 4.80 Hgb 14.1 Hct 42.2 MCV 87.9 MCH 29.4 MCHC 33.4 RDW Std Deviation 45.4 H RDW Coeff of Akash 14.1 Plt Count 261 MPV 9.4 Immature Gran % (Auto) 0.200 Neut % (Auto) 78.1 H Lymph % (Auto) 12.1 L [place] % (Auto) 8.0 Eos % (Auto) 1.0 Baso % (Auto) 0.6 Absolute Neuts (auto) 4.9 Absolute Lymphs (auto) 0.76 L Nucleated RBC % 0 D-Dimer Quant (PE/DVT) < 0.27 L Sodium 141 Potassium 3.8 Chloride 108 H Carbon Dioxide 27.0 Anion Gap 6 BUN 22 H Creatinine 0.87 Estim Creat Clear Calc 67.31 Est GFR (MDRD) Af Amer 109 Est GFR (MDRD) Non-Af 90 BUN/Creatinine Ratio 25.4 H Glucose 90 Calcium 9.1 Magnesium 2.1 Total Bilirubin 0.60 Direct Bilirubin 0.16 AST 16 ALT 23 Alkaline Phosphatase 60 Troponin I High Sens 5 5 Total Protein 7.3 Albumin 3.7 Globulin 3.6 Lipase 40 Radiography Chest X-Ray - ED: 2 View, Read by ED Physician, Read by Radiologist and No Acute Disease Diagnostic Testing: Clinical Impression(s) from Imaging Studies Chest X-Ray 08/20/23 17:00 IMPRESSION: No radiographic evidence of acute cardiopulmonary disease. Electronically Signed: Zoltan Jauregui MD at 17:43 EDT , Rhythm Strip Rhythm Strip: Sinus Rhythm Rate: 74 Ectopy: None EKG Initial EKG: Attestation: I personally reviewed and interpreted this EKG as follows: Interpretation: Sinus Rhythm Comments: Normal sinus rhythm rate of 74 bpm Normal axis Normal intervals Normal ST segments Prior EKG tracings: available for review Prior: Unchanged Discharge Plan Triage Chief Complaint: Chest Pain ED Provider: Debora Knapp Dx/Rx/DC Orders Clinical Impression: Chest pain, unspecified Instructions: ED Chest Pain, Uncertain Cause Prescriptions: No Action tamsulosin 0.4 MG capsule 0.4 mg PO QHS simvastatin 20 MG tablet 20 mg PO QHS fluticasone propionate 15.8 ML spray,suspension 1 spray NS QHS sertraline 50 MG tablet 50 mg PO QHS etodolac 400 MG tablet 400 mg PO QHS multivitamin 1 EACH tablet 1 ea PO QHS rizatriptan 10 MG tablet 10 mg PO .X1 PRN amlodipine 5 MG tablet 5 mg PO DAILY Primary Care Provider: Warner Lewis Referrals: Warner Lewis MD [Primary Care Provider] - Activity Restrictions/Additional Instructions: Your cardiac workup was largely normal today. The exact cause is not clear. I recommend trying antacids as we discussed to see if this helps with your pain. I would recommend outpatient follow-up at this time you do not need to be admitted to the hospital. Disposition Disposition: Home, Self Care
[2023-08-20 17:26] LABS: AST(SGOT) 16 U/L (15-37); Alanine Aminotransfer ALT/SGPT 23 U/L (16-61); Albumin, Serum 3.7 g/dL (3.2-5.0); Alkaline Phosphatase 60 U/L (45-117); Anion Gap 6 (5-15); BUN 22 mg/dL (7-18); BUN/Creat Ratio 25.4 RATIO (10-20); Bilirubin, Direct 0.16 mg/dL (0.00-0.30); Calcium,Total 9.1 mg/dL (8.5-10.1); Chloride 108 mmol/L (98-107); Creatinine, Serum 0.87 mg/dL (0.70-1.30); EST Glomerular Filtration Rate 90 mL/min (>60); Est Glom Filt Rate - Afr Amer 109 mL/min (>60); Estimated Creatinine Clearance 67.31 ml/min; Globulin 3.6 g/dL (2.2-4.2); Glucose 90 mg/dL (74-106); Lipase 40 U/L (13-75); Magnesium 2.1 mg/dL (1.6-2.6); Potassium 3.8 mmol/L (3.5-5.1); Protein, Total 7.3 g/dL (6.4-8.2); Sodium Level 141 mmol/L (136-145); Troponin-I HS (w/2H Reflex) 5 pg/mL (3.0-78.0)
[2023-08-20 17:51] LABS: D-Dimer Quantitative (DVT/PE) < 0.27 FEU/ug/m (0.27-0.49)
[2023-08-20 18:00] VITALS: BP 136/87; PULSE 66; RESP 13; O2SAT 97
[2023-08-20 19:00] VITALS: BP 147/83; PULSE 67; RESP 16; O2SAT 97
[2023-08-20 19:07] LABS: Reflex Troponin-HS? (from REC) Y
[2023-08-20 19:36] LABS: Troponin-I HS 5 pg/mL (3.0-78.0)
[2023-08-20 20:00] VITALS: BP 124/78; PULSE 64; RESP 16; TEMP 36.4; O2SAT 99
== END 2023-08-20 20:31 | disposition home or self-care (01) ==
PROVIDERS: Emergency Provider Emergency Medicine; PCP Family Medicine; Visit Provider Emergency Medicine
DX: R07.9 Chest pain, unspecified (principal); I10 Essential (primary) hypertension; Z87.891 Personal history of nicotine dependence; E78.5 Hyperlipidemia, unspecified; Z85.46 Personal history of malignant neoplasm of prostate; Z79.899 Other long term (current) drug therapy; Z90.49 Acquired absence of other specified parts of digestive tract
CPT/HCPCS: 71045; 80048; 80076; 83690; 83735; 84484; 85025; 85379; 87631; 93005; 99284

== ENCOUNTER → 2024-03-05 | Outpatient (CLI) | payer MEDICARE, SELFPAY ==
[2024-03-05 11:12] LABS: PSA,Total- Diagnostic 1.23 ng/mL (0.0-4.0)
== END | disposition home or self-care (01) ==
LOC: LAB 10:10
PROVIDERS: PCP Family Medicine; Referring Provider Urology; Visit Provider Urology
DX: C61 Malignant neoplasm of prostate (principal)
CPT/HCPCS: 36415; 84153

== ENCOUNTER → 2025-03-10 | Outpatient (CLI) | payer MEDICARE, SELFPAY ==
[2025-03-10 11:11] LABS: PSA,Total- Diagnostic 1.13 ng/mL (0.00-4.00)
== END | disposition home or self-care (01) ==
PROVIDERS: PCP Family Medicine; Referring Provider Urology; Visit Provider Urology
DX: C61 Malignant neoplasm of prostate (principal)
CPT/HCPCS: 36415; 84153